=== PATIENT | female | born 1970 | race African-American/Black ===

== ENCOUNTER 2018-01-09 12:42 | Inpatient (IN) | payer OTHER ==
[2018-01-09] MEDS ORDERED: KETOROLAC TROMETHAMINE 30 MG/1 ML VIAL IVPUSH ONE (13:24)
[2018-01-09] MEDS ORDERED: diazePAM 5 MG TABLET PO ONE (13:25)
--- NOTE | 2018-01-09 13:31 | PDOC ---
History of Present Illness - General Chief Complaint: Pain Stated Complaint: BACK INJURY /PAIN Time Seen by Provider: 01/09/18 12:58 History Source: Patient Exam Limitations: No Limitations - History of Present Illness Initial Comments: 01/09/18 13:25 47 yr female with history of chronic back pain followed by pain management states woke up today with 10/10 low back pain left side more thatn right radiates to left leg. Pt has had this pain before however today is worse. Pt denies any recent trauma, no heavy lifting or bending. Pt denies any urine or bowel dysfunction. Pt took flexeril and meloxicamb this morning with no relief. Occurred: reports: this morning Severity: reports: severe Pain Location: reports: back Past History - Past Medical History Allergies/Adverse Reactions: Allergies Allergy/AdvReac Type Severity Reaction Status Date / Time No Known Allergies Allergy Verified 01/09/18 12:47 Home Medications: Ambulatory Orders Cyclobenzaprine HCl 10 mg PO ASDIR 01/09/18 Meloxicam 15 mg PO ASDIR 01/09/18 COPD: No Other medical history: chronic lower back pain 2016 s\p fall - Suicide/Smoking/Psychosocial Hx Smoking History: Current every day smoker Number of Cigarettes Smoked Daily: 5 Information on smoking cessation initiated: No Trauma Specific PMHX - Complaint Specific PMHX Arthritis: No Back Injury: Yes (work related 1 yr ago ) Review of Systems - Review of Systems Able to Perform ROS?: Yes Is the patient limited Italian proficient: No Constitutional: No: Symptoms Reported HEENTM: No: Symptoms Reported Respiratory: No: Symptoms reported Cardiac (ROS): No: Symptoms Reported ABD/GI: No: Symptoms Reported : No: Symptoms Reported Musculoskeletal: Yes: Back Pain *Physical Exam - Vital Signs Last Vital Signs Temp Pulse Resp BP Pulse Ox 98 F 86 18 133/91 97 01/09/18 12:45 01/09/18 12:45 01/09/18 12:45 01/09/18 12:45 01/09/18 12:45 - Physical Exam General Appearance: Yes: Nourished, Appropriately Dressed HEENT: positive: EOMI, CHELSY Neck: positive: Supple. negative: Tender Respiratory/Chest: positive: Lungs Clear, Normal Breath Sounds Cardiovascular: positive: Regular Rhythm, Regular Rate Musculoskeletal: positive: Normal Inspection, Decreased Range of Motion, Muscle Spasm, Vertebral Tenderness, Other (lumbar apraspinal soft tissue ttp , lumbar spine ttp ). negative: CVA Tenderness, CVA Tenderness (R), CVA Tenderness (L) Extremity: positive: Normal Capillary Refill, Normal Inspection, Other ( decreased ROM left leg due to pain ) Integumentary: positive: Normal Color, Dry, Warm Neurologic: positive: Normal Response, Motor Strength 5/5 ED Treatment Course - LABORATORY CBC & Chemistry Diagram: 01/09/18 13:35 01/09/18 17:10 Medical Decision Making - Medical Decision Making 01/09/18 13:30 cc: low back pain acute on chronic worse this AM pain radiates to left leg with numbness and tingling to the left leg neg saddle anesthesia neg urine or bowel dysfunction pt ambulatory with assistance, no fever no abd pain no rashes to skin noted will give iv toradol, check UA, cbc 01/09/18 15:02 pt states no relief from toradol or valium, states the pain is still 10/10 pt states she is unable to walk due to the pain 01/09/18 15:40 pt has had percocet with no relief. pt continues to cry as she stands up in pain , refuses to take afew steps due to left leg feeling weak and pain. at this time pt will be transfered to the Main ER for further workup possible observation admission. I have signed pt out to REJI Love charge nurse Aziza whitehead pt to go to [facility] in the main ER *DC/Admit/Observation/Transfer Diagnosis at time of Disposition: Low back pain Qualifiers: Chronicity: acute Back pain laterality: left Sciatica presence: with sciatica Sciatica laterality: sciatica of left side Qualified Code(s): M54.42 - Lumbago with sciatica, left side - Referrals Referrals: Tripp Ballesteros MD [Staff Physician] - - Patient Instructions Additional Instructions: apply ice every 2hrs for 20 minutes then apply heating pad for 30 minutes and repeat this for the next few days take percocet for severe pain, do not take with flexeril do not drive or drink alcohol while taking this medication take the steroid dose pack as directed stop taking the meloxicamb follow with your doctor this week - Post Discharge Activity
[2018-01-09] MEDS ORDERED: diazePAM 5 MG TABLET ONE (13:37)
[2018-01-09] MEDS ORDERED: KETOROLAC TROMETHAMINE 30 MG/1 ML VIAL ONE (13:37)
[2018-01-09 13:46] LABS: BASO % 0.8 % (0-2.0); HEMATOCRIT 36.2 % (32.4-45.2); LYMPH % 23.5 % (8-40); MCHC 33.2 g/dl (32.0-36.0); MEAN CELL VOLUME 81.2 fl (80-96); MEAN PLT VOLUME 8.7 fl (7.5-11.1); MONO % 5.2 % (3.8-10.2); NEUT % 69.5 % (42.8-82.8); PLATELET COUNT 268 K/MM3 (134-434); RBC 4.45 M/mm3 (3.60-5.2); RDW 15.9 % (11.6-15.6); WHITE BLOOD COUNT 7.3 K/mm3 (4.0-10.0)
[2018-01-09 13:56] LABS: URINE APPEARANCE SLCLOUDY; URINE BILIRUBIN NEGATIVE (<2.0 mg/dL); URINE GLUCOSE (UA) NEGATIVE (NEGATIVE); URINE KETONE NEGATIVE (NEGATIVE); URINE LEUK ESTERASE TRACE (NEGATIVE); URINE NITRITE NEGATIVE (NEGATIVE); URINE PROTEIN NEGATIVE (NEGATIVE)
[2018-01-09 13:57] LABS: HCG,QUALITATIVE URINE Negative
[2018-01-09 13:59] LABS: URINE COLOR DK YELLOW
[2018-01-09 14:00] LABS: EPI CELLS MODERATE /HPF (FEW); URINE MUCUS MANY
[2018-01-09] MEDS ORDERED: morphine CARPU-JECT 4 MG/1 ML DISP.SYRIN IM ONE (16:05)
[2018-01-09] MEDS ORDERED: morphine CARPU-JECT 4 MG/1 ML DISP.SYRIN IVPUSH ONE ×2 (16:33→18:12)
[2018-01-09] MEDS ORDERED: MORPHINE SULFATE 10 MG/1 ML *VIAL ONE (16:34)
--- NOTE | 2018-01-09 16:35 | PDOC ---
*Physical Exam - Vital Signs Last Vital Signs Temp Pulse Resp BP Pulse Ox 98 F 86 18 133/91 97 01/09/18 12:45 01/09/18 12:45 01/09/18 12:45 01/09/18 12:45 01/09/18 12:45 - Physical Exam Comments: 01/09/18 16:54 crying in ED General Appearance: Yes: Severe Distress Respiratory/Chest: negative: Respiratory Distress Gastrointestinal/Abdominal: positive: Tender, Soft. negative: Pulsatile Mass Lymphatic: negative: Tenderness Musculoskeletal: negative: CVA Tenderness Extremity: positive: Normal Inspection Integumentary: positive: Dry, Warm Neurologic: positive: Fully Oriented, Alert, Normal Mood/Affect (2/5 strength to LLE, unbale to bear weight) ED Treatment Course - LABORATORY CBC & Chemistry Diagram: 01/09/18 13:35 01/09/18 17:10 - ADDITIONAL ORDERS Additional order review: Laboratory Results 01/09/18 13:15 Urine Color Dk yellow Urine Appearance Slcloudy Urine pH 5.0 Ur Specific [place] 1.020 Urine Protein Negative Urine Glucose (UA) Negative Urine Ketones Negative Urine Blood Negative Urine Nitrite Negative Urine Bilirubin Negative Urine Urobilinogen 2.0 H Ur Leukocyte Esterase Trace Urine WBC (Auto) 27 Urine RBC (Auto) 8 Ur Epithelial Cells Moderate Urine Mucus Many Urine HCG, Qual Negative 01/09/18 13:35 RBC 4.45 MCV 81.2 MCHC 33.2 RDW 15.9 H MPV 8.7 Neutrophils % 69.5 Lymphocytes % 23.5 Monocytes % 5.2 Eosinophils % 1.0 Basophils % 0.8 - RADIOLOGY Radiology Studies Ordered: Category Date Time Status LUMBAR SPINE CT W/O CONTRAST [CT] Stat CT Scan 01/09/18 16:05 Ordered - Medications Given in the ED: ED Medications Discontinued Medications Generic Name Dose Route Start Last Admin Trade Name Freq PRN Reason Stop Dose Admin Diazepam 5 mg 01/09/18 13:25 01/09/18 13:40 Valium - PO 01/09/18 13:26 5 mg ONCE ONE Administration Ketorolac Tromethamine 30 mg 01/09/18 13:24 01/09/18 13:40 Toradol Injection - IVPUSH 01/09/18 13:25 30 mg ONCE ONE Administration Oxycodone/Acetaminophen 1 combo 01/09/18 15:04 01/09/18 15:16 Percocet 5/325 - PO 01/09/18 15:05 1 combo ONCE ONE Administration Medical Decision Making - Medical Decision Making 01/09/18 16:34 Pt upgraded to main ED from for intractable back pain Patient is a 47-year-old female with history of chronic back and b/l knee pain s /p injury at work 2 years ago. States she was told she had multiple disc herniations with possible sciatica on MRI in the past. Currently receives steroid injections with outside pain management and scheduled for possible surgery in the near future with her ortho spine doctor in the [place]. On meloxicam and flexeril now at home. Patient states pain acutely worsened last night, located to lumbar spine and radiates to posterior aspect of left foot. Unable to bear weight since last night w/ ?weakness of LLE. No numbness, saddle anesthesia or B/B incontinence. Concern is for ? cauda equina. Will get labs and place order for MRI at this time. Will continue to manage pain 01/09/18 18:40 Pt unable to tolerate MRI given significant pain when she attempts to lay down. Despite 8 mg of morphine, pain persists. Given dilaudid and IV Tylenol at this time. Will reassess. Signed out to DINESH Ortiz pending MRI and admission for intractable back pain *DC/Admit/Observation/Transfer Diagnosis at time of Disposition: Low back pain Qualifiers: Chronicity: acute Back pain laterality: left Sciatica presence: with sciatica Sciatica laterality: sciatica of left side Qualified Code(s): M54.42 - Lumbago with sciatica, left side - Referrals Referrals: Tripp Ballesteros MD [Staff Physician] - - Patient Instructions Additional Instructions: apply ice every 2hrs for 20 minutes then apply heating pad for 30 minutes and repeat this for the next few days take percocet for severe pain, do not take with flexeril do not drive or drink alcohol while taking this medication take the steroid dose pack as directed stop taking the meloxicamb follow with your doctor this week - Post Discharge Activity
[2018-01-09 17:41] LABS: INR 1.02 (0.83-1.09); PROTHROMBIN TIME (PATIENT) 11.5 SEC (9.7-13.0)
[2018-01-09 17:56] LABS: ALBUMIN 3.5 g/dl (3.4-5.0); ANION GAP 6 MMOL/L (8-16); BILIRUBIN,TOTAL 0.3 mg/dL (0.2-1.0); BLOOD UREA NITROGEN 8 mg/dL (7-18); CALCIUM 8.6 mg/dL (8.5-10.1); CHLORIDE 109 mmol/L (98-107); CO2 25 mmol/L (21-32); CREATININE 0.6 mg/dL (0.55-1.02); GLUCOSE,RANDOM 93 mg/dL (74-106); POTASSIUM 4.1 mmol/L (3.5-5.1); SGOT/AST 16 U/L (15-37); SGPT/ALT 21 U/L (12-78); SODIUM 140 mmol/L (136-145); TOT PROT 6.4 g/dl (6.4-8.2)
[2018-01-09 17:57] LABS: ALK PHOS 74 U/L (45-117)
[2018-01-09] MEDS ORDERED: morphine SULFATE 4 MG/ML VIAL ONE ×2 (18:13→22:59)
[2018-01-09] MEDS ORDERED: ACETAMINOPHEN 1000 MG/100 ML VIAL (NON FORMULARY) IVPB ONE (18:36)
[2018-01-09] MEDS ORDERED: ACETAMINOPHEN INJECTION 100 ML IVPB ONE (18:40)
[2018-01-09] MEDS ORDERED: HYDROmorphone HCL CARPU-JECT 2 MG/1 ML DISP.SYRIN ONE (18:47)
[2018-01-09] MEDS ORDERED: HYDROmorphone HCL CARPU-JECT 2 MG/1 ML DISP.SYRIN IVPUSH ONE (19:05)
[2018-01-09] MEDS ORDERED: HYDROmorphone HCL CARPU-JECT 2 MG/1 ML DISP.SYRIN IVPB ONE (19:26)
--- NOTE | 2018-01-09 19:43 | PDOC ---
*Physical Exam - Vital Signs Last Vital Signs Temp Pulse Resp BP Pulse Ox 98.4 F 69 16 125/73 99 01/09/18 18:03 01/09/18 18:03 01/09/18 18:03 01/09/18 18:03 01/09/18 18:03 ED Treatment Course - LABORATORY CBC & Chemistry Diagram: 01/09/18 13:35 01/09/18 17:10 - ADDITIONAL ORDERS Additional order review: Laboratory Results 01/09/18 01/09/18 01/09/18 17:10 17:10 17:10 PT with INR 11.50 INR 1.02 Sodium 140 Potassium 4.1 Chloride 109 H Carbon Dioxide 25 Anion Gap 6 L BUN 8 Creatinine 0.6 Creat Clearance w eGFR > 60 Random Glucose 93 Calcium 8.6 Total Bilirubin 0.3 AST 16 ALT 21 Alkaline Phosphatase 74 Total Protein 6.4 Albumin 3.5 Urine Color Urine Appearance Urine pH Ur Specific [place] Urine Protein Urine Glucose (UA) Urine Ketones Urine Blood Urine Nitrite Urine Bilirubin Urine Urobilinogen Ur Leukocyte Esterase Urine WBC (Auto) Urine RBC (Auto) Ur Epithelial Cells Urine Mucus Urine HCG, Qual Blood Type A POSITIVE Antibody Screen Negative 01/09/18 13:15 PT with INR INR Sodium Potassium Chloride Carbon Dioxide Anion Gap BUN Creatinine Creat Clearance w eGFR Random Glucose Calcium Total Bilirubin AST ALT Alkaline Phosphatase Total Protein Albumin Urine Color Dk yellow Urine Appearance Slcloudy Urine pH 5.0 Ur Specific [place] 1.020 Urine Protein Negative Urine Glucose (UA) Negative Urine Ketones Negative Urine Blood Negative Urine Nitrite Negative Urine Bilirubin Negative Urine Urobilinogen 2.0 H Ur Leukocyte Esterase Trace Urine WBC (Auto) 27 Urine RBC (Auto) 8 Ur Epithelial Cells Moderate Urine Mucus Many Urine HCG, Qual Negative Blood Type Antibody Screen 01/09/18 13:35 RBC 4.45 MCV 81.2 MCHC 33.2 RDW 15.9 H MPV 8.7 Neutrophils % 69.5 Lymphocytes % 23.5 Monocytes % 5.2 Eosinophils % 1.0 Basophils % 0.8 - Medications Given in the ED: ED Medications Discontinued Medications Generic Name Dose Route Start Last Admin Trade Name Freq PRN Reason Stop Dose Admin Acetaminophen 1,000 mg 01/09/18 18:36 01/09/18 18:51 Ofirmev Injection - IVPB 01/09/18 18:37 1,000 mg ONCE ONE Administration Diazepam 5 mg 01/09/18 13:25 01/09/18 13:40 Valium - PO 01/09/18 13:26 5 mg ONCE ONE Administration Hydromorphone HCl 2 mg 01/09/18 19:05 01/09/18 18:50 Dilaudid Injection - IVPUSH 01/09/18 19:06 2 mg NOW ONE Administration Ketorolac Tromethamine 30 mg 01/09/18 13:24 01/09/18 13:40 Toradol Injection - IVPUSH 01/09/18 13:25 30 mg ONCE ONE Administration Morphine Sulfate 4 mg 01/09/18 16:05 01/09/18 16:45 Morphine Injection - IM 01/09/18 16:06 Not Given ONCE ONE Morphine Sulfate 4 mg 01/09/18 16:33 01/09/18 16:44 Morphine Injection - IVPUSH 01/09/18 16:34 4 mg ONCE ONE Administration Morphine Sulfate 4 mg 01/09/18 18:12 01/09/18 18:18 Morphine Injection - IVPUSH 01/09/18 18:13 4 mg ONCE ONE Administration Oxycodone/Acetaminophen 1 combo 01/09/18 15:04 01/09/18 15:16 Percocet 5/325 - PO 01/09/18 15:05 1 combo ONCE ONE Administration Progress Note - Progress Note Progress Note: Received signout from REJI Agosto Briefly this is a 47-year-old woman past medical history of chronic back pain status post injury at work who presents with acute on chronic lower back pain. Patient reports she had multiple disc herniations and questionable sciatica on MRI in the past. Patient here today with acute on chronic pain and has received Valium 5 mg orally, Toradol 30 mg IV, Percocet 1 tablet, 8 mg of morphine 2 doses and 2 mg of Dilaudid IV. Plan is to have MRI to rule out cauda equina. Patient to be admitted for intractable back pain pending MRI results. Medical Decision Making - Medical Decision Making 01/09/18 22:21 MRI is read by imaging soil conservation technician: Mild degenerative changes with mild bilateral neural foraminal narrowing at the L5-S1 level. Otherwise normal MRI of the lumbar spine. Patient continues to have back pain radiating down her left lower extremity and doesn't have the ability to bear weight at this time. I'll admit the patient to the hospitalist service for intractable back pain. 01/10/18 00:12 Case discussed with who accepts patient for [facility] observation *DC/Admit/Observation/Transfer Diagnosis at time of Disposition: Low back pain Qualifiers: Chronicity: acute Back pain laterality: left Sciatica presence: with sciatica Sciatica laterality: sciatica of left side Qualified Code(s): M54.42 - Lumbago with sciatica, left side - Discharge Dispostion Condition at time of disposition: Fair Decision to Admit order: Yes - Referrals Referrals: Tripp Ballesteros MD [Staff Physician] - - Patient Instructions Additional Instructions: apply ice every 2hrs for 20 minutes then apply heating pad for 30 minutes and repeat this for the next few days take percocet for severe pain, do not take with flexeril do not drive or drink alcohol while taking this medication take the steroid dose pack as directed stop taking the meloxicamb follow with your doctor this week - Post Discharge Activity
[2018-01-09] MEDS ORDERED: morphine SULFATE 4 MG/ML VIAL IVPUSH ONE (22:48)
[2018-01-10] MEDS ORDERED: KETOROLAC TROMETHAMINE 15 MG/ML VIAL IVPUSH PRN ×2 (01:31→09:00)
--- NOTE | 2018-01-10 01:31 | HP ---
CHIEF COMPLAINT: Lower back pain PCP: [facility] Ortho: Dr. Syed Nelson Pain Management: Dr. Campoverde HISTORY OF PRESENT ILLNESS: 47 y/o Female with a PMHx of Chronic lower back pain (due to a work injury in ) presents with increased Lower back pain. Patient woke this morning with 10/ 10, pinching Lower back pain, L>R, that is shooting down her Left leg (on all sides, anteriorly, posteriorly, lateralyl, medially) accompanied by numbness, tingling and weakness. She felt she was going to collapse whenever she stands however she is able to walk a few steps with increased pain. She normally takes Flexeril and Meloxicam to manage her chronic back pain, and she tried both this morning without any relief. She tried calling Dr. Bowers office and Dr. Campoverde's offices however she was not able to be seen today. She denies any recent trauma , heavy lifting, bending, urinary or bowel incontinence, saddle anesthesia sx. Of note, She visited the [facility] this past Monday and is being treated for a UTI with Macrobid. 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 Lives at home with Ambulates on her own Family History: Mother: of pancreatic cancer, DM Father: Lung cancer Allergies No Known Allergies Allergy (Verified 01/09/18 12:47) HOME MEDICATIONS: Home Medications Medication Instructions Recorded Cyclobenzaprine HCl 10 mg PO ASDIR 01/09/18 Meloxicam 15 mg PO ASDIR 01/09/18 REVIEW OF SYSTEMS CONSTITUTIONAL: Absent: fever, chills, diaphoresis, generalized weakness, malaise, loss of appetite, weight change HEENT: Absent: rhinorrhea, nasal congestion, throat pain, throat swelling, difficulty swallowing, mouth swelling, ear pain, eye pain, visual changes CARDIOVASCULAR: Present: peripheral edema Absent: chest pain, syncope, palpitations, irregular heart rate, lightheadedness RESPIRATORY: Absent: cough, shortness of breath, dyspnea with exertion, orthopnea, wheezing, stridor, hemoptysis GASTROINTESTINAL: Absent: abdominal pain, abdominal distension, nausea, vomiting, diarrhea, constipation, melena, hematochezia GENITOURINARY: Absent: dysuria, frequency, urgency, hesitancy, hematuria, flank pain, genital pain MUSCULOSKELETAL: Present: back pain Absent: myalgia, arthralgia, joint swelling, neck pain SKIN: Absent: rash, itching, pallor HEMATOLOGIC/IMMUNOLOGIC: Absent: easy bleeding, easy bruising, lymphadenopathy, frequent infections ENDOCRINE: Absent: unexplained weight gain, unexplained weight loss, heat intolerance, cold intolerance NEUROLOGIC: Present: focal weakness or paresthesias, unsteady gait Absent: headache, dizziness, seizure, mental status changes, bladder or bowel incontinence PSYCHIATRIC: Absent: anxiety, depression, suicidal or homicidal ideation, hallucinations. PHYSICAL EXAMINATION Vital Signs - 24 hr 01/09/18 01/09/18 12:45 18:03 Temperature 98 F 98.4 F Pulse Rate 86 Pulse Rate [ 69 Apical] Respiratory 18 16 Rate Blood Pressure 133/91 Blood Pressure 125/73 [Left Arm] O2 Sat by Pulse 97 99 Oximetry (%) GENERAL: Awake, alert, and fully oriented, in mild acute distress, begins to cry and tear up during the exam. HEAD: NCAT EYES: PERRLA, EOMI THROAT: Oropharynx clear without exudates. Moist mucous membranes. NECK: Supple, No JVD LUNGS: Breath sounds equal, clear to auscultation bilaterally. No wheezes, no crackles. HEART: Regular rate and rhythm, normal S1 and S2 without murmur. ABDOMEN: Soft, nontender, not distended, normoactive bowel sounds, no rebound. MUSCULOSKELETAL: Decreased ROM of the Left Lower extremity, Patient complains of extreme pain and is barely able to move the hip joint, knee joint or ankle joint. No bony deformities noted. Left Lumbar paraspinal muscles/tissue tender to palpation. No CVA tenderness. EXTREMITIES: 2+ pulses, No calf tenderness. 1+ pitting edema. NEUROLOGICAL: Cranial nerves II-XII intact. Normal speech. Unable to observe gait as patient unable to bare weight. Decreased sensation in the Left upper and lower extremity, Right upper and lower extremity 5/5 muscle strength, Left upper and lower extremity 3/5 muscle strength SKIN: Warm, dry, no rashes or lesions noted Laboratory Results - last 24 hr 01/09/18 01/09/18 01/09/18 13:15 13:35 17:10 WBC 7.3 RBC 4.45 Hgb 12.0 Hct 36.2 MCV 81.2 MCH 27.0 MCHC 33.2 RDW 15.9 H Plt Count 268 MPV 8.7 Absolute Neuts (auto) 5.0 Neutrophils % 69.5 Lymphocytes % 23.5 Monocytes % 5.2 Eosinophils % 1.0 Basophils % 0.8 Nucleated RBC % 0 PT with INR 11.50 INR 1.02 Sodium Potassium Chloride Carbon Dioxide Anion Gap BUN Creatinine Creat Clearance w eGFR Random Glucose Calcium Total Bilirubin AST ALT Alkaline Phosphatase Total Protein Albumin Urine Color Dk yellow Urine Appearance Slcloudy Urine pH 5.0 Ur Specific [place] 1.020 Urine Protein Negative Urine Glucose (UA) Negative Urine Ketones Negative Urine Blood Negative Urine Nitrite Negative Urine Bilirubin Negative Urine Urobilinogen 2.0 H Ur Leukocyte Esterase Trace Urine WBC (Auto) 27 Urine RBC (Auto) 8 Ur Epithelial Cells Moderate Urine Mucus Many Urine HCG, Qual Negative Blood Type Antibody Screen 01/09/18 01/09/18 17:10 17:10 WBC RBC Hgb Hct MCV MCH MCHC RDW Plt Count MPV Absolute Neuts (auto) Neutrophils % Lymphocytes % Monocytes % Eosinophils % Basophils % Nucleated RBC % PT with INR INR Sodium 140 Potassium 4.1 Chloride 109 H Carbon Dioxide 25 Anion Gap 6 L BUN 8 Creatinine 0.6 Creat Clearance w eGFR > 60 Random Glucose 93 Calcium 8.6 Total Bilirubin 0.3 AST 16 ALT 21 Alkaline Phosphatase 74 Total Protein 6.4 Albumin 3.5 Urine Color Urine Appearance Urine pH Ur Specific [place] Urine Protein Urine Glucose (UA) Urine Ketones Urine Blood Urine Nitrite Urine Bilirubin Urine Urobilinogen Ur Leukocyte Esterase Urine WBC (Auto) Urine RBC (Auto) Ur Epithelial Cells Urine Mucus Urine HCG, Qual Blood Type A POSITIVE Antibody Screen Negative Active Medications Cyclobenzaprine HCl (Flexeril -) 10 mg PO HS [facility] Heparin Sodium (Porcine) (Heparin -) 5,000 unit SQ TID [facility] Ketorolac Tromethamine (Toradol Injection -) 30 mg IVPUSH Q6H PRN PRN Reason: PAIN LEVEL 1-5 Stop: 01/15/18 01:30 Lidocaine (Lidoderm Patch -) 1 patch TP DAILY [facility] Methylprednisolone Sodium Succinate (Solu-Medrol -) 40 mg IVPUSH DAILY [facility] Miscellaneous (Lidoderm Patch Removal) 1 each MC DAILY@2200 [facility] Morphine Sulfate (Morphine Sulfate) 4 mg IVPUSH Q4H PRN PRN Reason: PAIN LEVEL 7 - 10 Non-Formulary Medication (Meloxicam [Meloxicam]) 15 mg PO DAILY [facility] Non-Formulary Medication (Nitrofurantoin Monohyd/M-Cryst) 100 mg PO DAILY [facility] IMAGING: - Lumbar XRay: The AP view shows 5 lumbar type vertebral bodies with patent SI joints, slight scoliosis and right upper quadrant clips. There is motion artifact. There s retained stool. Lateral and spot lateral views show no sign of fracture or subluxation and no sign of blastic or lytic changes. There is straightening. The intervertebral disc space are preserved. The prevertebral soft tissues are intact. Since the prior study of 01/19/2005, there is no change of an adverse nature. Correlation recommended. If symptoms persist, further imaging may be of help. - Lumbar MRI Imaging supervisor mirror fabrication: L4-L5 some mild degenerative disc disease with a mild broad-based posterior disc bulge and some facet degenerative changes but no spinal stenosis or neural foraminal narrowing. L5-S1 mild broad-based posterior disc bulge associated with bilateral facet degenerative changes causing mild bilateral neural foraminal narrowing, but no spinal stenosis. MIld degenerative changes with mild bilateral neural foraminal narrowwing at the L5- S1 level. ASSESSMENT/PLAN: 47 y/o Female with a PMHx of Chronic lower back pain, currently on Flexeril and Meloxicam presents with 10/10, pinching Lower back pain and is admitted for intractable back pain. 1. Intractable back pain - Tried Flexeril and Meloxicam home doses with minimal relief - ED has given Acetaminophen IV, Percocet, Toradol 30mg, Valium 5mg, Morphine 4g , Dilaudid 2mg with minimal relief - Lumbar XRay: No sign of fracture or subluxation and no sign of blastic or lytic changes. Since the prior study of 01/19/2005, there is no change of an adverse nature. - Lumbar MRI Imaging supervisor mirror fabrication: Mild degenerative changes with mild bilateral neural foraminal narrowwing at the L5-S1 level. - Orthopedic surgery (Dr. Nelson) Consulted - Pain management (Dr. Campoverde) consulted - Pain control via Morphine 4mg, Toradol 30mg, Lidocaine patch, warm compresses - Solumederol 40mg - PT Consult 2. UTI - Currently on day 5 of a 7 day course of Macrobid - UA: Urobilinogen 2.0, Trace LE, 27 WBC, 8 RBC - Continue to monitor for UTI Sx's 3. FEN - PO Fluids - Lytes WNL - Regular diet 4. PPx - DVT: Heparin Dispo: Admit to med surg Visit type - Emergency Visit Emergency Visit: Yes ED Registration Date: 01/10/18 Care time: The patient presented to the Emergency Department on the above date and was hospitalized for further evaluation of their emergent condition. - New Patient This patient is new to me today: Yes Date on this admission: 01/10/18 - Critical Care Critical Care patient: No Hospitalist Screening - Colonoscopy Questionnaire Colonoscopy Questionnaire: Colonoscopy Questionnaire - Patient: 50 - 75 years old and never had a screening colonoscopy: Unknown History of colon or rectal polyps, or CA: Unknown History of IBD, Crohn's disease or UC: Unknown History of abdominal radiation therapy as a child: Unknown - Relative: 1 with colon or rectal CA, or polyps at age 60 or younger: Unknown Colon or rectal CA diagnosed at age 45 or younger: Unknown Multiple relatives with colon or rectal CA: Unknown - Outcome: Screening Result: Negative Screen
--- NOTE | 2018-01-10 03:19 | PN ---
Teaching Attending Note Name of Resident: Olimpia Arzate ATTENDING PHYSICIAN STATEMENT I saw and evaluated the patient. I reviewed the resident's note and discussed the case with the resident. I agree with the resident's findings and plan as documented. SUBJECTIVE: Patient is a 47 year old woman with a PMHx of lumbar disc disease, chronic low back pain (due to a work injury in 04/29), obesity and tobacco use who presents with increased lower back pain. Patient woke this morning with 10/10, pinching Lower back pain, L>R, that is shooting down her Left leg (on all sides, anteriorly, posteriorly, lateralyl, medially) accompanied by numbness, tingling and weakness. She felt she was going to collapse whenever she stands however she is able to walk a few steps with increased pain. None of her usual medications (Flexeril, Meloxicam) provided relief. She denies any recent trauma , heavy lifting, bending, urinary or fecal incontinence, or symptoms of saddle anesthesia. On day 5 of Macrobid for UTI. LMP ended last week. OBJECTIVE:Alert Vital Signs Period Temp Pulse Resp BP Sys/Brenner Pulse Ox Last 24 Hr 98 F-98.4 F 69-86 16-18 125-133/73-91 97-99 HEENT: No Jaundice, eye redness or discharge, PERRLA, EOMI. Normocephalic, atraumatic. External ears are normal and hearing is grossly intact. No nasal discharge. Neck: Supple, nontender. No palpable adenopathy or thyromegaly. No JVD Chest: Good effort. Clear to auscultation and percussion. Heart: Regular. No S3, rub or murmur Abdomen: Not distended, soft, nontender and no HSM. No rebound or guarding. Normoactive bowel sounds. Ext: Peripheral pulses intact. No leg edema. Tender lower back area more to the left. Skin: Warm and dry. No petechiae, rash or ecchymosis. Neuro: Alert. Oriented x3. CN 2-12 grossly intact. Sensation grossly intact in all four extremities; severe pain with movement of left leg, unable to lie flat. Current Medications Generic Name Dose Route Start Last Admin Trade Name Freq PRN Reason Stop Dose Admin Cyclobenzaprine HCl 10 mg 01/10/18 22:00 Flexeril - PO HS SANDRA Heparin Sodium (Porcine) 5,000 unit 01/10/18 06:00 Heparin - SQ TID [facility] Ketorolac Tromethamine 30 mg 01/10/18 01:31 Toradol Injection - IVPUSH 01/15/18 01:30 Q6H PRN PAIN LEVEL 1-5 Lidocaine 1 patch 01/10/18 10:00 Lidoderm Patch - TP DAILY [facility] Methylprednisolone Sodium Succinate 40 mg 01/10/18 10:00 Solu-Medrol - IVPUSH DAILY [facility] Miscellaneous 1 each 01/10/18 22:00 Lidoderm Patch Removal MC DAILY@2200 [facility] Morphine Sulfate 4 mg 01/10/18 01:31 Morphine Sulfate IVPUSH Q4H PRN PAIN LEVEL 7 - 10 Non-Formulary Medication 15 mg 01/10/18 10:00 Meloxicam [Meloxicam] PO DAILY [facility] Non-Formulary Medication 100 mg 01/10/18 10:00 Nitrofurantoin Monohyd/M-Cryst PO DAILY [facility] Home Medications Medication Instructions Recorded Cyclobenzaprine HCl 10 mg PO HS 01/09/18 Meloxicam 15 mg PO DAILY 01/09/18 Nitrofurantoin Monohyd/M-Cryst 100 mg PO DAILY 01/10/18 [Macrobid -] Abnormal Lab Results 01/09/18 01/09/18 01/09/18 13:15 13:35 17:10 RDW 15.9 H Chloride 109 H Anion Gap 6 L Urine Urobilinogen 2.0 H ASSESSMENT AND PLAN: 1. Severe exacerbation of chronic low back pain - MRI shows foraminal narrowing in L5-S1 and degenerative changes. Will treat with IV morphine, toradol, lidocaine patch, warm compress and solumedrol. Consult Ortho, Neurology and PT. Patient counseled about the side effects of halfway use of Meloxicam. Will complete 7 day course of Macrobid since she still has evidence of UTI. 2. Tobacco Use We will provide patient all the necessary assistance to facilitate smoking cessation and prescribe Nicotine patch. 3. Obesity - Will provide patient all the necessary assistance, counseling and positive reinforcement to facilitate weight loss. Consult palliative medicine physician. 4. DVT prophylaxis - Lovenox 40 mg SQ q 24 hours. 5. Advance directives - Full code
[2018-01-10] MEDS ORDERED: morphine SULFATE 4 MG/ML VIAL ONE (04:09)
[2018-01-10] MEDS: morphine SULFATE 4 MG/ML VIAL IVPUSH PRN ×2 (04:23→08:41)
[2018-01-10 06:40] LABS: BASO % 0.7 % (0-2.0); EOS % 1.4 % (0-4.5); HEMATOCRIT 36.8 % (32.4-45.2); MCH 26.5 pg (25.7-33.7); MCHC 32.7 g/dl (32.0-36.0); MEAN CELL VOLUME 81.2 fl (80-96); MEAN PLT VOLUME 8.4 fl (7.5-11.1); MONO % 7.7 % (3.8-10.2); NEUT % 59.2 % (42.8-82.8); PLATELET COUNT 259 K/MM3 (134-434); RBC 4.54 M/mm3 (3.60-5.2); RDW 16.2 % (11.6-15.6); WHITE BLOOD COUNT 7.7 K/mm3 (4.0-10.0)
[2018-01-10] MEDS: HEPARIN NA (PORCINE) 5,000 UNITS/ML 1ML VIAL SQ SCH ×2 (06:45→14:04)
[2018-01-10] MEDS ORDERED: HEPARIN NA (PORCINE) 5,000 UNITS/ML 1ML VIAL ONE (06:48)
[2018-01-10 07:05] LABS: ALBUMIN 3.5 g/dl (3.4-5.0); ANION GAP 6 MMOL/L (8-16); BLOOD UREA NITROGEN 8 mg/dL (7-18); CALCIUM 8.7 mg/dL (8.5-10.1); CHLORIDE 106 mmol/L (98-107); CO2 27 mmol/L (21-32); CREATININE 0.5 mg/dL (0.55-1.02); GLUCOSE,RANDOM 95 mg/dL (74-106); MAGNESIUM 1.9 mg/dL (1.8-2.4); PHOSPHOROUS 3.4 mg/dL (2.5-4.9); POTASSIUM 3.9 mmol/L (3.5-5.1); SGOT/AST 16 U/L (15-37); SGPT/ALT 20 U/L (12-78); SODIUM 139 mmol/L (136-145)
[2018-01-10 07:07] LABS: ALK PHOS 73 U/L (45-117); BILIRUBIN,TOTAL 0.3 mg/dL (0.2-1.0); TOT PROT 6.4 g/dl (6.4-8.2)
[2018-01-10] MEDS ORDERED: MORPHINE SULFATE 2 MG/ML VIAL IVPUSH PRN (08:46)
[2018-01-10] MEDS ORDERED: PATIENT'S OWN MEDICATION (NON-FORMULARY) (Meloxicam [Meloxicam] 15 MG) PO SCH (10:00)
[2018-01-10] MEDS ORDERED: PATIENT'S OWN MEDICATION (NON-FORMULARY) (Nitrofurantoin Monohyd/M-Cryst 100 MG) PO SCH (10:00)
[2018-01-10] MEDS: LIDOCAINE 5% TOPICAL PATCH TP SCH (10:16)
[2018-01-10] MEDS: methylPREDNISolone NA SUCC 40 MG/1 ML VIAL IVPUSH SCH (10:16)
--- NOTE | 2018-01-10 10:26 | PN ---
Physical Exam: SUBJECTIVE: Patient seen and examined this AM. She states that her back pain is still severe this morning and that she is unable to lie flat and that she is able to get some relief by sitting up. States she is also having numbness and tingling in addition to some swelling in her left leg. OBJECTIVE: Vital Signs Period Temp Pulse Resp BP Sys/Brenner Pulse Ox Last 24 Hr 97.7 F-98.4 F 67-86 16-20 119-133/72-91 97-100 GENERAL: A&O, Obese female in mild distress likely secondary to pain HEAD: Normocephalic, atraumatic. EYES: PERRL, no scleral icterus EARS, NOSE, THROAT: oropharynx clear without exudates. Moist mucous membranes. NECK: supple without lymphadenopathy LUNGS: CTA b/l, no crackles or wheezes HEART: Regular rate and rhythm, normal S1 and S2 without murmur ABDOMEN: Soft, nontender to palpation, normoactive bowel sounds MUSCULOSKELETAL: Tenderness on palpation of back initially in thoracic region, then in lumbar region b/l EXTREMITIES: 2+ pulses, warm, well-perfused. nonpitting edema on left ankle and foot NEUROLOGICAL: Cranial nerves II-XII grossly intact. strength exam limited due to pain. decreased sensation on left leg compared to right. PSYCHIATRIC: Cooperative. Good eye contact. Appropriate mood and affect. SKIN: Warm, dry, no rashes or lesions noted Laboratory Results - last 24 hr 01/09/18 01/09/18 01/09/18 13:15 13:35 17:10 WBC 7.3 RBC 4.45 Hgb 12.0 Hct 36.2 MCV 81.2 MCH 27.0 MCHC 33.2 RDW 15.9 H Plt Count 268 MPV 8.7 Absolute Neuts (auto) 5.0 Neutrophils % 69.5 Lymphocytes % 23.5 Monocytes % 5.2 Eosinophils % 1.0 Basophils % 0.8 Nucleated RBC % 0 PT with INR 11.50 INR 1.02 Sodium Potassium Chloride Carbon Dioxide Anion Gap BUN Creatinine Creat Clearance w eGFR Random Glucose Calcium Phosphorus Magnesium Total Bilirubin AST ALT Alkaline Phosphatase Total Protein Albumin Urine Color Dk yellow Urine Appearance Slcloudy Urine pH 5.0 Ur Specific [place] 1.020 Urine Protein Negative Urine Glucose (UA) Negative Urine Ketones Negative Urine Blood Negative Urine Nitrite Negative Urine Bilirubin Negative Urine Urobilinogen 2.0 H Ur Leukocyte Esterase Trace Urine WBC (Auto) 27 Urine RBC (Auto) 8 Ur Epithelial Cells Moderate Urine Mucus Many Urine HCG, Qual Negative Blood Type Antibody Screen 01/09/18 01/09/18 01/10/18 17:10 17:10 06:20 WBC 7.7 RBC 4.54 Hgb 12.0 Hct 36.8 MCV 81.2 MCH 26.5 MCHC 32.7 RDW 16.2 H Plt Count 259 MPV 8.4 Absolute Neuts (auto) 4.5 Neutrophils % 59.2 Lymphocytes % 31.0 D Monocytes % 7.7 Eosinophils % 1.4 Basophils % 0.7 Nucleated RBC % 0 PT with INR INR Sodium 140 Potassium 4.1 Chloride 109 H Carbon Dioxide 25 Anion Gap 6 L BUN 8 Creatinine 0.6 Creat Clearance w eGFR > 60 Random Glucose 93 Calcium 8.6 Phosphorus Magnesium Total Bilirubin 0.3 AST 16 ALT 21 Alkaline Phosphatase 74 Total Protein 6.4 Albumin 3.5 Urine Color Urine Appearance Urine pH Ur Specific [place] Urine Protein Urine Glucose (UA) Urine Ketones Urine Blood Urine Nitrite Urine Bilirubin Urine Urobilinogen Ur Leukocyte Esterase Urine WBC (Auto) Urine RBC (Auto) Ur Epithelial Cells Urine Mucus Urine HCG, Qual Blood Type A POSITIVE Antibody Screen Negative 01/10/18 06:20 WBC RBC Hgb Hct MCV MCH MCHC RDW Plt Count MPV Absolute Neuts (auto) Neutrophils % Lymphocytes % Monocytes % Eosinophils % Basophils % Nucleated RBC % PT with INR INR Sodium 139 Potassium 3.9 Chloride 106 Carbon Dioxide 27 Anion Gap 6 L BUN 8 Creatinine 0.5 L Creat Clearance w eGFR > 60 Random Glucose 95 Calcium 8.7 Phosphorus 3.4 Magnesium 1.9 Total Bilirubin 0.3 AST 16 ALT 20 Alkaline Phosphatase 73 Total Protein 6.4 Albumin 3.5 Urine Color Urine Appearance Urine pH Ur Specific [place] Urine Protein Urine Glucose (UA) Urine Ketones Urine Blood Urine Nitrite Urine Bilirubin Urine Urobilinogen Ur Leukocyte Esterase Urine WBC (Auto) Urine RBC (Auto) Ur Epithelial Cells Urine Mucus Urine HCG, Qual Blood Type Antibody Screen Active Medications Generic Name Dose Route Start Last Admin Trade Name Freq PRN Reason Stop Dose Admin Cyclobenzaprine HCl 10 mg 01/10/18 22:00 Flexeril - PO HS SANDRA Heparin Sodium (Porcine) 5,000 unit 01/10/18 06:00 01/10/18 06:45 Heparin - SQ 5,000 unit TID [facility]DRA Administration Ketorolac Tromethamine 30 mg 01/10/18 09:00 Toradol Injection - IVPUSH 01/15/18 08:59 Q6H PRN PAIN LEVEL 7 - 10 Lidocaine 1 patch 01/10/18 10:00 01/10/18 10:16 Lidoderm Patch - TP 1 patch DAILY [facility] Administration Methylprednisolone Sodium Succinate 40 mg 01/10/18 10:00 01/10/18 10:16 Solu-Medrol - IVPUSH 40 mg DAILY [facility] Administration Miscellaneous 1 each 01/10/18 22:00 Lidoderm Patch Removal MC DAILY@2200 [facility] Morphine Sulfate 2 mg 01/10/18 08:46 Morphine Sulfate IVPUSH Q4H PRN PAIN LEVEL 7 - 10 Non-Formulary Medication 15 mg 01/10/18 10:00 Meloxicam [Meloxicam] PO DAILY [facility] Non-Formulary Medication 100 mg 01/10/18 10:00 Nitrofurantoin Monohyd/M-Cryst PO DAILY [facility] ASSESSMENT/PLAN: 47 yo female with chronic low back pain secondary to spinal stenosis admitted for acute onset of worsening back pain. Pt also currently on therapy for UTI. Acute on Chronic Low back pain with radiculopathy to left leg -Pt denies any recent trauma or heavy lifting, unsure of etiology of worsening pain at this time -Pt with no signs of saddle anesthesia and denies any bladder or bowel incontinence or retention -Pt with swelling of left extremity most likely dependent due to minimal use secondary to pain -Case discussed with Dr. Nelson who knows the patient well Pt with known severe lumbar stenosis and radiculopathy -She is not currently a surgical candidate due to her obesity but bariatric surgery is being considered at this time. -Pain being managed with Toradol 30 mg IV Q6 PRN, Morphine 2 mg IV Q4 PRN, Lidocaine patch, warm pack prn. -Pain management consult ordered. Pt sees Dr. Campoverde outpatient who is currently unavailabe as per office staff. -Will continue to monitor and manage pain with hopes to discharge once controlled UTI -Pt being treated with macrobid outpatient. will continue for 2 more days. -Pt not currently complaining of dysuria, hematuria DVT Prophylaxis -Heparin changed to Lovenox 40 mg SQ Daily FEN -Fluids: no fluids -Electrolytes: Mg 1.9, repleted, BMP in AM -Nutrition: Regular diet Disposition Continue to monitor on Med/Surg Visit type - Emergency Visit Emergency Visit: Yes ED Registration Date: 01/10/18 Care time: The patient presented to the Emergency Department on the above date and was hospitalized for further evaluation of their emergent condition. - New Patient This patient is new to me today: No - Critical Care Critical Care patient: No
--- NOTE | 2018-01-10 12:38 | PN ---
Teaching Attending Note Name of Resident: David Diaz ATTENDING PHYSICIAN STATEMENT I saw and evaluated the patient. I reviewed the resident's note and discussed the case with the resident. I agree with the resident's findings and plan as documented with exceptions below. SUBJECTIVE: Patient seen and examined. Reports worsening low back pain for last 2 days, radiating down left leg associated with tingling/numbness below left knee level. No urinary or bowel symptoms. NO recent trauma, twisting or heavy lifting. OBJECTIVE: Vital Signs Period Temp Pulse Resp BP Sys/Brenner Pulse Ox Last 24 Hr 97.7 F-98.4 F 67-86 16-20 119-133/72-91 97-100 Intake & Output 01/07/18 01/08/18 01/09/18 01/10/18 23:59 23:59 23:59 23:59 Intake Total 210 Balance 210 Weight 230 lb General: sitting at edge of bed, in no acute distress Musculoskeletal: inconsistent tendernesss in lumbar region/paraspinal region, patient jumps in pain in minimal palpation of gluteal region but no point tenderness elicited. SLR 20 degrees on LLE, > 50 degrees RLE, sensation reported decreased below left knee , positive grossly normal Left thigh, power 5 /5 at left foot, some limitation from pain there. Extremities: LLE foot edema, positive palpable DP pulses. no erythema or calf tenderness elicited Home Medications Medication Instructions Recorded Cyclobenzaprine HCl 10 mg PO HS 01/09/18 Meloxicam 15 mg PO DAILY 01/09/18 Nitrofurantoin Monohyd/M-Cryst 100 mg PO DAILY 01/10/18 [Macrobid -] Active Medications Cyclobenzaprine HCl (Flexeril -) 10 mg PO [facility] Heparin Sodium (Porcine) (Heparin -) 5,000 unit SQ TID [facility] Last Admin: 01/10/18 06:45 Dose: 5,000 unit Ketorolac Tromethamine (Toradol Injection -) 30 mg IVPUSH Q6H PRN PRN Reason: PAIN LEVEL 7 - 10 Stop: 01/15/18 08:59 Lidocaine (Lidoderm Patch -) 1 patch TP DAILY [facility] Last Admin: 01/10/18 10:16 Dose: 1 patch Methylprednisolone Sodium Succinate (Solu-Medrol -) 40 mg IVPUSH DAILY [facility] Last Admin: 01/10/18 10:16 Dose: 40 mg Miscellaneous (Lidoderm Patch Removal) 1 each MC DAILY@2200 [facility] Morphine Sulfate (Morphine Sulfate) 2 mg IVPUSH Q4H PRN PRN Reason: PAIN LEVEL 7 - 10 Non-Formulary Medication (Meloxicam [Meloxicam]) 15 mg PO DAILY [facility] Non-Formulary Medication (Nitrofurantoin Monohyd/M-Cryst) 100 mg PO DAILY [facility] Laboratory Results - last 24 hr 01/09/18 01/09/18 01/09/18 13:15 13:35 17:10 WBC 7.3 RBC 4.45 Hgb 12.0 Hct 36.2 MCV 81.2 MCH 27.0 MCHC 33.2 RDW 15.9 H Plt Count 268 MPV 8.7 Absolute Neuts (auto) 5.0 Neutrophils % 69.5 Lymphocytes % 23.5 Monocytes % 5.2 Eosinophils % 1.0 Basophils % 0.8 Nucleated RBC % 0 PT with INR 11.50 INR 1.02 Sodium Potassium Chloride Carbon Dioxide Anion Gap BUN Creatinine Creat Clearance w eGFR Random Glucose Calcium Phosphorus Magnesium Total Bilirubin AST ALT Alkaline Phosphatase Total Protein Albumin Urine Color Dk yellow Urine Appearance Slcloudy Urine pH 5.0 Ur Specific [place] 1.020 Urine Protein Negative Urine Glucose (UA) Negative Urine Ketones Negative Urine Blood Negative Urine Nitrite Negative Urine Bilirubin Negative Urine Urobilinogen 2.0 H Ur Leukocyte Esterase Trace Urine WBC (Auto) 27 Urine RBC (Auto) 8 Ur Epithelial Cells Moderate Urine Mucus Many Urine HCG, Qual Negative Blood Type Antibody Screen 01/09/18 01/09/18 01/10/18 17:10 17:10 06:20 WBC 7.7 RBC 4.54 Hgb 12.0 Hct 36.8 MCV 81.2 MCH 26.5 MCHC 32.7 RDW 16.2 H Plt Count 259 MPV 8.4 Absolute Neuts (auto) 4.5 Neutrophils % 59.2 Lymphocytes % 31.0 D Monocytes % 7.7 Eosinophils % 1.4 Basophils % 0.7 Nucleated RBC % 0 PT with INR INR Sodium 140 Potassium 4.1 Chloride 109 H Carbon Dioxide 25 Anion Gap 6 L BUN 8 Creatinine 0.6 Creat Clearance w eGFR > 60 Random Glucose 93 Calcium 8.6 Phosphorus Magnesium Total Bilirubin 0.3 AST 16 ALT 21 Alkaline Phosphatase 74 Total Protein 6.4 Albumin 3.5 Urine Color Urine Appearance Urine pH Ur Specific [place] Urine Protein Urine Glucose (UA) Urine Ketones Urine Blood Urine Nitrite Urine Bilirubin Urine Urobilinogen Ur Leukocyte Esterase Urine WBC (Auto) Urine RBC (Auto) Ur Epithelial Cells Urine Mucus Urine HCG, Qual Blood Type A POSITIVE Antibody Screen Negative 01/10/18 06:20 WBC RBC Hgb Hct MCV MCH MCHC RDW Plt Count MPV Absolute Neuts (auto) Neutrophils % Lymphocytes % Monocytes % Eosinophils % Basophils % Nucleated RBC % PT with INR INR Sodium 139 Potassium 3.9 Chloride 106 Carbon Dioxide 27 Anion Gap 6 L BUN 8 Creatinine 0.5 L Creat Clearance w eGFR > 60 Random Glucose 95 Calcium 8.7 Phosphorus 3.4 Magnesium 1.9 Total Bilirubin 0.3 AST 16 ALT 20 Alkaline Phosphatase 73 Total Protein 6.4 Albumin 3.5 Urine Color Urine Appearance Urine pH Ur Specific [place] Urine Protein Urine Glucose (UA) Urine Ketones Urine Blood Urine Nitrite Urine Bilirubin Urine Urobilinogen Ur Leukocyte Esterase Urine WBC (Auto) Urine RBC (Auto) Ur Epithelial Cells Urine Mucus Urine HCG, Qual Blood Type Antibody Screen Lumbar MRI results noted ASSESSMENT AND PLAN: 47 yof with PMhx of chronic back pain, Lumbar disc disease (reportedly since injury in 04/2016), followed by Dr. Nelson (spine), and Dr Thomas (pain management) comes with worsening back pain and lumbar radiculopathy for last 2 days. -Acute on chronic low back pain with lumbar radiculopathy -LLE edema, r/o DVT, ?Dependent edema from decreased mobility -Obesity -Recent UTI Plan: Lumbar MRI results noted. Orthopedic spine consult with Dr. Nelson, pain consult with Dr. Thomas. Increase flexeril to 10 mg BID, add tylenol prn. Toradol/morphine prn for pain. SOlumedrl 40 mg IV daily. Add PO regimen in 24 hours based on symptoms and spine input. Add PO in 24 hours Add colace/senna. LLE duplex. PT eval. Continue macrobid at 100 mg BID for additional 3 days. Weight loss counselng. DVTPPX with lovenox Dispo pending resolution of medical concerns. Plan discussed with patient in detail, all questions answered.
[2018-01-10] MEDS ORDERED: PT OWN MED DRAWER 7, Y5N ONE ×3 (14:02→22:50)
[2018-01-10] MEDS: CYCLOBENZAPRINE HCL 10 MG TABLET (FP) PO SCH ×2 (14:04→21:11)
[2018-01-10] MEDS: DOCUSATE SODIUM 100 MG CAPSULE (FP) PO SCH ×2 (14:04→21:11)
[2018-01-10] MEDS: MORPHINE SULFATE 2 MG/ML VIAL IVPUSH PRN ×2 (16:55→21:06)
[2018-01-10] MEDS: NITROFURANTOIN MACROCRYSTAL 50 MG CAPSULE (FP) PO SCH ×3 (16:56→23:12)
[2018-01-10] MEDS ORDERED: MAGNESIUM OXIDE 400 MG TABLET (FP) PO ONE (17:45)
--- NOTE | 2018-01-10 20:14 | CONSULT ---
Consult Consult Specialty:: pain medicine Referred by:: hospitalist Reason for Consultation:: back pain - History of Present Illness Chief Complaint: back pain History of Present Illness: 47 y/o Female with a PMHx of Chronic lower back pain (due to a work injury in ) presents with increased Lower back pain. Currently the pain is located in the lower back and left leg. Pain is associated with numbness and weakness in the left leg. Pain score 10/10 when standing and walking. PAST MEDICAL HISTORY: Chronic back pain 2/2 work injury (04/29) Multiple disc herniations (L2-L5) 3 epidural injections PAST SURGICAL HISTORY: X1 [place] Removal Cholecytectomy - Past Medical History ...LMP: 12/29/17 ...: No - Alcohol/Substance Use Hx Alcohol Use: Yes - Smoking History Smoking history: Current every day smoker Have you smoked in the past 12 months: Yes Aproximately how many cigarettes per day: 5 Home Medications - Allergies Allergies/Adverse Reactions: Allergies Allergy/AdvReac Type Severity Reaction Status Date / Time No Known Allergies Allergy Verified 01/09/18 12:47 - Home Medications Home Medications: Ambulatory Orders Cyclobenzaprine HCl 10 mg PO HS 01/09/18 Meloxicam 15 mg PO AM 01/09/18 Medroxyprogesterone Acetate 10 mg PO DAILY 01/10/18 Nitrofurantoin Monohyd/M-Cryst [Macrobid -] 100 mg PO BID 01/10/18 Oxycodone HCl/Acetaminophen [Oxycodone-Acetaminophen 5-325] 1 each PO Q6H Physical Exam Vital Signs: Vital Signs Temperature 97.8 F 01/10/18 14:18 Pulse Rate 72 01/10/18 18:00 Respiratory Rate 20 01/10/18 18:00 Blood Pressure 123/71 01/10/18 18:00 O2 Sat by Pulse Oximetry (%) 100 01/10/18 10:00 Musculoskeletal: Yes: Back Pain Labs: CBC, BMP 01/10/18 06:20 01/10/18 06:20 Assessment/Plan Lumbar radiculopathy with active numbness and weakness 1. Spine surgery eval 2. Neurology eval 3. Continue morphine prn pain 4. Add gabapentin 300mg PO Q12h
[2018-01-10] MEDS ORDERED: MELATONIN 5 MG TABLETS PO ONE (20:39)
[2018-01-10] MEDS: LIDOCAINE PATCH REMOVAL MC SCH (21:10)
[2018-01-10] MEDS: SENNOSIDES 8.6MG TABLET (FP) PO SCH (21:11)
[2018-01-10] MEDS ORDERED: CYCLOBENZAPRINE HCL 10 MG TABLET (FP) PO SCH (22:00)
[2018-01-11] MEDS: MORPHINE SULFATE 2 MG/ML VIAL IVPUSH PRN ×2 (01:08→06:26)
[2018-01-11] MEDS: NITROFURANTOIN MACROCRYSTAL 50 MG CAPSULE (FP) PO SCH ×4 (06:26→23:16)
[2018-01-11] MEDS ORDERED: PT OWN MED DRAWER 7, Y5N ONE ×2 (06:46→10:21)
--- NOTE | 2018-01-11 08:01 | PN ---
Teaching Attending Note Name of Resident: David Diaz ATTENDING PHYSICIAN STATEMENT I saw and evaluated the patient. I reviewed the resident's note and discussed the case with the resident. I agree with the resident's findings and plan as documented with exceptions below. SUBJECTIVE: Patient seen and examined. still with unchanged pain and back/leg symptoms. no new concerns otherwise. OBJECTIVE: Vital Signs Period Temp Pulse Resp BP Sys/Brenner Pulse Ox Last 24 Hr 97.7 F-98.3 F 67-77 20-20 123-149/69-84 100-100 Intake & Output 01/08/18 01/09/18 01/10/18 01/11/18 23:59 23:59 23:59 23:59 Intake Total 865 Balance 865 Weight 230 lb 230 lb General: sitting at edge of bed, in no acute distress, but pain when attempts to move Musculoskeletal: inconsistent tendernesss in lumbar region/left paraspinal region, patient jumps in pain in minimal palpation of left gluteal region but no point tenderness elicited. SLR 20 degrees on LLE, > 50 degrees RLE, sensation reported decreased below left knee , positive grossly normal Left thigh, power 5/5 at left foot, some limitation from pain there Extremities: left foot edema unchanged overall Active Medications Cyclobenzaprine HCl (Flexeril -) 10 mg PO BID [facility] Last Admin: 01/10/18 21:11 Dose: 10 mg Docusate Sodium (Colace -) 100 mg PO BID [facility] Last Admin: 01/10/18 21:11 Dose: 100 mg Enoxaparin Sodium (Lovenox -) 40 mg SQ DAILY [facility] Gabapentin (Neurontin -) 300 mg PO BID [facility] Ketorolac Tromethamine (Toradol Injection -) 30 mg IVPUSH Q6H PRN PRN Reason: PAIN LEVEL 6-10 Stop: 01/15/18 08:59 Lidocaine (Lidoderm Patch -) 1 patch TP DAILY [facility] Last Admin: 01/10/18 10:16 Dose: 1 patch Methylprednisolone Sodium Succinate (Solu-Medrol -) 40 mg IVPUSH DAILY [facility] Last Admin: 01/10/18 10:16 Dose: 40 mg Miscellaneous (Lidoderm Patch Removal) 1 each [facility] DAILY@2200 [facility] Last Admin: 01/10/18 21:10 Dose: 1 each Morphine Sulfate (Morphine Sulfate) 2 mg IVPUSH Q4H PRN PRN Reason: PAIN LEVEL 7 - 10 Last Admin: 01/11/18 06:26 Dose: 2 mg Nitrofurantoin Macrocrystals (Macrodantin -) 50 mg PO Q6HPO SANDRA Stop: 01/13/18 13:59 Last Admin: 01/11/18 06:26 Dose: 50 mg Pantoprazole Sodium (Protonix -) 40 mg PO DAILY [facility] Senna (Senna -) 2 tab PO HS [facility] Last Admin: 01/10/18 21:11 Dose: 2 tab Laboratory Results - last 24 hr 01/09/18 01/11/18 18:45 06:10 Sodium 140 Potassium 4.0 Chloride 107 Carbon Dioxide 26 Anion Gap 7 L BUN 11 Creatinine 0.5 L Creat Clearance w eGFR > 60 Random Glucose 101 Calcium 9.2 Blood Type A POSITIVE ASSESSMENT AND PLAN: 47 yof with PMhx of chronic back pain, Lumbar disc disease (reportedly since injury in 04/2016), followed by Dr. Nelson (spine), and Dr Thomas (pain management) comes with worsening back pain and lumbar radiculopathy for last 2 days. -Acute on chronic low back pain with lumbar radiculopathy -LLE edema, r/o DVT, ?Dependent edema from decreased mobility -Obesity -Recent UTI Plan: Lumbar MRI results noted. Pain consult input noted, add gabapentin. Tylenol/flexeril/toradol/morphine/lidocaine patch. SOlumedrl 40 mg IV daily. Add Protonix 40 mg daily. Discussed with Dr. Nelson, not a surgical candidate currently given BMI 38 and high risk unless new neurological concerns warranting urgent surgery. Conservative management. PT eval. LLE duplex neg for DVT. Continue macrobid at for additional 2 days. Weight loss counselng. DVTPPX with lovenox Dispo pending resolution of medical concerns. Plan discussed with patient in detail, all questions answered.
[2018-01-11 08:05] LABS: ANION GAP 7 MMOL/L (8-16); BLOOD UREA NITROGEN 11 mg/dL (7-18); CALCIUM 9.2 mg/dL (8.5-10.1); CHLORIDE 107 mmol/L (98-107); CO2 26 mmol/L (21-32); CREATININE 0.5 mg/dL (0.55-1.02); GLUCOSE,RANDOM 101 mg/dL (74-106); SODIUM 140 mmol/L (136-145)
--- NOTE | 2018-01-11 09:09 | PN ---
Physical Exam: SUBJECTIVE: Patient seen and examined this AM. Pt tearful about continued pain and inability to have surgery. Explained in detail the current plan with pain control and management. Pt expressed understanding. She says her pain is still the same and that she is unable to walk to the bathroom without having severe pain. States she is also unable to sleep due to the pain. OBJECTIVE: Vital Signs Period Temp Pulse Resp BP Sys/Brenner Pulse Ox Last 24 Hr 97.7 F-98.3 F 67-77 20-20 123-149/69-84 100-100 GENERAL: A&O, Tearful obese female in mild distress likely secondary to pain HEAD: Normocephalic, atraumatic. EYES: PERRL, no scleral icterus EARS, NOSE, THROAT: oropharynx clear without exudates. Moist mucous membranes. NECK: supple without lymphadenopathy LUNGS: CTA b/l, no crackles or wheezes HEART: Regular rate and rhythm, normal S1 and S2 without murmur ABDOMEN: Soft, nontender to palpation, normoactive bowel sounds MUSCULOSKELETAL: Tenderness on palpation of back initially in thoracic region, then in lumbar region b/l EXTREMITIES: 2+ pulses, warm, well-perfused. nonpitting edema stable on left ankle and foot NEUROLOGICAL: Cranial nerves II-XII grossly intact. strength exam limited due to pain. decreased sensation on left leg compared to right. PSYCHIATRIC: Cooperative. Good eye contact. Appropriate mood and affect though tearful. SKIN: Warm, dry, no rashes or lesions noted Laboratory Results - last 24 hr 01/09/18 01/11/18 18:45 06:10 Sodium 140 Potassium 4.0 Chloride 107 Carbon Dioxide 26 Anion Gap 7 L BUN 11 Creatinine 0.5 L Creat Clearance w eGFR > 60 Random Glucose 101 Calcium 9.2 Blood Type A POSITIVE Active Medications Generic Name Dose Route Start Last Admin Trade Name Freq PRN Reason Stop Dose Admin Cyclobenzaprine HCl 10 mg 01/10/18 13:00 01/10/18 21:11 Flexeril - PO 10 mg BID SANDRA Administration Docusate Sodium 100 mg 01/10/18 13:00 01/10/18 21:11 Colace - PO 100 mg BID SANDRA Administration Enoxaparin Sodium 40 mg 01/11/18 10:00 Lovenox - SQ DAILY [facility] Gabapentin 300 mg 01/11/18 10:00 Neurontin - PO BID SANDRA Ketorolac Tromethamine 30 mg 01/10/18 12:54 Toradol Injection - IVPUSH 01/15/18 08:59 Q6H PRN PAIN LEVEL 6-10 Lidocaine 1 patch 01/10/18 10:00 01/10/18 10:16 Lidoderm Patch - TP 1 patch DAILY [facility]A Administration Methylprednisolone Sodium Succinate 40 mg 01/10/18 10:00 01/10/18 10:16 Solu-Medrol - IVPUSH 40 mg DAILY [facility]A Administration Miscellaneous 1 each 01/10/18 22:00 01/10/18 21:10 Lidoderm Patch Removal MC 1 each DAILY@2200 SANDRA Administration Morphine Sulfate 2 mg 01/10/18 12:54 01/11/18 06:26 Morphine Sulfate IVPUSH 2 mg Q4H PRN Administration PAIN LEVEL 7 - 10 Nitrofurantoin Macrocrystals 50 mg 01/10/18 14:00 01/11/18 06:26 Macrodantin - PO 01/13/18 13:59 50 mg Q6HPO SANDRA Administration Pantoprazole Sodium 40 mg 01/11/18 10:00 Protonix - PO DAILY SANDRA Senna 2 tab 01/10/18 22:00 01/10/18 21:11 Senna - PO 2 tab HS SANRDA Administration ASSESSMENT/PLAN: 47 yo female with chronic low back pain secondary to spinal stenosis admitted for acute onset of worsening back pain. Pt also currently on therapy for UTI. Acute on Chronic Low back pain with radiculopathy to left leg -Denies any recent trauma or heavy lifting, unsure of etiology of worsening pain at this time -No signs of saddle anesthesia and denies any bladder or bowel incontinence or retention -Swelling of left extremity most likely dependent due to minimal use secondary to pain -Case discussed with Dr. Nelson who knows the patient well Pt with known severe lumbar stenosis and radiculopathy -She is not currently a surgical candidate due to her obesity but bariatric surgery is being considered at this time. -Pain being managed with Toradol 30 mg IV Q6 PRN, Morphine 2 mg IV Q4 PRN, Solumedrol 40 mg IV Daily, Lidocaine patch, warm pack prn. -Pain management consult appreciated: Started Neurontin 300 mg PO BID -Awaiting Orthopedic surgery to see patient and make further recommendations -Physical Therapy working with her daily -She was able to ambulate with walker to door and back but limited due to pain -Will continue to monitor and manage pain with hopes to discharge once controlled UTI -Being treated with macrobid outpatient. will continue for 1 more days. -not currently complaining of dysuria, hematuria DVT Prophylaxis -Lovenox 40 mg SQ Daily FEN -Fluids: no fluids -Electrolytes: No electrolyte abnormalities -Nutrition: Regular diet Disposition Continue to monitor on Med/Surg Visit type - Emergency Visit Emergency Visit: Yes ED Registration Date: 01/10/18 Care time: The patient presented to the Emergency Department on the above date and was hospitalized for further evaluation of their emergent condition. - New Patient This patient is new to me today: No - Critical Care Critical Care patient: No
[2018-01-11] MEDS: GABAPENTIN 300 MG CAPSULE (FP) PO SCH ×2 (10:22→21:01)
[2018-01-11] MEDS: PANTOPRAZOLE 40 MG TABLET (FP) PO SCH (10:22)
[2018-01-11] MEDS: DOCUSATE SODIUM 100 MG CAPSULE (FP) PO SCH ×2 (10:22→21:00)
[2018-01-11] MEDS: CYCLOBENZAPRINE HCL 10 MG TABLET (FP) PO SCH ×2 (10:22→21:01)
[2018-01-11] MEDS: methylPREDNISolone NA SUCC 40 MG/1 ML VIAL IVPUSH SCH (10:23)
[2018-01-11] MEDS: ENOXAPARIN NA (PORCINE) 40 MG/0.4 ML DISP.SYRIN SQ SCH (10:23)
[2018-01-11] MEDS: LIDOCAINE 5% TOPICAL PATCH TP SCH (10:23)
[2018-01-11] MEDS: KETOROLAC TROMETHAMINE 15 MG/ML VIAL IVPUSH PRN ×2 (11:50→18:14)
[2018-01-11] MEDS: LIDOCAINE PATCH REMOVAL MC SCH (21:01)
[2018-01-11] MEDS: SENNOSIDES 8.6MG TABLET (FP) PO SCH (21:01)
[2018-01-12] MEDS: KETOROLAC TROMETHAMINE 15 MG/ML VIAL IVPUSH PRN ×4 (02:05→21:06)
[2018-01-12] MEDS: MORPHINE SULFATE 2 MG/ML VIAL IVPUSH PRN (05:30)
[2018-01-12] MEDS: NITROFURANTOIN MACROCRYSTAL 50 MG CAPSULE (FP) PO SCH ×3 (05:30→17:38)
[2018-01-12] MEDS ORDERED: PT OWN MED DRAWER 7, Y5N ONE (10:03)
[2018-01-12] MEDS: LIDOCAINE 5% TOPICAL PATCH TP SCH (10:04)
[2018-01-12] MEDS: GABAPENTIN 300 MG CAPSULE (FP) PO SCH ×2 (10:05→21:08)
[2018-01-12] MEDS: ENOXAPARIN NA (PORCINE) 40 MG/0.4 ML DISP.SYRIN SQ SCH (10:05)
[2018-01-12] MEDS: DOCUSATE SODIUM 100 MG CAPSULE (FP) PO SCH ×4 (10:05→21:08)
[2018-01-12] MEDS: CYCLOBENZAPRINE HCL 10 MG TABLET (FP) PO SCH ×2 (10:05→21:08)
[2018-01-12] MEDS: PANTOPRAZOLE 40 MG TABLET (FP) PO SCH (10:05)
[2018-01-12] MEDS: methylPREDNISolone NA SUCC 40 MG/1 ML VIAL IVPUSH SCH (11:40)
--- NOTE | 2018-01-12 13:06 | PN ---
Physical Exam: SUBJECTIVE: Patient seen and examined this AM. Pt states she is still having the same pain, but that her swelling is improving. OBJECTIVE: Vital Signs Period Temp Pulse Resp BP Sys/Brenner Pulse Ox Last 24 Hr 97.6 F-98.5 F 70-90 18-21 106-141/48-86 99 GENERAL: A&O, Tearful obese female in mild distress likely secondary to pain HEAD: Normocephalic, atraumatic. EYES: PERRL, no scleral icterus EARS, NOSE, THROAT: oropharynx clear without exudates. Moist mucous membranes. NECK: supple without lymphadenopathy LUNGS: CTA b/l, no crackles or wheezes HEART: Regular rate and rhythm, normal S1 and S2 without murmur ABDOMEN: Soft, nontender to palpation, normoactive bowel sounds MUSCULOSKELETAL: Tenderness on palpation in lumbar region EXTREMITIES: 2+ pulses, warm, well-perfused. nonpitting edema improving on left ankle and foot NEUROLOGICAL: Cranial nerves II-XII grossly intact. strength exam limited due to pain. decreased sensation on left leg compared to right. PSYCHIATRIC: Cooperative. Good eye contact. Appropriate mood and affect though tearful again today SKIN: Warm, dry, no rashes or lesions noted Active Medications Generic Name Dose Route Start Last Admin Trade Name Freq PRN Reason Stop Dose Admin Cyclobenzaprine HCl 10 mg 01/10/18 13:00 01/12/18 10:05 Flexeril - PO 10 mg BID SANDRA Administration Docusate Sodium 100 mg 01/12/18 12:15 01/12/18 12:15 Colace - PO Not Given TID SANDRA Enoxaparin Sodium 40 mg 01/11/18 10:00 01/12/18 10:05 Lovenox - SQ 40 mg DAILY [facility] Administration Gabapentin 300 mg 01/11/18 10:00 01/12/18 10:05 Neurontin - PO 300 mg BID [facility]A Administration Ketorolac Tromethamine 30 mg 01/10/18 12:54 01/12/18 08:36 Toradol Injection - IVPUSH 01/15/18 08:59 30 mg Q6H PRN Administration PAIN LEVEL 6-10 Lidocaine 1 patch 01/10/18 10:00 01/12/18 10:04 Lidoderm Patch - TP 1 patch DAILY [facility] Administration Methylprednisolone Sodium Succinate 40 mg 01/10/18 10:00 01/12/18 11:40 Solu-Medrol - IVPUSH 40 mg DAILY [facility] Administration Miscellaneous 1 each 01/10/18 22:00 01/11/18 21:01 Lidoderm Patch Removal MC 1 each DAILY@2200 SANDRA Administration Morphine Sulfate 2 mg 01/10/18 12:54 01/12/18 05:30 Morphine Sulfate IVPUSH 2 mg Q4H PRN Administration PAIN LEVEL 7 - 10 Nitrofurantoin Macrocrystals 50 mg 01/10/18 14:00 01/12/18 11:57 Macrodantin - PO 01/13/18 13:59 50 mg Q6HPO SANDRA Administration Oxycodone HCl 5 mg 01/12/18 11:53 Roxicodone - PO Q4H PRN PAIN LEVEL 6-10 Pantoprazole Sodium 40 mg 01/11/18 10:00 01/12/18 10:05 Protonix - PO 40 mg DAILY [facility]A Administration Senna 2 tab 01/10/18 22:00 01/11/18 21:01 Senna - PO 2 tab HS SANDRA Administration ASSESSMENT/PLAN: 47 yo female with chronic low back pain secondary to spinal stenosis admitted for acute onset of worsening back pain. Pt also currently on therapy for UTI. Acute on Chronic Low back pain with radiculopathy to left leg -Denies any recent trauma or heavy lifting, unsure of etiology of worsening pain at this time -No signs of saddle anesthesia and denies any bladder or bowel incontinence or retention -Swelling of left extremity most likely dependent due to minimal use secondary to pain, improved -Case discussed with Dr. Nelson who knows the patient well Pt with known severe lumbar stenosis and radiculopathy -She is not currently a surgical candidate due to her obesity but bariatric surgery is being considered at this time. -Pain management consult appreciated: Neurontin 300 mg PO BID -Awaiting Orthopedic surgery to see patient and make further recommendations -Physical Therapy working with her daily -She was able to ambulate with walker to door and back but limited due to pain, had not worked with PT yet this AM -Pain being managed with Toradol 30 mg IV Q6 PRN, Morphine 2 mg IV Q4 PRN, Solumedrol 40 mg IV Daily, Lidocaine patch, warm pack prn. -Started on Oxycodone 5mg PO Q4 PRN 6-10 pain -Increased Colace to TID from BID -Will continue to monitor and manage pain with hopes to discharge once controlled UTI -Being treated with macrobid outpatient. D/C today -not currently complaining of dysuria, hematuria DVT Prophylaxis -Lovenox 40 mg SQ Daily FEN -Fluids: no fluids -Electrolytes: No electrolyte abnormalities -Nutrition: Regular diet Disposition Continue to monitor on Med/Surg Visit type - Emergency Visit Emergency Visit: Yes ED Registration Date: 01/10/18 Care time: The patient presented to the Emergency Department on the above date and was hospitalized for further evaluation of their emergent condition. - New Patient This patient is new to me today: No - Critical Care Critical Care patient: No
[2018-01-12] MEDS: oxyCODONE HCL 5 MG TABLET PO PRN (17:36)
--- NOTE | 2018-01-12 18:15 | PN ---
Teaching Attending Note Name of Resident: David Diaz ATTENDING PHYSICIAN STATEMENT I saw and evaluated the patient. I reviewed the resident's note and discussed the case with the resident. I agree with the resident's findings and plan as documented with exceptions below. SUBJECTIVE: Patient seen and examined. still with unchanged symptoms, tearful that her ambulation has been limited. No new concerns. OBJECTIVE: Vital Signs Period Temp Pulse Resp BP Sys/Brenner Pulse Ox Last 24 Hr 97.6 F-98.5 F 70-90 18-21 109-141/48-86 97-99 Intake & Output 01/09/18 01/10/18 01/11/18 01/12/18 23:59 23:59 23:59 23:59 Intake Total 865 1115 970 Balance 865 1115 970 Weight 230 lb 230 lb General: sitting in bed in no acute distress Musculoskeletal: inconsistent tendernesss in lumbar region/left paraspinal region, patient jumps in pain in minimal palpation of left gluteal region but no point tenderness elicited. SLR 20 degrees on LLE, > 50 degrees RLE, sensation reported decreased below left knee , positive grossly normal Left thigh, power 5/5 at left foot, some limitation from pain there Extremities: left foot edema unchanged overall Active Medications Cyclobenzaprine HCl (Flexeril -) 10 mg PO BID [facility] Last Admin: 01/12/18 10:05 Dose: 10 mg Docusate Sodium (Colace -) 100 mg PO TID [facility] Last Admin: 01/12/18 14:52 Dose: 100 mg Enoxaparin Sodium (Lovenox -) 40 mg SQ DAILY [facility] Last Admin: 01/12/18 10:05 Dose: 40 mg Gabapentin (Neurontin -) 300 mg PO BID [facility] Last Admin: 01/12/18 10:05 Dose: 300 mg Ketorolac Tromethamine (Toradol Injection -) 30 mg IVPUSH Q6H PRN PRN Reason: PAIN LEVEL 6-10 Stop: 01/15/18 08:59 Last Admin: 01/12/18 14:55 Dose: 30 mg Lidocaine (Lidoderm Patch -) 1 patch TP DAILY [facility] Last Admin: 01/12/18 10:04 Dose: 1 patch Methylprednisolone Sodium Succinate (Solu-Medrol -) 40 mg IVPUSH DAILY [facility] Last Admin: 01/12/18 11:40 Dose: 40 mg Miscellaneous (Lidoderm Patch Removal) 1 each MC DAILY@2200 [facility] Last Admin: 01/11/18 21:01 Dose: 1 each Morphine Sulfate (Morphine Sulfate) 2 mg IVPUSH Q4H PRN PRN Reason: PAIN LEVEL 7 - 10 Last Admin: 01/12/18 05:30 Dose: 2 mg Nitrofurantoin Macrocrystals (Macrodantin -) 50 mg PO Q6HPO [facility] Stop: 01/13/18 13:59 Last Admin: 01/12/18 17:38 Dose: 50 mg Oxycodone HCl (Roxicodone -) 5 mg PO Q4H PRN PRN Reason: PAIN LEVEL 6-10 Last Admin: 01/12/18 17:36 Dose: 5 mg Pantoprazole Sodium (Protonix -) 40 mg PO DAILY [facility] Last Admin: 01/12/18 10:05 Dose: 40 mg Senna (Senna -) 2 tab PO HS [facility] Last Admin: 01/11/18 21:01 Dose: 2 tab ASSESSMENT AND PLAN: 47 yof with PMhx of chronic back pain, Lumbar disc disease (reportedly since injury in 04/2016), followed by Dr. Nelson (spine), and Dr Thomas (pain management) comes with worsening back pain and lumbar radiculopathy for last 2 days. -Acute on chronic low back pain with lumbar radiculopathy -LLE edema, r/o DVT, ?Dependent edema from decreased mobility -Obesity -Recent UTI Plan: Lumbar MRI results noted. Continue gabapentin/Tylenol/flexeril/toradol/morphine/lidocaine patch. Add oxycodone prn. Add bowel regimen. SOlumedrl 40 mg IV daily. Protonix [address] daily[address] with Dr. Nelson, not a surgical candidate currently given BMI 38 and high risk unless new neurological concerns warranting urgent surgery. Conservative management. PT eval noted, . LLE duplex neg for DVT. Continue macrobid at for additional 1 day. Weight loss counselng. DVTPPX with lovenox Dispo pending resolution of medical concerns. Plan discussed with patient in detail, all questions answered.
[2018-01-12] MEDS: LIDOCAINE PATCH REMOVAL MC SCH (21:00)
[2018-01-12] MEDS: SENNOSIDES 8.6MG TABLET (FP) PO SCH (21:08)
[2018-01-13] MEDS: oxyCODONE HCL 5 MG TABLET PO PRN ×3 (00:48→23:50)
[2018-01-13] MEDS ORDERED: PT OWN MED DRAWER 7, Y5N ONE ×2 (00:50→10:28)
[2018-01-13] MEDS: NITROFURANTOIN MACROCRYSTAL 50 MG CAPSULE (FP) PO SCH ×3 (00:51→12:20)
[2018-01-13] MEDS: DOCUSATE SODIUM 100 MG CAPSULE (FP) PO SCH ×3 (05:46→21:22)
--- NOTE | 2018-01-13 07:54 | PN ---
Physical Exam: SUBJECTIVE: Patient seen and examined this AM. States she is still in a lot of pain overnight. Patient in better spirits today than in previous days, Currently speaking with her son who is a vp client services currently in [place]. Discussed current status and plan with both the patient and her son via Facetime. OBJECTIVE: Vital Signs Period Temp Pulse Resp BP Sys/Brenner Pulse Ox Last 24 Hr 97.7 F-98.4 F 73-89 18-20 129-146/67-84 97-98 GENERAL: A&O, No acute distress currently HEAD: Normocephalic, atraumatic. EYES: PERRL, no scleral icterus EARS, NOSE, THROAT: oropharynx clear without exudates. Moist mucous membranes. NECK: supple without lymphadenopathy LUNGS: CTA b/l, no crackles or wheezes HEART: Regular rate and rhythm, normal S1 and S2 without murmur ABDOMEN: Soft, nontender to palpation, normoactive bowel sounds MUSCULOSKELETAL: Tenderness on palpation in lumbar region EXTREMITIES: 2+ pulses, warm, well-perfused. nonpitting edema improving on left ankle and foot NEUROLOGICAL: Cranial nerves II-XII grossly intact. strength exam limited due to pain though improving slowly. decreased sensation on left leg compared to right. PSYCHIATRIC: Cooperative. Good eye contact. Appropriate mood and affect today SKIN: Warm, dry, no rashes or lesions noted Active Medications Generic Name Dose Route Start Last Admin Trade Name Freq PRN Reason Stop Dose Admin Cyclobenzaprine HCl 10 mg 01/10/18 13:00 01/12/18 21:08 Flexeril - PO 10 mg BID SANDRA Administration Docusate Sodium 100 mg 01/12/18 12:15 01/13/18 05:46 Colace - PO 100 mg TID SANDRA Administration Enoxaparin Sodium 40 mg 01/11/18 10:00 01/12/18 10:05 Lovenox - SQ 40 mg DAILY SANDRA Administration Gabapentin 300 mg 01/11/18 10:00 01/12/18 21:08 Neurontin - PO 300 mg BID SANDRA Administration Ketorolac Tromethamine 30 mg 01/10/18 12:54 01/12/18 21:06 Toradol Injection - IVPUSH 01/15/18 08:59 30 mg Q6H PRN Administration PAIN LEVEL 6-10 Lidocaine 1 patch 01/10/18 10:00 01/12/18 10:04 Lidoderm Patch - TP 1 patch DAILY SANDRA Administration Methylprednisolone Sodium Succinate 40 mg 01/10/18 10:00 01/12/18 11:40 Solu-Medrol - IVPUSH 40 mg DAILY SANDRA Administration Miscellaneous 1 each 01/10/18 22:00 01/12/18 21:00 Lidoderm Patch Removal MC 1 each DAILY@2200 SANDRA Administration Morphine Sulfate 2 mg 01/10/18 12:54 01/12/18 05:30 Morphine Sulfate IVPUSH 2 mg Q4H PRN Administration PAIN LEVEL 7 - 10 Nitrofurantoin Macrocrystals 50 mg 01/10/18 14:00 01/13/18 05:46 Macrodantin - PO 01/13/18 13:59 50 mg Q6HPO SANDRA Administration Oxycodone HCl 5 mg 01/12/18 11:53 01/13/18 00:48 Roxicodone - PO 5 mg Q4H PRN Administration PAIN LEVEL 6-10 Pantoprazole Sodium 40 mg 01/11/18 10:00 01/12/18 10:05 Protonix - PO 40 mg DAILY SANDRA Administration Senna 2 tab 01/10/18 22:00 01/12/18 21:08 Senna - PO 2 tab HS SANDRA Administration ASSESSMENT/PLAN: 47 yo female with chronic low back pain secondary to spinal stenosis admitted for acute onset of worsening back pain. Pt also currently on therapy for UTI. Acute on Chronic Low back pain with radiculopathy to left leg -Denies any recent trauma or heavy lifting, unsure of etiology of worsening pain at this time -No signs of saddle anesthesia and denies any bladder or bowel incontinence or retention -Swelling of left extremity most likely dependent due to minimal use secondary to pain, improved -Case discussed with Dr. Nelson who knows the patient well Pt with known severe lumbar stenosis and radiculopathy -She is not currently a surgical candidate due to her obesity. -Pain management consult appreciated: Neurontin 300 mg PO BID increased to TID -Awaiting Orthopedic surgery to see patient and make further recommendations -Physical Therapy working with her daily, slowly improving -Pain being managed with Toradol 30 mg IV Q6 PRN, Morphine 2 mg IV Q4 PRN, Solumedrol 40 mg IV Daily, Lidocaine patch, warm pack prn. -Pt is refusing morphine for pain, says she does not want narcotics as much as they are not helping her pain -Started on Oxycodone 5mg PO Q4 PRN 6-10 pain yesterday with attempt to decrease IV narcotics -Colace TID -Miralax Daily PRN if continued constipation, though pt starting to require less opioids -Will continue to monitor and manage pain with hopes to discharge once controlled UTI -Completed treatment with macrobid -not currently complaining of dysuria, hematuria DVT Prophylaxis -Lovenox 40 mg SQ Daily FEN -Fluids: no fluids -Electrolytes: No electrolyte abnormalities -Nutrition: Regular diet Disposition Continue to monitor on Med/Surg Visit type - Emergency Visit Emergency Visit: Yes ED Registration Date: 01/10/18 Care time: The patient presented to the Emergency Department on the above date and was hospitalized for further evaluation of their emergent condition. - New Patient This patient is new to me today: No - Critical Care Critical Care patient: No
--- NOTE | 2018-01-13 08:33 | PN ---
Teaching Attending Note Name of Resident: David Diaz ATTENDING PHYSICIAN STATEMENT I saw and evaluated the patient. I reviewed the resident's note and discussed the case with the resident. I agree with the resident's findings and plan as documented with exceptions below. SUBJECTIVE: Patient seen and examined, Leg symptoms improved, able to walk to door with PT. Reports 'spasms' in the groin region, requesting if her 'nerve medicine' can be increased to 3 times daily. Overall motivated to get better. OBJECTIVE: Vital Signs Period Temp Pulse Resp BP Sys/Brenner Pulse Ox Last 24 Hr 97.7 F-98.4 F 73-89 18-20 129-146/67-80 97-98 Intake & Output 01/10/18 01/11/18 01/12/18 01/13/18 23:59 23:59 23:59 23:59 Intake Total 865 1115 970 Balance 865 1115 970 Weight 230 lb General: sitting in bed in no acute distress Musculoskeletal: improved tenderness in lumbar/left paraspinal region, Left leg raising improved, improved sensory exam left leg, left foot swelling almost resolved Active Medications Cyclobenzaprine HCl (Flexeril -) 10 mg PO TID [facility] Docusate Sodium (Colace -) 100 mg PO TID [facility] Last Admin: 01/13/18 05:46 Dose: 100 mg Enoxaparin Sodium (Lovenox -) 40 mg SQ DAILY [facility] Last Admin: 01/12/18 10:05 Dose: 40 mg Gabapentin (Neurontin -) 300 mg PO TID [facility] Ketorolac Tromethamine (Toradol Injection -) 30 mg IVPUSH Q6H PRN PRN Reason: PAIN LEVEL 6-10 Stop: 01/15/18 08:59 Last Admin: 01/12/18 21:06 Dose: 30 mg Lidocaine (Lidoderm Patch -) 1 patch TP DAILY [facility] Last Admin: 01/12/18 10:04 Dose: 1 patch Methylprednisolone Sodium Succinate (Solu-Medrol -) 40 mg IVPUSH DAILY [facility] Last Admin: 01/12/18 11:40 Dose: 40 mg Miscellaneous (Lidoderm Patch Removal) 1 each MC DAILY@2200 [facility] Last Admin: 01/12/18 21:00 Dose: 1 each Morphine Sulfate (Morphine Sulfate) 2 mg IVPUSH Q4H PRN PRN Reason: PAIN LEVEL 7 - 10 Last Admin: 01/12/18 05:30 Dose: 2 mg Nitrofurantoin Macrocrystals (Macrodantin -) 50 mg PO Q6HPO [facility] Stop: 01/13/18 13:59 Last Admin: 01/13/18 05:46 Dose: 50 mg Oxycodone HCl (Roxicodone -) 5 mg PO Q4H PRN PRN Reason: PAIN LEVEL 6-10 Last Admin: 01/13/18 00:48 Dose: 5 mg Pantoprazole Sodium (Protonix -) 40 mg PO DAILY [facility] Last Admin: 01/12/18 10:05 Dose: 40 mg Senna (Senna -) 2 tab PO HS [facility] Last Admin: 01/12/18 21:08 Dose: 2 tab ASSESSMENT AND PLAN: 47 yof with PMhx of chronic back pain, Lumbar disc disease (reportedly since injury in 04/2016), followed by Dr. Nelson (spine), and Dr Thomas (pain management) comes with worsening back pain and lumbar radiculopathy for last 2 days. -Acute on chronic low back pain with lumbar radiculopathy -LLE edema,likely Dependent edema from decreased mobility -Obesity -Recent UTI Plan: Lumbar MRI results noted. Continue Tylenol//toradol/lidocaine patch. Oxycodone prn. D/c morphine. Increase gabapentin to 300 mg TID and flexeril to 10 mg TID. Bowel regimen. SOlumedrl 40 mg IV daily. Protonix 40 mg daily. Discussed with Dr. Nelson, not a surgical candidate currently given BMI 38 and high risk unless new neurological concerns warranting urgent surgery. Conservative management. PT eval noted, Continue to work with PT. . LLE duplex neg for DVT. Continue macrobid last day today Weight loss counselng. DVTPPX with lovenox Dispo plan for home with PT in 2-3 days if continues to improve. Plan discussed with patient in detail, all questions answered.
[2018-01-13] MEDS: methylPREDNISolone NA SUCC 40 MG/1 ML VIAL IVPUSH SCH (09:12)
[2018-01-13] MEDS: ENOXAPARIN NA (PORCINE) 40 MG/0.4 ML DISP.SYRIN SQ SCH (10:45)
[2018-01-13] MEDS: LIDOCAINE 5% TOPICAL PATCH TP SCH (10:45)
[2018-01-13] MEDS: PANTOPRAZOLE 40 MG TABLET (FP) PO SCH (10:45)
[2018-01-13] MEDS: GABAPENTIN 300 MG CAPSULE (FP) PO SCH ×2 (14:02→21:23)
[2018-01-13] MEDS: CYCLOBENZAPRINE HCL 10 MG TABLET (FP) PO SCH ×2 (14:03→21:22)
[2018-01-13] MEDS: POLYETHYLENE GLYCOL 3350 119 GM BTL PO PRN ×2 (16:06→21:23)
[2018-01-13] MEDS: SENNOSIDES 8.6MG TABLET (FP) PO SCH (21:23)
[2018-01-13] MEDS: LIDOCAINE PATCH REMOVAL MC SCH (21:23)
[2018-01-14] MEDS: CYCLOBENZAPRINE HCL 10 MG TABLET (FP) PO SCH ×2 (07:00→13:57)
[2018-01-14] MEDS: GABAPENTIN 300 MG CAPSULE (FP) PO SCH ×3 (07:00→22:19)
[2018-01-14] MEDS: DOCUSATE SODIUM 100 MG CAPSULE (FP) PO SCH ×3 (07:00→22:19)
[2018-01-14] MEDS: oxyCODONE HCL 5 MG TABLET PO PRN (07:03)
[2018-01-14] MEDS: methylPREDNISolone NA SUCC 40 MG/1 ML VIAL IVPUSH SCH (09:28)
[2018-01-14] MEDS: PANTOPRAZOLE 40 MG TABLET (FP) PO SCH ×2 (09:28→22:19)
[2018-01-14] MEDS: LIDOCAINE 5% TOPICAL PATCH TP SCH (09:28)
[2018-01-14] MEDS: ENOXAPARIN NA (PORCINE) 40 MG/0.4 ML DISP.SYRIN SQ SCH (09:28)
[2018-01-14] MEDS: KETOROLAC TROMETHAMINE 15 MG/ML VIAL IVPUSH PRN (10:55)
--- NOTE | 2018-01-14 15:28 | PN ---
Physical Exam: SUBJECTIVE: Patient seen and examined, intermittently tearful, still with sharp pain radiating down left leg, with muscle spasms, motivated to work with PT OBJECTIVE: Vital Signs Period Temp Pulse Resp BP Sys/Brenner Pulse Ox Last 24 Hr 97.4 F-98.9 F 78-87 20-20 115-154/55-99 98-98 GENERAL: The patient is awake, alert, and fully oriented, in no acute distress, intermittently tearful about the pain. . HEAD: Normal with no signs of trauma. EYES: PERRL, extraocular movements intact, sclera anicteric, conjunctiva clear. No ptosis. ENT: Ears normal, nares patent, oropharynx clear without exudates, moist mucous membranes. NECK: Soft, supple LUNGS: Breath sounds equal, clear to auscultation bilaterally, no wheezes, no crackles, no accessory muscle use. HEART: S1S2 regular ABDOMEN: Soft, obese, nontender, nondistended, normoactive bowel sounds, no guarding, no rebound, EXTREMITIES: 2+ pulses, warm, well-perfused, minimal left foot edema Musculoskeletal: improved tenderness in lumbar/left paraspinal region, Left leg raising improved, improved sensory exam left leg, left foot swelling almost resolved NEUROLOGICAL: Cranial nerves II through XII grossly intact. Normal speech, gait not observed. PSYCH: Normal mood, normal affect. SKIN: Warm, dry, normal turgor, no rashes or lesions noted Active Medications Generic Name Dose Route Start Last Admin Trade Name Freq PRN Reason Stop Dose Admin Cyclobenzaprine HCl 10 mg 01/13/18 14:00 01/14/18 13:57 Flexeril - PO 10 mg TID SANDRA Administration Docusate Sodium 100 mg 01/12/18 12:15 01/14/18 13:57 Colace - PO 100 mg TID SANDRA Administration Enoxaparin Sodium 40 mg 01/11/18 10:00 01/14/18 09:28 Lovenox - SQ 40 mg DAILY SANDRA Administration Gabapentin 300 mg 01/13/18 14:00 01/14/18 13:57 Neurontin - PO 300 mg TID SANDRA Administration Ketorolac Tromethamine 30 mg 01/10/18 12:54 01/14/18 10:55 Toradol Injection - IVPUSH 01/15/18 08:59 30 mg Q6H PRN Administration PAIN LEVEL 6-10 Lidocaine 1 patch 01/10/18 10:00 01/14/18 09:28 Lidoderm Patch - TP 1 patch DAILY SANDRA Administration Methylprednisolone Sodium Succinate 40 mg 01/10/18 10:00 01/14/18 09:28 Solu-Medrol - IVPUSH 40 mg DAILY SANDRA Administration Miscellaneous 1 each 01/10/18 22:00 01/13/18 21:23 Lidoderm Patch Removal MC 1 each DAILY@2200 SANDRA Administration Oxycodone HCl 5 mg 01/12/18 11:53 01/14/18 07:03 Roxicodone - PO 5 mg Q4H PRN Administration PAIN LEVEL 6-10 Pantoprazole Sodium 40 mg 01/11/18 10:00 01/14/18 09:28 Protonix - PO 40 mg DAILY SANDRA Administration Polyethylene Glycol 17 gm 01/13/18 10:08 01/13/18 21:23 Miralax (For Daily Use) - PO 17 gm DAILY PRN Administration CONSTIPATION Senna 2 tab 01/10/18 22:00 01/13/18 21:23 Senna - PO 2 tab HS SANDRA Administration ASSESSMENT/PLAN: 47 yof with PMhx of chronic back pain, Lumbar disc disease (reportedly since injury in 04/2016), followed by Dr. Nelson (spine), and Dr Thomas (pain management) comes with worsening back pain and lumbar radiculopathy for last 2 days. -Acute on chronic low back pain with lumbar radiculopathy -LLE edema,likely Dependent edema from decreased mobility -Obesity -Recent UTI Plan: Lumbar MRI results noted. Still with significant shooting pain/muscle spasms D/c flexeril. Baclofen 10 mg TID. Dc toradol. Trial with standing ibuprofen 600 mg q6h x 1 day, increase protonix to 40 mg BID. NO real improvement with solumedrol, today 5th dose. Dc steroids and monitor for n ow. Continue Tylenol/lidocaine patch. Oxycodone prn. Gabapentin 300 mg TID. Bowel regimen. Discussed with Dr. Nelson, not a surgical candidate currently given BMI 38 and high risk unless new neurological concerns warranting urgent surgery. Conservative management. PT eval noted, Continue with daily PT (stressed with nursing) . LLE duplex neg for DVT. s/p 7 days of macrobid. Weight loss counselng. DVTPPX with lovenox Dispo plan for home with PT in 2-3 days if continues to improve. Plan discussed with patient and nursing in detail, all questions answered. Visit type - Emergency Visit Emergency Visit: Yes ED Registration Date: 01/10/18 Care time: The patient presented to the Emergency Department on the above date and was hospitalized for further evaluation of their emergent condition. - New Patient This patient is new to me today: No - Critical Care Critical Care patient: No - Discharge Referral Referred to [facility] Med [facility] No
[2018-01-14] MEDS: IBUPROFEN 800 MG/8 ML IJ IVPB SCH ×2 (17:36→22:17)
[2018-01-14] MEDS: BACLOFEN 10 MG TABLET (FP) PO SCH (22:19)
[2018-01-14] MEDS: LIDOCAINE PATCH REMOVAL MC SCH (22:19)
[2018-01-14] MEDS: SENNOSIDES 8.6MG TABLET (FP) PO SCH (22:19)
[2018-01-14] MEDS: POLYETHYLENE GLYCOL 3350 119 GM BTL PO PRN (22:22)
[2018-01-15] MEDS: oxyCODONE HCL 5 MG TABLET PO PRN ×3 (02:27→18:39)
[2018-01-15] MEDS: IBUPROFEN 800 MG/8 ML IJ IVPB SCH ×4 (03:12→22:08)
[2018-01-15] MEDS: GABAPENTIN 300 MG CAPSULE (FP) PO SCH ×3 (06:39→22:09)
[2018-01-15] MEDS: BACLOFEN 10 MG TABLET (FP) PO SCH ×3 (06:39→22:09)
[2018-01-15] MEDS: DOCUSATE SODIUM 100 MG CAPSULE (FP) PO SCH ×3 (06:39→22:09)
[2018-01-15] MEDS: PANTOPRAZOLE 40 MG TABLET (FP) PO SCH ×2 (09:47→22:09)
[2018-01-15] MEDS: LIDOCAINE 5% TOPICAL PATCH TP SCH (09:47)
[2018-01-15] MEDS: ENOXAPARIN NA (PORCINE) 40 MG/0.4 ML DISP.SYRIN SQ SCH (09:48)
--- NOTE | 2018-01-15 10:09 | PN ---
Physical Exam: SUBJECTIVE: Patient seen and examined by me at bedside. Patient tearful and reports having back pain not improving with medication. States when she takes the Ibuprofen, she has some relief but within an hour requires more medications. She states shooting pains from her back to the left leg. She is however able to bare weight and walk. Otherwise, patient denies any urinary or bowel incontinence or retention, fever, chills, nausea, vomiting, abdominal pain , chest pain, palpitations, shortness of breath. OBJECTIVE: Vital Signs Period Temp Pulse Resp BP Sys/Brenner Pulse Ox Last 24 Hr 98.1 F-98.9 F 83-96 20-20 112-139/67-89 GENERAL: The patient is awake, alert, and fully oriented, in moderate painful distress and tearful EYES: Sclera anicteric, conjunctiva clear. No ptosis. LUNGS: CTA bilaterally, no wheezes, no crackles, no accessory muscle use. HEART: RRR, No M/R/G ABDOMEN: Soft, obese, nontender, nondistended, normoactive bowel sounds EXTREMITIES: No edema. Tenderness in lumbar/left paraspinal region upon palpation, Pain elicited on Left leg raising NEUROLOGICAL: Cranial nerves II through XII grossly intact. Normal speech Active Medications Generic Name Dose Route Start Last Admin Trade Name Freq PRN Reason Stop Dose Admin Baclofen 10 mg 01/14/18 22:00 01/15/18 06:39 Lioresal - PO 10 mg TID SANDRA Administration Docusate Sodium 100 mg 01/12/18 12:15 01/15/18 06:39 Colace - PO 100 mg TID SADNRA Administration Enoxaparin Sodium 40 mg 01/11/18 10:00 01/15/18 09:48 Lovenox - SQ 40 mg DAILY SANDRA Administration Gabapentin 300 mg 01/13/18 14:00 01/15/18 06:39 Neurontin - PO 300 mg TID SANDRA Administration Ibuprofen 600 mg 01/14/18 15:45 01/15/18 09:47 Caldolor Injection - IVPB 01/15/18 15:44 600 mg Q6H SANDRA Administration Lidocaine 1 patch 01/10/18 10:00 01/15/18 09:47 Lidoderm Patch - TP 1 patch DAILY SANDRA Administration Miscellaneous 1 each 01/10/18 22:00 01/14/18 22:19 Lidoderm Patch Removal MC 1 each DAILY@2200 SANDRA Administration Oxycodone HCl 5 mg 01/12/18 11:53 01/15/18 07:09 Roxicodone - PO 5 mg Q4H PRN Administration PAIN LEVEL 6-10 Pantoprazole Sodium 40 mg 01/14/18 22:00 01/15/18 09:47 Protonix - PO 40 mg BID SANDRA Administration Polyethylene Glycol 17 gm 01/13/18 10:08 01/14/18 22:22 Miralax (For Daily Use) - PO 17 gm DAILY PRN Administration CONSTIPATION Senna 2 tab 01/10/18 22:00 01/14/18 22:19 Senna - PO 2 tab HS SANDRA Administration ASSESSMENT/PLAN: Patient is a 47 year old female with chronic low back pain secondary to spinal stenosis admitted for acute onset of worsening back pain. Patient admitted to Med/Surg for further monitoring and management. Acute on Chronic Low back pain with radiculopathy to left leg -No signs of saddle anesthesia and denies any bladder or bowel incontinence or retention -Swelling of left extremity most likely dependent due to minimal use secondary to pain, improved -Case discussed with Dr. Nelson who knows the patient well. Pt with known severe lumbar stenosis and radiculopathy -She is not currently a surgical candidate due to her obesity. -Continue Neurontin 300 mg PO TID, Baclofen 10 mg TID, Lidocaine patch, warm pack prn, Oxycodone prn. -Physical Therapy working with her daily, slowly improving -Colace, senna and Miralax Daily PRN if continued constipation, though pt starting to require less opioids -Will continue to monitor and manage pain with hopes to discharge once controlled UTI -Completed treatment with macrobid -not currently complaining of dysuria, hematuria DVT Prophylaxis -Lovenox 40 mg SQ Daily FEN -Fluids: no fluids -Electrolytes: No electrolyte abnormalities -Nutrition: Regular diet Disposition Continue to monitor on Med/Surg Case Discussed with Attending, Dr. Zeng. Tish Ospina [id number] Visit type - Emergency Visit Emergency Visit: Yes ED Registration Date: 01/10/18 Care time: The patient presented to the Emergency Department on the above date and was hospitalized for further evaluation of their emergent condition. - New Patient This patient is new to me today: Yes Date on this admission: 01/15/18 - Critical Care Critical Care patient: No
[2018-01-15] MEDS: POLYETHYLENE GLYCOL 3350 119 GM BTL PO PRN (13:09)
--- NOTE | 2018-01-15 13:36 | PN ---
Teaching Attending Note Name of Resident: Tish Ospina ATTENDING PHYSICIAN STATEMENT I saw and evaluated the patient. I reviewed the resident's note and discussed the case with the resident. I agree with the resident's findings and plan as documented with exceptions below. SUBJECTIVE: Patient seen and examined, overall better than admission, was able to walk to the bathroom, still with intermittent sharp pains when medications wear off. OBJECTIVE: Vital Signs Period Temp Pulse Resp BP Sys/Brenner Pulse Ox Last 24 Hr 98.1 F-98.9 F 83-96 20-20 112-139/67-89 Intake & Output 01/12/18 01/13/18 01/14/18 01/15/18 23:59 23:59 23:59 23:59 Intake Total 970 1580 970 350 Balance 970 1580 970 350 General: ambulating back from bathroom, no acute distress Active Medications Baclofen (Lioresal -) 10 mg PO TID COUNTS INCLUDE 234 BEDS AT THE [facility] Last Admin: 01/15/18 13:09 Dose: 10 mg Docusate Sodium (Colace -) 100 mg PO TID COUNTS INCLUDE 234 BEDS AT THE [facility] Last Admin: 01/15/18 13:09 Dose: 100 mg Enoxaparin Sodium (Lovenox -) 40 mg SQ DAILY COUNTS INCLUDE 234 BEDS AT THE [facility] Last Admin: 01/15/18 09:48 Dose: 40 mg Gabapentin (Neurontin -) 300 mg PO TID COUNTS INCLUDE 234 BEDS AT THE [facility] Last Admin: 01/15/18 13:09 Dose: 300 mg Ibuprofen (Caldolor Injection -) 600 mg IVPB Q6H COUNTS INCLUDE 234 BEDS AT THE [facility] Stop: 01/15/18 15:44 Last Admin: 01/15/18 09:47 Dose: 600 mg Lidocaine (Lidoderm Patch -) 1 patch TP DAILY COUNTS INCLUDE 234 BEDS AT THE [facility] Last Admin: 01/15/18 09:47 Dose: 1 patch Miscellaneous (Lidoderm Patch Removal) 1 each MC DAILY@2200 COUNTS INCLUDE 234 BEDS AT THE [facility] Last Admin: 01/14/18 22:19 Dose: 1 each Pantoprazole Sodium (Protonix -) 40 mg PO BID COUNTS INCLUDE 234 BEDS AT THE [facility] Last Admin: 01/15/18 09:47 Dose: 40 mg Polyethylene Glycol (Miralax (For Daily Use) -) 17 gm PO DAILY PRN PRN Reason: CONSTIPATION Last Admin: 01/15/18 13:09 Dose: 17 gm Senna (Senna -) 2 tab PO HS COUNTS INCLUDE 234 BEDS AT THE [facility] Last Admin: 01/14/18 22:19 Dose: 2 tab ASSESSMENT AND PLAN: 47 yof with PMhx of chronic back pain, Lumbar disc disease (reportedly since injury in 04/2016), followed by Dr. Nelson (spine), and Dr Thomas (pain management) comes with worsening back pain and lumbar radiculopathy for last 2 days. -Acute on chronic low back pain with lumbar radiculopathy -LLE edema,likely Dependent edema from decreased mobility -Obesity -Recent UTI Plan: Lumbar MRI results noted. Overall improved. Standing ibuprofen for additional 24 hours. Baclofen 10 mg TID (started 01/14), continue for now. No real improvement with steroids, d/víctor after 5 days. Continue Tylenol/lidocaine patch. Oxycodone prn. Gabapentin 300 mg TID. Bowel regimen. Discussed with Dr. Nelson, not a surgical candidate currently given BMI 38 and high risk unless new neurological concerns warranting urgent surgery. Conservative management. PT eval noted, Continue with daily PT (stressed with nursing) . LLE duplex neg for DVT. s/p 7 days of macrobid. Weight loss counselng. DVTPPX with lovenox Dispo plan for home with PT in 1-2 days if continues to improve. Plan discussed with patient and nursing in detail, all questions answered.
[2018-01-15] MEDS: SENNOSIDES 8.6MG TABLET (FP) PO SCH (22:09)
[2018-01-15] MEDS: LIDOCAINE PATCH REMOVAL MC SCH (22:10)
[2018-01-16] MEDS: oxyCODONE HCL 5 MG TABLET PO PRN (01:56)
[2018-01-16] MEDS: IBUPROFEN 800 MG/8 ML IJ IVPB SCH ×2 (03:58→09:30)
[2018-01-16] MEDS: DOCUSATE SODIUM 100 MG CAPSULE (FP) PO SCH ×3 (05:48→21:52)
[2018-01-16] MEDS: GABAPENTIN 300 MG CAPSULE (FP) PO SCH ×3 (05:48→21:52)
[2018-01-16] MEDS: BACLOFEN 10 MG TABLET (FP) PO SCH ×3 (05:48→21:52)
[2018-01-16] MEDS: PANTOPRAZOLE 40 MG TABLET (FP) PO SCH ×2 (09:36→21:52)
[2018-01-16] MEDS: ENOXAPARIN NA (PORCINE) 40 MG/0.4 ML DISP.SYRIN SQ SCH (09:36)
[2018-01-16] MEDS: LIDOCAINE 5% TOPICAL PATCH TP SCH (09:36)
[2018-01-16] MEDS: POLYETHYLENE GLYCOL 3350 119 GM BTL PO PRN (09:52)
--- NOTE | 2018-01-16 13:05 | PN ---
Physical Exam: SUBJECTIVE: Patient seen and examined this AM. Pt states walking is improving very slowly and that pain is still severely present but calming down very little each day. Case discussed with Dr. Nelson who will take her to O.R. today. OBJECTIVE: Vital Signs Period Temp Pulse Resp BP Sys/Brenner Pulse Ox Last 24 Hr 97.6 F-98.2 F 75-95 18-19 122-153/60-89 97 GENERAL: A&O, No acute distress currently HEAD: Normocephalic, atraumatic. EYES: PERRL, no scleral icterus EARS, NOSE, THROAT: oropharynx clear without exudates. Moist mucous membranes. NECK: supple without lymphadenopathy LUNGS: CTA b/l, no crackles or wheezes HEART: Regular rate and rhythm, normal S1 and S2 without murmur ABDOMEN: Soft, nontender to palpation, normoactive bowel sounds MUSCULOSKELETAL: Tenderness on palpation in lumbar region EXTREMITIES: 2+ pulses, warm, well-perfused. nonpitting edema improving on left ankle and foot NEUROLOGICAL: Cranial nerves II-XII grossly intact. strength exam limited due to pain. decreased sensation on left leg compared to right. PSYCHIATRIC: Cooperative. Good eye contact. Appropriate mood and affect today SKIN: Warm, dry, no rashes or lesions noted Active Medications Generic Name Dose Route Start Last Admin Trade Name Connerq PRN Reason Stop Dose Admin Baclofen 10 mg 01/14/18 22:00 01/16/18 05:48 Lioresal - PO 10 mg TID SANDRA Administration Docusate Sodium 100 mg 01/12/18 12:15 01/16/18 05:48 Colace - PO 100 mg TID SANDRA Administration Enoxaparin Sodium 40 mg 01/11/18 10:00 01/16/18 09:36 Lovenox - SQ 40 mg DAILY SANDRA Administration Gabapentin 300 mg 01/13/18 14:00 01/16/18 05:48 Neurontin - PO 300 mg TID SANDRA Administration Lidocaine 1 patch 01/10/18 10:00 01/16/18 09:36 Lidoderm Patch - TP 1 patch DAILY SANDRA Administration Miscellaneous 1 each 01/10/18 22:00 01/15/18 22:10 Lidoderm Patch Removal MC 1 each DAILY@2200 SANDRA Administration Oxycodone HCl 5 mg 01/15/18 13:37 01/16/18 01:56 Roxicodone - PO 5 mg Q4H PRN Administration PAIN LEVEL 6-10 Pantoprazole Sodium 40 mg 01/14/18 22:00 01/16/18 09:36 Protonix - PO 40 mg BID SANDRA Administration Polyethylene Glycol 17 gm 01/13/18 10:08 01/16/18 09:52 Miralax (For Daily Use) - PO 17 gm DAILY PRN Administration CONSTIPATION Senna 2 tab 01/10/18 22:00 01/15/18 22:09 Senna - PO 2 tab HS SANDRA Administration ASSESSMENT/PLAN: 47 yo female with chronic low back pain secondary to spinal stenosis admitted for acute onset of worsening back pain. Pt also currently on therapy for UTI. Acute on Chronic Low back pain with radiculopathy to left leg -Denies any recent trauma or heavy lifting, unsure of etiology of worsening pain at this time -No signs of saddle anesthesia and denies any bladder or bowel incontinence or retention -Swelling of left extremity most likely dependent due to minimal use secondary to pain, improved -Pain management consult appreciated: Neurontin 300 mg PO BID increased to TID -Physical Therapy working with her daily, slowly improving -Pain being managed with Oxycodone 5mg PO Q4 PRN, Neurontin as above, Baclofen 10 mg PO TID (can switch to home Cyclobenzaprine post op pending surgery recommendation for muscle relaxant) Lidocaine patch, warm pack prn. -Colace TID -Case discussed again today with Dr. Nelson who knows the patient well Pt with known severe lumbar stenosis and radiculopathy, worse now than before For OR today UTI -Completed treatment with macrobid -not currently complaining of dysuria, hematuria DVT Prophylaxis -Lovenox 40 mg SQ Daily - hold for OR FEN -Fluids: no fluids -Electrolytes: No electrolyte abnormalities -Nutrition: NPO for OR Disposition Continue to monitor on Med/Surg Visit type - Emergency Visit Emergency Visit: Yes ED Registration Date: 01/10/18 Care time: The patient presented to the Emergency Department on the above date and was hospitalized for further evaluation of their emergent condition. - New Patient This patient is new to me today: No - Critical Care Critical Care patient: No
[2018-01-16] MEDS: LIDOCAINE PATCH REMOVAL MC SCH ×2 (13:50→22:02)
--- NOTE | 2018-01-16 15:06 | PN ---
Teaching Attending Note Name of Resident: David Diaz ATTENDING PHYSICIAN STATEMENT I saw and evaluated the patient. I reviewed the resident's note and discussed the case with the resident. I agree with the resident's findings and plan as documented. SUBJECTIVE:states pain has improved while resting but worse when she attempts to get out of bed. also states she does not feel relief with baclofen and having severe muscle spasm especially on movement. denies Cp, SOB< fever, chills , N/V/C/D OBJECTIVE: Last Vital Signs Temp Pulse Resp BP Pulse Ox 98.2 F 80 18 153/89 97 01/16/18 14:33 01/16/18 10:13 01/16/18 10:13 01/16/18 10:13 01/15/18 21:00 General NAD ASSESSMENT AND PLAN: 47 yo F with PMhx of chronic back pain, Lumbar disc disease (reportedly since injury in 04/2016), followed by Dr. Nelson (spine), and Dr Thomas (pain management) comes with worsening back pain and lumbar radiculopathy for last 2 days. 1. Acute on chronic low back pain with lumbar radiculopathy-MRI showing L5-S1/L5 -S1 disc desiccation wiht neural foramen bulge with worsening radicular pain. spoke with orthopedics today who will plan for surgery today. NPO. pt is low risk for intermediate risk procedure. METS >4. further recommendations per ortho. switch baclofen to flexeril as it worked better in the past. will likely require MICU monitoring post-op. 2. LLE edema,likely Dependent edema from decreased mobility- doppler negative for DVT 3. Obesity- BMI 38. states she has had 20 lb intentional weight loss through diet modifications. 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 4. Recent UTI- completed abx treatment 5. DVT ppx- will hold lovenox with pending surgery. 6. pt will likely require MAURICIO on discharge.
[2018-01-16] MEDS ORDERED: morphine SULFATE 4 MG/ML VIAL IVPUSH ONE ×2 (15:41→22:15)
[2018-01-16] MEDS: SENNOSIDES 8.6MG TABLET (FP) PO SCH (21:52)
--- NOTE | 2018-01-17 00:22 | PN ---
Progress Note (short form) - Note Progress Note: Workers Compensation Case Date of Injury: May 03, 2016 MECHANISM OF INJURY: Mechanical fall down broken stairs while at work injuring her low back, both of her knees and her neck 47F admitted due to worsened B/L LE radiculopathy & neurogenic claudication, making it difficult for her to walk. Pt. well known to me. Last seen in my office 12/28/2017, when she was diagnosed with work related posttraumatic: 1. Multilevel lumbar intervertebral disk disorder with associated radiculopathy (L4-L5 & L5-S1) 2. Lumbar spinal stenosis with associated neurogenic claudication 3. Lumbar spondylolisthesis (anterolisthesis) of L4 on L5 Pt. now reports pain worse than before, regardless of position; pain is exacerbated on attempted ambulation, rendering this task impossible. (+) Exacerbation of pain with coughing and sneezing. Pt. denies recent history of chest pain, shortness of breath, nausea, vomiting, chills, sweats. (+) Voiding; (+) Flatus; (+) BM. PMH: Negative. PSH: . Medications: Denies. Allergies: NKDA. Social Hx: (+) 1/2 pack per day cigarette use; Social alcohol consumption on an infrequent occasion; No recreational drug use. All labs & vitals reviewed. PE: AAO x 3, NAD. (+) Morbid obesity. L-Spine: Skin C/D/I. No cutaneous lesions nor vascular malformations. (+) Midline, paraspinal, iliolumbar ligamentous, & posterior iliac crest TTP. B/L LE Motor Exam: All muscles supplying hips, knees, ankles, hindfeet, midfeet, forefeet 5/5; severe functional weakness. B/L LE Sensory Exam: L2-S1 1/2. B/L LE Vascular Exam: Normal arterial supply & venous drainage. Upper Motor Tests & Reflexes: (+) Sciatic stretch & slump tests. Reflexes not assessed. MRI L-Spine: Dessication of L4-L5 & L5-S1 discs with loss of disc height, and severe central and neuroforaminal stenosis L4-S1. A/P: 50F admitted due to acute, painful exacerbation of symptoms associated with post-traumatic, work-related: 1. Multilevel lumbar intervertebral disk disorder with associated radiculopathy (L4-L5 & L5-S1) 2. Lumbar spinal stenosis with associated neurogenic claudication 3. Lumbar spondylolisthesis (anterolisthesis) of L4 on L5 -Pain control. -DVT PPx: -Mechanical: LEOPOLDO's, SCD's. -Chemical: Lovenox. -Incentive spirometry. -PT/OT/Rehab, OOB. -WBAT B/L LE. -Will plan for surgical decompression and instrumented fusion L4-S1 over the next few days, during this admission. This will be coordinated with the primary medical team. -Care per primary team. -Will follow. Gage Nelson MD (Orthopaedic Surgery).
[2018-01-17] MEDS: oxyCODONE HCL 5 MG TABLET PO PRN ×4 (00:59→21:26)
[2018-01-17] MEDS: BACLOFEN 10 MG TABLET (FP) PO SCH (05:09)
[2018-01-17] MEDS: GABAPENTIN 300 MG CAPSULE (FP) PO SCH ×3 (05:09→21:26)
[2018-01-17] MEDS: DOCUSATE SODIUM 100 MG CAPSULE (FP) PO SCH ×3 (05:09→21:26)
[2018-01-17] MEDS: PANTOPRAZOLE 40 MG TABLET (FP) PO SCH ×2 (09:42→21:26)
[2018-01-17] MEDS: LIDOCAINE 5% TOPICAL PATCH TP SCH (09:42)
[2018-01-17] MEDS: MORPHINE SULFATE 2 MG/ML VIAL IVPUSH PRN (10:09)
[2018-01-17] MEDS: POLYETHYLENE GLYCOL 3350 119 GM BTL PO PRN (10:44)
--- NOTE | 2018-01-17 11:09 | PN ---
Physical Exam: SUBJECTIVE: Patient seen and examined this AM. Did not go for surgery due to case delays. Pt is scheduled for OR on Monday. Complaining that pain is worse today, likely due to missed PO meds yesterday prior to possible OR. She says the IV pain meds helped overnight, though she didnt think that they would. Pt is somewhat tearful this morning with the disappointment of not going for surgery yesterday. OBJECTIVE: Vital Signs Period Temp Pulse Resp BP Sys/Brenner Pulse Ox Last 24 Hr 97.4 F-98.2 F 78-86 18-20 126-149/64-83 99-99 GENERAL: A&O, No acute distress currently HEAD: Normocephalic, atraumatic. EYES: PERRL, no scleral icterus EARS, NOSE, THROAT: oropharynx clear without exudates. Moist mucous membranes. NECK: supple without lymphadenopathy LUNGS: CTA b/l, no crackles or wheezes HEART: Regular rate and rhythm, normal S1 and S2 without murmur ABDOMEN: Soft, nontender to palpation, normoactive bowel sounds MUSCULOSKELETAL: Tenderness on palpation in lumbar region EXTREMITIES: 2+ pulses, warm, well-perfused. nonpitting edema improved on left ankle and foot NEUROLOGICAL: Cranial nerves II-XII grossly intact. strength exam limited due to pain. decreased sensation on left leg compared to right. PSYCHIATRIC: Cooperative. Good eye contact. Appropriate mood and affect today SKIN: Warm, dry, no rashes or lesions noted. Active Medications Generic Name Dose Route Start Last Admin Trade Name Freq PRN Reason Stop Dose Admin Cyclobenzaprine HCl 10 mg 01/17/18 14:00 Flexeril - PO TID SANDRA Docusate Sodium 100 mg 01/12/18 12:15 01/17/18 05:09 Colace - PO 100 mg TID SANDRA Administration Gabapentin 300 mg 01/13/18 14:00 01/17/18 05:09 Neurontin - PO 300 mg TID SANDRA Administration Lidocaine 1 patch 01/10/18 10:00 01/17/18 09:42 Lidoderm Patch - TP 1 patch DAILY SANDRA Administration Miscellaneous 1 each 01/10/18 22:00 01/16/18 22:02 Lidoderm Patch Removal MC Not Given DAILY@2200 SANDRA Morphine Sulfate 2 mg 01/17/18 08:46 01/17/18 10:09 Morphine Sulfate IVPUSH 2 mg Q4H PRN Administration PAIN LEVEL 6-10 Oxycodone HCl 5 mg 01/15/18 13:37 01/17/18 05:15 Roxicodone - PO 5 mg Q4H PRN Administration PAIN LEVEL 6-10 Pantoprazole Sodium 40 mg 01/14/18 22:00 01/17/18 09:42 Protonix - PO 40 mg BID SANDRA Administration Polyethylene Glycol 17 gm 01/13/18 10:08 01/17/18 10:44 Miralax (For Daily Use) - PO 17 gm DAILY PRN Administration CONSTIPATION Senna 2 tab 01/10/18 22:00 01/16/18 21:52 Senna - PO 2 tab HS SANDRA Administration ASSESSMENT/PLAN: 47 yo female with chronic low back pain secondary to spinal stenosis admitted for acute onset of worsening back pain. Pt also currently on therapy for UTI. Acute on Chronic Low back pain with radiculopathy to left leg -Denies any recent trauma or heavy lifting, unsure of etiology of worsening pain at this time -No signs of saddle anesthesia and denies any bladder or bowel incontinence or retention -Swelling of left extremity most likely dependent due to minimal use secondary to pain, improved -Pain management consult appreciated Neurontin 300 mg PO TID -Physical Therapy working with her daily, slowly improving -Pain being managed with Oxycodone 5mg PO Q4 PRN, Neurontin as above, Flexeril 10 mg PO TID, Lidocaine patch, warm pack prn. -Morphine 2 mg IV Q4 PRN for worsening pain until OR on Monday. -Colace TID, with bowel movement overnight -Dr. Nelson knows the patient well Pt with known severe lumbar stenosis and radiculopathy, worse now than before Unable to go to OR yesterday due to scheduling issue For OR on Monday as per Ortho -Pt complaining of additional muscle spasms this afternoon, will add Valium 5 mg PO Q6 PRN in addition to current regimen UTI -Completed treatment with macrobid -not currently complaining of dysuria, hematuria DVT Prophylaxis -Lovenox 40 mg SQ Daily FEN -Fluids: no fluids -Electrolytes: No electrolyte abnormalities -Nutrition: Regular diet Disposition Continue to monitor on Med/Surg Visit type - Emergency Visit Emergency Visit: Yes ED Registration Date: 01/10/18 Care time: The patient presented to the Emergency Department on the above date and was hospitalized for further evaluation of their emergent condition. - New Patient This patient is new to me today: No - Critical Care Critical Care patient: No
[2018-01-17] MEDS: CYCLOBENZAPRINE HCL 10 MG TABLET (FP) PO SCH ×2 (13:03→21:26)
[2018-01-17] MEDS: ENOXAPARIN NA (PORCINE) 40 MG/0.4 ML DISP.SYRIN SQ SCH (13:03)
--- NOTE | 2018-01-17 13:20 | PN ---
Teaching Attending Note Name of Resident: David Diaz ATTENDING PHYSICIAN STATEMENT I saw and evaluated the patient. I reviewed the resident's note and discussed the case with the resident. I agree with the resident's findings and plan as documented. SUBJECTIVE:pain is currently not controlled, no relief with percocet. denies Cp , SOB, fever, chills, N/V/C/D. BM yesterday OBJECTIVE: Last Vital Signs Temp Pulse Resp BP Pulse Ox 98.2 F 83 17 123/61 99 01/17/18 13:10 01/17/18 13:10 01/17/18 13:10 01/17/18 13:10 01/17/18 09:00 General NAD ASSESSMENT AND PLAN: 47 yo F with PMhx of chronic back pain, Lumbar disc disease (reportedly since injury in 04/2016), followed by Dr. Nelson (spine), and Dr Thomas (pain management) comes with worsening back pain and lumbar radiculopathy for last 2 days. 1. Acute on chronic low back pain with lumbar radiculopathy-MRI showing L5-S1/L5 -S1 disc desiccation with neural foramen bulge with worsening radicular pain. unable to perform surgery till monday (01/20). will start morphone prn pain. further recommendations per ortho. d/w possible need for MAURICIO on discharge which pt is agreeable if needed. 2. LLE edema,likely Dependent edema from decreased mobility- doppler negative for DVT 3. Obesity- BMI 38. intentional 20lb weight loss through diet. dietary eval to support dietary changes 4. Recent UTI- completed abx treatment 5. DVT ppx- lovenox 6. pt will likely require MARUICIO on discharge.
--- NOTE | 2018-01-17 14:17 | PN ---
Progress Note (short form) - Note Progress Note: 50F admitted due to acute, painful exacerbation of symptoms associated with post -traumatic, work-related: 1. Multilevel lumbar intervertebral disk disorder with associated radiculopathy (L4-L5 & L5-S1) 2. Lumbar spinal stenosis with associated neurogenic claudication 3. Lumbar spondylolisthesis (anterolisthesis) of L4 on L5 Plan: -OR Monday01/19/2018, afternoon. -Pain control: no NSAID's. -DVT PPx: -Mechanical only as of 01/18/2018: LEOPOLDO's, SCD's. -Incentive spirometry. -PT/OT/Rehab, OOB. -WBAT B/L LE. -Annelise-operative medical optimization appreciated as per primary medical team. -Will follow. Gage Nelson MD (Orthopaedic Surgery).
[2018-01-17] MEDS: diazePAM 5 MG TABLET PO PRN (18:06)
[2018-01-17] MEDS: SENNOSIDES 8.6MG TABLET (FP) PO SCH (21:26)
[2018-01-17] MEDS: LIDOCAINE PATCH REMOVAL MC SCH (22:30)
[2018-01-18] MEDS: MORPHINE SULFATE 2 MG/ML VIAL IVPUSH PRN ×2 (00:45→16:33)
[2018-01-18] MEDS: GABAPENTIN 300 MG CAPSULE (FP) PO SCH ×3 (06:11→21:18)
[2018-01-18] MEDS: CYCLOBENZAPRINE HCL 10 MG TABLET (FP) PO SCH ×3 (06:11→21:18)
[2018-01-18] MEDS: DOCUSATE SODIUM 100 MG CAPSULE (FP) PO SCH ×3 (06:12→21:18)
[2018-01-18] MEDS: oxyCODONE HCL 5 MG TABLET PO PRN (06:58)
[2018-01-18] MEDS: POLYETHYLENE GLYCOL 3350 119 GM BTL PO PRN (08:57)
[2018-01-18] MEDS: diazePAM 5 MG TABLET PO PRN ×2 (08:57→22:58)
[2018-01-18] MEDS: LIDOCAINE 5% TOPICAL PATCH TP SCH (09:02)
[2018-01-18] MEDS: PANTOPRAZOLE 40 MG TABLET (FP) PO SCH ×2 (09:02→21:18)
[2018-01-18] MEDS: ENOXAPARIN NA (PORCINE) 40 MG/0.4 ML DISP.SYRIN SQ SCH (10:08)
--- NOTE | 2018-01-18 12:24 | PN ---
Physical Exam: SUBJECTIVE: Patient seen and examined this AM. Says the the Valium helped her a lot last night. She says it helped with her muscle spasms and allowed her to sleep for a little while which she has not done well recently. She is having some muscle spasms this morning, so I explained to her that the valium is every 6 hrs as needed and that she must request it. She received another dose and was feeling much better again by the time we rounded as a team. OBJECTIVE: Vital Signs Period Temp Pulse Resp BP Sys/Brenner Pulse Ox Last 24 Hr 97.5 F-98.2 F 77-91 17-18 106-126/61-73 98 GENERAL: A&O, No acute distress currently HEAD: Normocephalic, atraumatic. EYES: PERRL, no scleral icterus EARS, NOSE, THROAT: oropharynx clear without exudates. Moist mucous membranes. NECK: supple without lymphadenopathy LUNGS: CTA b/l, no crackles or wheezes HEART: Regular rate and rhythm, normal S1 and S2 without murmur ABDOMEN: Soft, nontender to palpation, normoactive bowel sounds MUSCULOSKELETAL: Tenderness on palpation in lumbar region EXTREMITIES: 2+ pulses, warm, well-perfused. NEUROLOGICAL: Cranial nerves II-XII grossly intact. strength exam limited due to pain. decreased sensation on left leg compared to right. PSYCHIATRIC: Cooperative. Good eye contact. Appropriate mood and affect today SKIN: Warm, dry, no rashes or lesions noted. Active Medications Generic Name Dose Route Start Last Admin Trade Name Freq PRN Reason Stop Dose Admin Cyclobenzaprine HCl 10 mg 01/17/18 14:00 01/18/18 06:11 Flexeril - PO 10 mg TID SANDRA Administration Diazepam 5 mg 01/17/18 17:46 01/18/18 08:57 Valium - PO 5 mg Q6H PRN Administration MUSCLE SPASMS Docusate Sodium 100 mg 01/12/18 12:15 01/18/18 06:12 Colace - PO 100 mg TID SANDRA Administration Enoxaparin Sodium 40 mg 01/17/18 11:30 01/18/18 10:08 Lovenox - SQ 40 mg DAILY SANDRA Administration Gabapentin 300 mg 01/13/18 14:00 01/18/18 06:11 Neurontin - PO 300 mg TID SANDRA Administration Lidocaine 1 patch 01/10/18 10:00 01/18/18 09:02 Lidoderm Patch - TP 1 patch DAILY SANDRA Administration Miscellaneous 1 each 01/10/18 22:00 01/17/18 22:30 Lidoderm Patch Removal MC 1 each DAILY@2200 SANDRA Administration Morphine Sulfate 2 mg 01/17/18 08:46 01/18/18 00:45 Morphine Sulfate IVPUSH 2 mg Q4H PRN Administration PAIN LEVEL 6-10 Oxycodone HCl 5 mg 01/15/18 13:37 01/18/18 06:58 Roxicodone - PO 5 mg Q4H PRN Administration PAIN LEVEL 6-10 Pantoprazole Sodium 40 mg 01/14/18 22:00 01/18/18 09:02 Protonix - PO 40 mg BID SANDRA Administration Polyethylene Glycol 17 gm 01/13/18 10:08 01/18/18 08:57 Miralax (For Daily Use) - PO 17 gm DAILY PRN Administration CONSTIPATION Senna 2 tab 01/10/18 22:00 01/17/18 21:26 Senna - PO 2 tab HS SANDRA Administration ASSESSMENT/PLAN: 47 yo female with chronic low back pain secondary to spinal stenosis admitted for acute onset of worsening back pain. Pt also currently on therapy for UTI. Acute on Chronic Low back pain with radiculopathy to left leg -Denies any recent trauma or heavy lifting, unsure of etiology of worsening pain at this time -No signs of saddle anesthesia and denies any bladder or bowel incontinence or retention -Swelling of left extremity most likely dependent due to minimal use secondary to pain, improved -Pain management consult appreciated Neurontin 300 mg PO TID -Physical Therapy working with her daily, slowly improving -Pain being managed with Oxycodone 5mg PO Q4 PRN, Neurontin as above, Flexeril 10 mg PO TID, Lidocaine patch, warm pack prn. -Morphine 2 mg IV Q4 PRN rarely being requested -Colace TID, with bowel movement overnight -Dr. Nelson knows the patient well Pt with known severe lumbar stenosis and radiculopathy, worse now than before For OR on Monday as per Ortho though not on schedule yet, will do ECG and make NPO at midnight and recheck schedule in AM -Valium 5 mg PO Q6 PRN in addition to current regimen provided good relief UTI -Completed treatment with macrobid -not currently complaining of dysuria, hematuria DVT Prophylaxis -Lovenox 40 mg SQ Daily FEN -Fluids: no fluids -Electrolytes: No electrolyte abnormalities -Nutrition: Regular diet Disposition Continue to monitor on Med/Surg Visit type - Emergency Visit Emergency Visit: Yes ED Registration Date: 01/10/18 Care time: The patient presented to the Emergency Department on the above date and was hospitalized for further evaluation of their emergent condition. - New Patient This patient is new to me today: No - Critical Care Critical Care patient: No
--- NOTE | 2018-01-18 12:34 | PN ---
Teaching Attending Note Name of Resident: David Diaz ( ) ATTENDING PHYSICIAN STATEMENT I saw and evaluated the patient. I reviewed the resident's note and discussed the case with the resident. I agree with the resident's findings and plan as documented. SUBJECTIVE:pain is controlled. denies CP, SOB, fever, chills, N/V/C/D OBJECTIVE: Last Vital Signs Temp Pulse Resp BP Pulse Ox 98 F 80 18 115/68 98 01/18/18 09:00 01/18/18 09:00 01/18/18 09:00 01/18/18 09:00 01/17/18 21:00 General NAD ASSESSMENT AND PLAN: 47 yo F with PMhx of chronic back pain, Lumbar disc disease (reportedly since injury in 04/2016), followed by Dr. Nelson (spine), and Dr Thomas (pain management) comes with worsening back pain and lumbar radiculopathy for last 2 days. 1. Acute on chronic low back pain with lumbar radiculopathy-MRI showing L5-S1/L5 -S1 disc desiccation with neural foramen bulge with worsening radicular pain. unable to perform surgery till monday (01/20). further recommendations per ortho. d/w possible need for MAURICIO on discharge which pt is agreeable if needed. 2. LLE edema,likely Dependent edema from decreased mobility- doppler negative for DVT 3. Obesity- BMI 38. intentional 20lb weight loss through diet. dietary eval to support dietary changes 4. Recent UTI- completed abx treatment 5. DVT ppx- lovenox 6. pt will likely require MAURICIO on discharge.
[2018-01-18] MEDS: SENNOSIDES 8.6MG TABLET (FP) PO SCH (21:19)
[2018-01-18] MEDS: LIDOCAINE PATCH REMOVAL MC SCH (21:19)
--- NOTE | 2018-01-18 22:56 | PN ---
Progress Note (short form) - Note Progress Note: 50F admitted due to acute, painful exacerbation of symptoms associated with post -traumatic, work-related: 1. Multilevel lumbar intervertebral disk disorder with associated radiculopathy (L4-L5 & L5-S1) 2. Lumbar spinal stenosis with associated neurogenic claudication 3. Lumbar spondylolisthesis (anterolisthesis) of L4 on L5 Plan: -OR tomorrow, Monday01/19/2018, at 2pm. -NPO at midnight. -Pain control: no NSAID's. -DVT PPx: -Mechanical only: LEOPOLDO's, SCD's. -No Chemical DVT PPx. -Incentive spirometry. -PT/OT/Rehab, OOB. -WBAT B/L LE. -Annelise-operative medical optimization appreciated as per primary medical team. -Will follow. Gage Nelson MD (Orthopaedic Surgery).
[2018-01-19] MEDS: MORPHINE SULFATE 2 MG/ML VIAL IVPUSH PRN ×2 (01:22→06:43)
[2018-01-19] MEDS: GABAPENTIN 300 MG CAPSULE (FP) PO SCH ×2 (06:04→13:16)
[2018-01-19] MEDS: DOCUSATE SODIUM 100 MG CAPSULE (FP) PO SCH ×2 (06:04→13:17)
[2018-01-19] MEDS: CYCLOBENZAPRINE HCL 10 MG TABLET (FP) PO SCH ×2 (06:04→13:17)
--- NOTE | 2018-01-19 09:09 | EKG ---
Test Reason : Blood Pressure : / mmHG Vent. Rate : 078 BPM Atrial Rate : 078 BPM P-R Int : 150 ms QRS Dur : 078 ms QT Int : 384 ms P-R-T Axes : 050 063 060 degrees QTc Int : 437 ms NORMAL SINUS RHYTHM NO PREVIOUS ECGS AVAILABLE Confirmed by MARIE YIP MD ([id number]) on 01/19/2018 9:09:15 AM Referred By: IZZY LONG Confirmed By:MARIE YIP MD
[2018-01-19] MEDS: LIDOCAINE 5% TOPICAL PATCH TP SCH (09:54)
[2018-01-19] MEDS: PANTOPRAZOLE 40 MG TABLET (FP) PO SCH (09:55)
--- NOTE | 2018-01-19 10:32 | PN ---
Progress Note (short form) - Note Progress Note: 50F admitted due to acute, painful exacerbation of symptoms associated with post -traumatic, work-related: 1. Multilevel lumbar intervertebral disk disorder with associated radiculopathy (L4-L5 & L5-S1) 2. Lumbar spinal stenosis with associated neurogenic claudication 3. Lumbar spondylolisthesis (anterolisthesis) of L4 on L5 Plan: -OR today at 2pm. -NPO. -DVT PPx: -Mechanical only: LEOPOLDO's, SCD's. -No Chemical DVT PPx. -Pain control: no NSAID's. -Incentive spirometry. -PT/OT/Rehab, OOB. -WBAT B/L LE. -Annelise-operative medical optimization appreciated as per primary medical team. -Will follow. Gage Nelson MD (Orthopaedic Surgery).
--- NOTE | 2018-01-19 10:55 | PN ---
Physical Exam: SUBJECTIVE: Patient seen and examined this AM. Pt NPO at midnight and off DVT prophylaxis today. For OR at 2pm. Otherwise all her pain complaints remain stable. Pt says she did not tolerate SCD on her left leg last night due to pain , though tolerated well on the right. OBJECTIVE: Vital Signs Period Temp Pulse Resp BP Sys/Brenner Pulse Ox Last 24 Hr 97.9 F-98.3 F 82-92 16-20 101-147/64-83 95 GENERAL: A&O, No acute distress currently HEAD: Normocephalic, atraumatic. EYES: PERRL, no scleral icterus EARS, NOSE, THROAT: oropharynx clear without exudates. Moist mucous membranes. NECK: supple without lymphadenopathy LUNGS: CTA b/l, no crackles or wheezes HEART: Regular rate and rhythm, normal S1 and S2 without murmur ABDOMEN: Soft, nontender to palpation, normoactive bowel sounds MUSCULOSKELETAL: Tenderness on palpation in lumbar region EXTREMITIES: 2+ pulses, warm, well-perfused. NEUROLOGICAL: Cranial nerves II-XII grossly intact. strength exam limited due to pain. decreased sensation on left leg compared to right. PSYCHIATRIC: Cooperative. Good eye contact. Appropriate mood and affect today SKIN: Warm, dry, no rashes or lesions noted. Active Medications Generic Name Dose Route Start Last Admin Trade Name Connerq PRN Reason Stop Dose Admin Cyclobenzaprine HCl 10 mg 01/17/18 14:00 01/19/18 06:04 Flexeril - PO 10 mg TID SANDRA Administration Diazepam 5 mg 01/17/18 17:46 01/18/18 22:58 Valium - PO 5 mg Q6H PRN Administration MUSCLE SPASMS Docusate Sodium 100 mg 01/12/18 12:15 01/19/18 06:04 Colace - PO 100 mg TID SANDRA Administration Gabapentin 300 mg 01/13/18 14:00 01/19/18 06:04 Neurontin - PO 300 mg TID SANDRA Administration Lidocaine 1 patch 01/10/18 10:00 01/19/18 09:54 Lidoderm Patch - TP 1 patch DAILY SANDRA Administration Miscellaneous 1 each 01/10/18 22:00 01/18/18 21:19 Lidoderm Patch Removal MC 1 each DAILY@2200 SANDRA Administration Morphine Sulfate 2 mg 01/17/18 08:46 01/19/18 06:43 Morphine Sulfate IVPUSH 2 mg Q4H PRN Administration PAIN LEVEL 6-10 Oxycodone HCl 5 mg 01/15/18 13:37 01/18/18 06:58 Roxicodone - PO 5 mg Q4H PRN Administration PAIN LEVEL 6-10 Pantoprazole Sodium 40 mg 01/14/18 22:00 01/19/18 09:55 Protonix - PO 40 mg BID SANDRA Administration Polyethylene Glycol 17 gm 01/13/18 10:08 01/18/18 08:57 Miralax (For Daily Use) - PO 17 gm DAILY PRN Administration CONSTIPATION Senna 2 tab 01/10/18 22:00 01/18/18 21:19 Senna - PO 2 tab HS SANDRA Administration ASSESSMENT/PLAN: 47 yo female with chronic low back pain secondary to spinal stenosis admitted for acute onset of worsening back pain. Pt also currently on therapy for UTI. Acute on Chronic Low back pain with radiculopathy to left leg -Denies any recent trauma or heavy lifting, unsure of etiology of worsening pain at this time -No signs of saddle anesthesia and denies any bladder or bowel incontinence or retention -Pain management consult appreciated -Oxycodone 5mg PO Q4 PRN, Neurontin as above, Flexeril 10 mg PO TID, Lidocaine patch, warm pack prn, Neurontin 300 mg PO TID -Morphine 2 mg IV Q4 PRN rarely being requested, Colace TID -Dr. Nelson knows the patient well Pt with known severe lumbar stenosis and radiculopathy, worse now than before -Valium 5 mg PO Q6 PRN in addition to current regimen provided good relief -OR Today around 14:00, will evaluate post-op and medically optimize during the post-operative period ECG with normal QTc this morning UTI -Completed treatment with macrobid -not currently complaining of dysuria, hematuria DVT Prophylaxis -Mechanical only until okayed by surgery FEN -Fluids: no fluids -Electrolytes: No electrolyte abnormalities -Nutrition: Regular diet Disposition Continue to monitor on Med/Surg Visit type - Emergency Visit Emergency Visit: Yes ED Registration Date: 01/10/18 Care time: The patient presented to the Emergency Department on the above date and was hospitalized for further evaluation of their emergent condition. - New Patient This patient is new to me today: No - Critical Care Critical Care patient: No
--- NOTE | 2018-01-19 11:05 | PN ---
Teaching Attending Note Name of Resident: David Diaz ATTENDING PHYSICIAN STATEMENT I saw and evaluated the patient. I reviewed the resident's note and discussed the case with the resident. I agree with the resident's findings and plan as documented. SUBJECTIVE:pain is controlled. excited anticipating surgery. denies Cp, SOB, fever, chills, n/v/c/d OBJECTIVE: Last Vital Signs Temp Pulse Resp BP Pulse Ox 98.2 F 78 18 133/85 95 01/19/18 10:00 01/19/18 10:01/19/18 10:01/19/18 10:01/18/18 21:00 General NAD ASSESSMENT AND PLAN: 47 yo F with PMhx of chronic back pain, Lumbar disc disease (reportedly since injury in 04/2016), followed by Dr. Nelson (spine), and Dr Thomas (pain management) comes with worsening back pain and lumbar radiculopathy for last 2 days. 1. Acute on chronic low back pain with lumbar radiculopathy-MRI showing L5-S1/L5 -S1 disc desiccation with neural foramen bulge with worsening radicular pain. NPO for OR today. pt is low risk for intermediate risk procedure METS >4. further recommendations per ortho. d/w possible need for MAURICIO on discharge which pt is agreeable if needed. 2. LLE edema,likely Dependent edema from decreased mobility- doppler negative for DVT 3. Obesity- BMI 38. intentional 20lb weight loss through diet. dietary eval to support dietary changes 4. Recent UTI- completed abx treatment 5. DVT ppx- SCD. hold pharmacologic anticoagulation 6. pt will likely require MAURICIO on discharge.
[2018-01-19] MEDS ORDERED: THROMBIN (BOVINE) 5,000 UNIT VIAL TP ONE ×2 (13:31→16:30)
[2018-01-19] MEDS ORDERED: HEPARIN NA (PORCINE) 5,000 UNITS/ML 1ML VIAL ONE (13:31)
[2018-01-19] MEDS ORDERED: LIDOCAINE HCL/PF 2% SDV 5ML VIAL ONE (14:18)
[2018-01-19] MEDS ORDERED: fentaNYL CITRATE 250 MCG/5 ML VIAL ONE (14:18)
[2018-01-19] MEDS ORDERED: MIDAZOLAM HCL 2 MG/2 ML SINGLE DOSE VIAL ONE (14:19)
[2018-01-19] MEDS ORDERED: PROPOFOL 20 ML ONE ×16 (14:19→20:33)
[2018-01-19] MEDS ORDERED: ROCURONIUM BROMIDE 50 MG/5 ML VIAL ONE ×2 (14:19→18:01)
[2018-01-19] MEDS ORDERED: morphine SULFATE/Preservative Free 0.5 MG/ML (1cc Syringe) ONE (15:20)
[2018-01-19] MEDS ORDERED: BUPIVACAINE 0.75% IN DEXTROSE/PF 2ML AMPULE NR ONE (15:21)
[2018-01-19] MEDS ORDERED: VANCOMYCIN 1,000 MG VIAL (RESTRICTED TO ID ONLY) IVPB ONE ×2 (16:10)
[2018-01-19] MEDS ORDERED: SUCCINYLCHOLINE CHLORIDE 200 MG/10 ML VIAL ONE (16:19)
[2018-01-19] MEDS ORDERED: LACTATED RINGERS SOLUTION 1,000 ML IV SCH ×2 (16:30→22:45)
[2018-01-19] MEDS ORDERED: PROMETHAZINE HCL 25 MG/1 ML VIAL IVPUSH PRN (16:30)
[2018-01-19] MEDS ORDERED: ONDANSETRON 4 MG/2 ML VIAL IVPUSH PRN ×3 (16:30→22:52)
[2018-01-19] MEDS ORDERED: VANCOMYCIN 1,000 MG VIAL (RESTRICTED TO ID ONLY) ONE (16:40)
[2018-01-19] MEDS ORDERED: ceFAZolin SODIUM 1 GM VIAL ONE ×2 (16:40→21:02)
[2018-01-19] MEDS ORDERED: TRANEXAMIC ACID 1000 MG/10 ML VIAL ONE (16:40)
[2018-01-19] MEDS ORDERED: ceFAZolin SODIUM 1 GM VIAL IVPB ONE ×2 (16:55)
[2018-01-19] MEDS ORDERED: GLYCOPYRROLATE 0.2 MG/1 ML VIAL ONE (18:29)
[2018-01-19] MEDS ORDERED: NEOSTIGMINE METHYLSULFATE 0.5 MG/ML - 10 ML MDV ONE (18:29)
[2018-01-19] MEDS ORDERED: DESFLURANE GAS 240 ML BOTTLE IH ONE (20:22)
[2018-01-19] MEDS ORDERED: SODIUM CHLORIDE 0.9% P/F 10 ML VIAL IJ ONE (21:02)
[2018-01-19] MEDS ORDERED: BUPIVACAINE HCL/PF 0.25% (2.5MG/ML) 10 ML VIAL ONE (21:24)
[2018-01-19] MEDS ORDERED: BENZOIN/ALOE VERA/STORAX/TOLU 58 ML BOTTLE ONE (21:57)
[2018-01-19] MEDS: LACTATED RINGERS SOLUTION 1,000 ML IV SCH (22:23)
--- NOTE | 2018-01-19 22:24 | PN ---
Progress Note (short form) - Note Progress Note: Pt. seen and examined in pre-op holding area. H&P unchanged. Risks, benefits, and alternatives of surgical plan discussed with and understood by patient. She wishes to continue as planned with L4-L5, L5-S1 PLIF, L4-S1 PISF. Gage Nelson MD (Orthopaedic Surgery).
--- NOTE | 2018-01-19 22:26 | PN ---
Progress Note (short form) - Note Progress Note: 47F s/p L4-S1 laminectomies; L3 partial laminectomy; L4-L5, & L5-S1 PLIF, L4-S1 PISF POD #0. -Admit to ICU post-op. -Pain control: per anaesthesia team; recommend SNOW SHOVELER. -DVT PPx: - Mechanical only: LEOPOLDO's, SCD's. -Incentive spirometry q15min. -PT/OT/Rehab, OOB. -WBAT B/L LE. -q4h B/L LE NV checks. -Post-op antibiotics x 2 doses (Ancef & Vancomycin). -NPO until flatus. -f/u AM labs. -f/u drain output. -d/c Joy catheter when patient ambulating comfortably. -Care per ICU & medical hospitalist team. -Discharge planning: f/u 7-10 days after discharge at [facility] [place] [facility]; call for appointment; . -Will follow. Gage Nelson MD (Orthopaedic Surgery).
--- NOTE | 2018-01-19 22:34 | OP ---
Operative Note - Note: Operative Date: 01/19/18 Pre-Operative Diagnosis: Severe lumbar spinal stenosis. Neurogenic claudication. Lumbar radiculopathy. Rapid progressive neurological decline Operation: 1. L3 partial laminectomy. 2. L4, L5, S1 laminectomies. 3. L4-L5, L5-S1 discectomies. 4. L4-L5, L5-S1 posterior lumbar interbody fusion. 5. L4- S1 postero-lateral instrumentation. 6. L4-S1 postero-lateral arthrodesis. 7. Bone marrow aspiration. 8. Bone autograft. 9. Bone allograft Surgeon: Gage Nelson Software Application Tester: Syed Nelson Anesthesiologist/[employer] INTERN: Obie Song Specimens Removed: L4-L5, L5-S1 discs Estimated Blood Loss (mls): 650 Drains & Tubes with Location: 1 x superficial HemoVac Blood Volume Replaced (mls): 250 (Cell Saver) Fluid Volume Replaced (mls): 1,800 (Crystalloid) Operative Report Dictated: Yes
[2018-01-19] MEDS ORDERED: ACETAMINOPHEN INJECTION 100 ML IVPB ONE (22:41)
[2018-01-19] MEDS ORDERED: ACETAMINOPHEN 1000 MG/100 ML VIAL (NON FORMULARY) IVPB SCH (22:45)
[2018-01-19] MEDS: ACETAMINOPHEN 1000 MG/100 ML VIAL (NON FORMULARY) IVPB SCH (22:45)
[2018-01-19] MEDS ORDERED: ceFAZolin 2 GRAM PREMIX BAG IVPB SCH (22:45)
[2018-01-19] MEDS ORDERED: PROMETHAZINE HCL 25 MG/1 ML VIAL IVPB PRN (22:52)
--- NOTE | 2018-01-19 23:37 | OP ---
DATE OF OPERATION: DATE OF DICTATION: 01/19/2018 SURGEON: Gage Nelson MD ALFALFA DEHYDRATOR OPERATOR: Syed Nelson MD ANESTHESIA: General. PREOPERATIVE DIAGNOSES: Severe spinal stenosis L4-5, L5-S1 with associated spondylolisthesis grade 1, segment instability, and kyphosis. POSTOPERATIVE DIAGNOSES: Severe spinal stenosis L4-5, L5-S1 with associated spondylolisthesis grade 1, segment instability, and kyphosis. OPERATION PERFORMED: 1. Laminectomy L4 and L5 with undercutting superior facetectomy. 2. L4-5, L5-S1 posterior lumbar interbody fusion with cages x2 (Fortilink). 3. Incidental durotomy with primary repair. 4. Pedicle screw instrumentation, L4-5, S1. 5. Posterolateral arthrodesis, L4-5, S1. 6. Partial corpectomy L5 as well as S1. 7. Use of biplane fluoroscopy and intraoperative neural monitoring. 8. Bone marrow aspirate concentrate left ilium. 9. Autologous bone grafting expanded with allograft. BLOOD LOSS: 650 mL, Cell Saver utilized 250 mL. OVERALL COMMENT: Extremely difficult operation because of morbid obesity and associated severe spinal stenosis and osteoporotic type bone. INDICATIONS FOR THE SURGERY: The patient was admitted with progressive neurological weakness and intractable pain from previous injury with progressive clinical deterioration requiring hospitalization and failed conservative treatment to control this. Patient suffers from morbid obesity. OPERATION DETAILS: Patient correctly identified, brought to the operating room, placed prone on a Cosme table after general anesthesia and regular intubation. All bony points including the face and attention to brachial plexus achieved appropriately. The skin was prepped with Betadine scrub solution, wiped with alcohol, and DuraPrep applied, and appropriate window drape applied accordingly. A timeout was called. Intraoperative imagine was available for intraoperative evaluation accordingly. This included MRIs and x-rays. A midline incision utilized exposing from L2 to S1. The thickness of the subcutaneous fat layer was approximately 6 inches. Dissection was taken to the tip of the spinous process from L2 to S1. A subperiosteal dissection was performed. Retractors were placed appropriately in the muscle subfascial space. The dissection was then taken out over the lamina over the fascial joints exposing the transverse process of L4 and L5 and the ala of the sacrum accordingly. The intertransverse plane is packed with sponges. Hemostasis was readily achieved. Lateral fluoroscopic x-rays helped delineate the appropriate levels for surgical intervention, and this was helped with anatomical guidelines namely sharp edge of inferior lamina, the tympanic sound of the pelvis versus lumbar spine, and the appropriate last mobile segment evaluated using rongeurs to hold the spinous processes. A complete laminectomy of L4 and 5 performed using alyssia, Leksell rongeurs, and Kerrison upcuts. A 1-cm dural tear occurred at the distal end of the S1 aspect of the theca, and this was repaired with an appropriate primary suture with 4-0 Nurolon. Watertight sealing of the dura achieved. No leakage even on 2 separate Valsalva maneuver occasions each blown up to 40 mmHg. Once the decompression had been completed, and this revealed the presence of a most severe spinal stenosis that once the entire thecal elements and the mural elements were identified, that is the nerve roots exiting through each individual foramen, the theca was inspected and found to have hourglass constrictions on them indicative of the chronicity of the stenosis. The superior facets were undercut at each level to provide complete freeing of the nerve roots and exiting out around each pedicle into the respected neural foramina. Once this had been achieved, the theca was retracted from left to right at L4-5 and L5-S1 and each disk was dealt with in identically the same manner with epidural veins being optimized with bipolar Bovie and set at 15 milliamps. An annulotomy performed at L4-5 and L5-S1. Complete discectomies performed facilitated by the use of shaver devices. The shaving at L4-5 was to size 10 and the shaving at L5-S1 was to size 9. All disk material resected and removed. Final facilitation of removal of disk material was with a serrated curette palpating the endplates revealing that they were completely freed of soft tissue down to healthy bleeding bony surface. Each disk space was packed with autologous bone graft that was the bone harvested from the posterior elements milled in a [place] [place]. Each disk was packed with bone thus completing an anterior arthrodesis at L4-5 and L5-S1. To maintain the disk heights, the cages, namely Fortilink cages measuring 23 mm x 11 at L4-5 and 23 mm x 10 mm in height at L5-S1. Each cage as noted was press fitted into position. Solid fixation achieved. Lateral fluoroscopic x-rays revealed excellent positioning of the cages. Once this had been completed, the pedicles of L4-5, S1 were inserted by utilizing the entry point by the anatomical guidelines of the lines drawn through the superior facet crossing the 90-degree line of the transverse process. Each pedicle was drilled with a 4.5 drill bit. Each pedicle was palpated with a ball tip feeler and the screws inserted were 6.5 x 40 mm screws at L4 and L5 and 7.5 x 35 mm at S1. Each screw was tested with intraoperative neural monitoring. Concerns were of very low levels of 9 at the S1 level. This resulted in us inspected each pedicle, and no screw was noted to be protruding through the bony bed of the pedicles accordingly. Once this had been achieved and we were satisfied with positioning of the screws, an AP and lateral x-ray helped confirm this. This rods were contoured appropriately and seated into the screw head and tightened with the appropriate caps and torque device appropriately utilized to provide final seating and fixation of the screws on to the rods. The wounds were thoroughly lavaged. At that point, the muscle was gentle retracted. All sponges were removed. Sponge count was correct. A combination of bone as follows, bone marrow aspirate concentrate harvested from the left posterior ilium by a Jamshidi needle through the same wound was then spun down with the CD34 cells. This was mixed with the bone graft, which was a combination of allograft as well as autologous graft, packed into the intertransverse plane from L4 right down to the ala of the sacrum both left and right hand side. The wounds were again thoroughly lavaged. A repeat dose of antibiotic was given at this time. Preoperative antibiotics consisted of 2 g Kefzol and 1 g vancomycin, and another g of Kefzol was given at the time of the finalization of the instrumentation. The muscle was appropriately debrided and trimmed. The closure was as follows, muscle 1 Vicryl, fascia 1 Vicryl, subcutaneous 1 and 2-0 Vicryl, skin renard. DRAINAGE: One 18-inch Hemovac subcutaneously x1. The patient tolerated this well. OVERALL COMMENT: Extremely severe stenosis in a markedly obese woman. Operation went well apart from a minor dural tear which was repaired appropriately. There were no complications. Gage Nelson [email or web address] [id number]
--- NOTE | 2018-01-20 00:49 | CONSULT ---
Consultation: REQUESTING PROVIDER: Dr. Nelson CONSULT REQUEST: We have been asked to medically evaluate this patient for Dr. Nelson HISTORY OF PRESENT ILLNESS: "47 y/o Female with a PMHx of Chronic lower back pain (due to a work injury in 04/29) presents with increased Lower back pain. Patient woke this morning with 10/10, pinching Lower back pain, L>R, that is shooting down her Left leg (on all sides, anteriorly, posteriorly, lateralyl, medially) accompanied by numbness , tingling and weakness. She felt she was going to collapse whenever she stands however she is able to walk a few steps with increased pain. She normally takes Flexeril and Meloxicam to manage her chronic back pain, and she tried both this morning without any relief. She tried calling Dr. Bowers office and Dr. Campoverde's offices however she was not able to be seen today. She denies any recent trauma , heavy lifting, bending, urinary or bowel incontinence, saddle anesthesia sx." Pt. at this time denied any CP, SOB, numbness or tingling, or any pain anywhere. Pt. endorses that she is thirsty. REVIEW OF SYSTEMS: Pt. is very somnolent, asked focused questions. CONSTITUTIONAL: Absent: fever, chills, diaphoresis, generalized weakness, malaise, HEENT: Absent: throat pain, ear pain, eye pain, CARDIOVASCULAR: Absent: chest pain, syncope, palpitations, irregular heart rate, lightheadedness , peripheral edema RESPIRATORY: Absent: cough, shortness of breath, GASTROINTESTINAL: Absent: abdominal pain, abdominal distension, nausea, vomiting, diarrhea, constipation MUSCULOSKELETAL: Absent: myalgia, arthralgia, joint swelling, back pain, neck pain NEUROLOGIC: Absent: headache, focal weakness or paresthesias, dizziness, unsteady gait, seizure, mental status changes, bladder or bowel incontinence PHYSICAL EXAMINATION Vital Signs - 24 hr 01/19/18 01/19/18 01/19/18 02:00 06:00 09:00 Temperature 97.9 F 97.9 F Pulse Rate 83 82 Respiratory 18 18 18 Rate Blood Pressure 105/74 101/64 O2 Sat by Pulse 94 L Oximetry (%) 01/19/18 01/19/18 01/19/18 10:00 14:04 14:10 Temperature 98.2 F 98 F Pulse Rate 78 90 Respiratory 18 18 Rate Blood Pressure 133/85 132/85 O2 Sat by Pulse Oximetry (%) 01/19/18 01/19/18 01/19/18 22:23 22:30 22:45 Temperature 99.7 F H Pulse Rate 130 H 119 H 109 H Respiratory 12 16 18 Rate Blood Pressure 124/87 119/88 102/61 O2 Sat by Pulse 94 L 99 99 Oximetry (%) 01/19/18 01/19/18 01/19/18 23:00 23:15 23:30 Temperature Pulse Rate 100 H 93 H 95 H Respiratory 14 10 L 16 Rate Blood Pressure 111/53 110/41 107/51 O2 Sat by Pulse 97 97 96 Oximetry (%) 01/19/18 01/20/18 01/20/18 23:45 00:00 00:38 Temperature 98.8 F Pulse Rate 97 H 94 H Respiratory 16 18 Rate Blood Pressure 111/59 112/58 O2 Sat by Pulse 97 100 Oximetry (%) GENERAL: Asleep, drowsy, in no acute distress. LUNGS: Breath sounds equal, clear to auscultation bilaterally. No wheezes, and no crackles. No accessory muscle use. HEART: Regular rate and rhythm, normal S1 and S2 without murmur ABDOMEN: BS+, soft, ND, NT, Joy draining clear yellow urine UPPER EXTREMITIES: warm, well-perfused. No peripheral edema, 4/5 muscle strength b/l- poor effort? LOWER EXTREMITIES: 2+ dorsal pedal pulses, warm, well-perfused. No calf tenderness. No peripheral edema. 3/5 muscle strength on the left, 4/5 strength on the right- Poor effort? NEUROLOGICAL: Motor and sensation grossly in tact in all extremities SKIN: Warm, dry, normal turgor, Dressing intact. Laboratory Results - last 24 hr 01/19/18 01/19/18 10:05 15:00 Urine HCG, Qual Negative Blood Type A POSITIVE Antibody Screen Negative Active Medications Current Medications Acetaminophen (Ofirmev Injection -) 1,000 mg IVPB Q8H [facility] Stop: 01/21/18 14:46 Last Admin: 01/19/18 22:45 Dose: 1,000 mg Cefazolin Sodium/Dextrose (Ancef 2 Gm Premixed Ivpb -) 2 gm IVPB Q6H [facility] Stop: 01/20/18 10:46 Chlorhexidine Gluconate (Hibiclens For Decolonization -) 1 applic TP HS [facility] Cyclobenzaprine HCl (Flexeril -) 10 mg PO TID [facility] Diazepam (Valium -) 5 mg PO Q6H PRN PRN Reason: MUSCLE SPASMS Fentanyl (Sublimaze Injection -) 50 mcg IVPUSH [id number] PRN PRN Reason: PAIN-PACU ORDER X 4 DOSES ONLY Gabapentin (Neurontin -) 300 mg PO TID [facility] Cefazolin Sodium/Dextrose (Ancef 2 Gm Premixed Ivpb -) 2 gm in 50 mls @ 100 mls /hr IVPB Q6H [facility] Stop: 01/20/18 11:29 Lactated Ringer's (Lactated Ringers Solution) 1,000 mls @ 125 mls/hr IV ASDIR [facility] Last Admin: 01/19/18 22:23 Dose: 200 mls Vancomycin HCl 1,250 mg/ (Dextrose) 250 mls @ 166.667 mls/hr IVPB ONCE ONE; Protocol Stop: 01/20/18 05:29 Mupirocin (Bactroban Ointment (For Decolonization) -) 1 applic NS BID [facility] Stop: 01/25/18 09:59 Ondansetron HCl (Zofran Injection) 4 mg IVPUSH Q6H PRN PRN Reason: NAUSEA AND/OR VOMITING Pantoprazole Sodium (Protonix -) 40 mg PO BID [facility] Promethazine HCl (Phenergan Injection -) 12.5 mg IVPB Q6H PRN PRN Reason: NAUSEA-FOR RESCUE AFTER 15 MIN ASSESSMENT/PLAN: A 47F s/p L4-S1 laminectomies; L3 partial laminectomy; L4-L5, & L5-S1 PLIF, L4- S1 PISF POD #1. #Neurology -Acute on Chronic Low back pain with radiculopathy to left leg S/p L4-S1 laminectomies; L3 partial laminectomy; L4-L5, & L5-S1 PLIF, L4-S1 PISF POD#1 Pain control: per anaesthesia team; recommend SHEEP SHEARER. PT/OT/Rehab, OOB. Weight bearing as tolerated q4h B/L lower extremity neurovascular checks. Post-op antibiotics x 2 doses (Ancef & Vancomycin) c/w Protonix 40mg f/u AM labs. f/u Davol drain output. d/c Joy catheter when patient ambulating comfortably c/w Ondansetron and Promethazine PRN for jumana-operative nausea and vomiting #DVT Prophylaxis -TEDs & SCDs Only -no NSAIDs #FEN -Fluids: LR @125mls/hr -Electrolytes: F/u AM labs, replete as needed -Nutrition: NPO until flatus #Dispo: ICU Dispo: We will continue to follow the patient. Thank you for this consultative opportunity. Visit type - Emergency Visit Emergency Visit: No - New Patient This patient is new to me today: Yes Date on this admission: 01/20/18 - Critical Care Critical Care patient: No
[2018-01-20] MEDS ORDERED: VANCOMYCIN 1,250 MG in DEXTROSE 5%-WATER - 250 ML IVPB ONE (04:00)
[2018-01-20] MEDS ORDERED: ceFAZolin 2 GRAM PREMIX BAG IVPB SCH (04:45)
[2018-01-20] MEDS: CEFAZOLIN 2 GM/D5W 2 GM/50 ML ML IVPB SCH ×3 (05:00→10:54)
[2018-01-20] MEDS: ACETAMINOPHEN 1000 MG/100 ML VIAL (NON FORMULARY) IVPB SCH ×3 (06:10→21:45)
[2018-01-20] MEDS: CYCLOBENZAPRINE HCL 10 MG TABLET (FP) PO SCH ×3 (06:10→21:40)
[2018-01-20] MEDS: GABAPENTIN 300 MG CAPSULE (FP) PO SCH ×3 (06:11→21:40)
[2018-01-20 06:27] LABS: HEMATOCRIT 34.4 % (32.4-45.2); HEMOGLOBIN 11.1 GM/dL (10.7-15.3); MCH 26.3 pg (25.7-33.7); MCHC 32.2 g/dl (32.0-36.0); MEAN CELL VOLUME 81.7 fl (80-96); MEAN PLT VOLUME 8.3 fl (7.5-11.1); PLATELET COUNT 221 K/MM3 (134-434); RBC 4.22 M/mm3 (3.60-5.2); RDW 16.5 % (11.6-15.6); WHITE BLOOD COUNT 11.7 K/mm3 (4.0-10.0)
[2018-01-20 06:52] LABS: ANION GAP 4 MMOL/L (8-16); BLOOD UREA NITROGEN 11 mg/dL (7-18); CALCIUM 8.2 mg/dL (8.5-10.1); CHLORIDE 103 mmol/L (98-107); CO2 30 mmol/L (21-32); CREATININE 0.7 mg/dL (0.55-1.02); GLUCOSE,RANDOM 101 mg/dL (74-106); POTASSIUM 4.3 mmol/L (3.5-5.1); SODIUM 137 mmol/L (136-145)
--- NOTE | 2018-01-20 07:49 | PN ---
Progress Note (short form) - Note Progress Note: c/o stiffness. states she has no pain. denies Cp, SOB, fever, chills, N/V/C/D. no flatus Current Medications Generic Name Dose Route Start Last Admin Trade Name Freq PRN Reason Stop Dose Admin Acetaminophen 1,000 mg 01/20/18 06:45 01/20/18 06:10 Ofirmev Injection - IVPB 01/21/18 14:46 1,000 mg Q8H [facility] Administration Chlorhexidine Gluconate 1 applic 01/20/18 22:00 Hibiclens For Decolonization - TP HS [facility] Cyclobenzaprine HCl 10 mg 01/20/18 06:00 01/20/18 06:10 Flexeril - PO 10 mg TID [facility] Administration Diazepam 5 mg 01/19/18 22:52 Valium - PO Q6H PRN MUSCLE SPASMS Fentanyl 50 mcg 01/19/18 22:52 Sublimaze Injection - IVPUSH [id number] PRN PAIN-PACU ORDER X 4 DOSES ONLY Gabapentin 300 mg 01/20/18 06:00 01/20/18 06:11 Neurontin - PO 300 mg TID [facility] Administration Cefazolin Sodium/Dextrose 2 gm in 50 mls @ 100 mls/hr 01/19/18 23:00 06:07 Ancef 2 Gm Premixed Ivpb - IVPB 01/20/18 11:29 Not Given Q6H [facility] Lactated Ringer's 1,000 mls @ 125 mls/hr 01/19/18 22:52 01/19/18 22:23 Lactated Ringers Solution IV 200 mls ASDIR [facility] Administration Mupirocin 1 applic 01/20/18 10:00 Bactroban Ointment (For Decolonization) - NS 01/25/18 09:59 BID [facility] Ondansetron HCl 4 mg 01/19/18 22:52 Zofran Injection IVPUSH Q6H PRN NAUSEA AND/OR VOMITING Pantoprazole Sodium 40 mg 01/20/18 10:00 Protonix - PO BID [facility] Promethazine HCl 12.5 mg 01/19/18 22:52 Phenergan Injection - IVPB Q6H PRN NAUSEA-FOR RESCUE AFTER 15 MIN Last Vital Signs Temp Pulse Resp BP Pulse Ox 97.5 F L 54 L 11 L 114/51 100 01/20/18 02:00 01/20/18 06:00 01/20/18 06:00 01/20/18 06:00 01/20/18 00:38 General NAD CV S1 S2 RRR no murmur/rub/gallop Lungs CTA anteriorly Back dressing intact c/d/i. no tenderness or swelling noted. hemovac in place CBCD WBC 11.7 K/mm3 (4.0-10.0) H 01/20/18 05:30 RBC 4.22 M/mm3 (3.60-5.2) 01/20/18 05:30 Hgb 11.1 GM/dL (10.7-15.3) 01/20/18 05:30 Hct 34.4 % (32.4-45.2) 01/20/18 05:30 MCV 81.7 fl (80-96) 01/20/18 05:30 MCHC 32.2 g/dl (32.0-36.0) 01/20/18 05:30 RDW 16.5 % (11.6-15.6) H 01/20/18 05:30 Plt Count 221 K/MM3 (134-434) 01/20/18 05:30 MPV 8.3 fl (7.5-11.1) 01/20/18 05:30 CMP Sodium 137 mmol/L (136-145) 01/20/18 05:30 Potassium 4.3 mmol/L (3.5-5.1) 01/20/18 05:30 Chloride 103 mmol/L (98-107) 01/20/18 05:30 Carbon Dioxide 30 mmol/L (21-32) 01/20/18 05:30 Anion Gap 4 MMOL/L (8-16) L 01/20/18 05:30 BUN 11 mg/dL (7-18) 01/20/18 05:30 Creatinine 0.7 mg/dL (0.55-1.02) 01/20/18 05:30 Creat Clearance w eGFR > 60 (>60) 01/20/18 05:30 Calcium 8.2 mg/dL (8.5-10.1) L 01/20/18 05:30 Total Bilirubin 0.3 mg/dL (0.2-1.0) 08/29/18 06:20 AST 16 U/L (15-37) 01/10/18 06:20 ALT 20 U/L (12-78) 01/10/18 06:20 Alkaline Phosphatase 73 U/L (45-117) 01/10/18 06:20 Total Protein 6.4 g/dl (6.4-8.2) 01/10/18 06:20 Albumin 3.5 g/dl (3.4-5.0) 01/10/18 06:20 ASSESSMENT AND PLAN: 47 yo F with PMhx of chronic back pain, Lumbar disc disease (reportedly since injury in 04/2016), followed by Dr. Nelson (spine), and Dr Thomas (pain management) comes with worsening back pain and lumbar radiculopathy for last 2 days. 1. Acute severe lumbar spinal stenosis iwth neurogenic claudication- L3 partial laminectomy. 2. L4, L5, S1 laminectomies. 3. L4-L5, L5-S1 discectomies. 4. L4 -L5, L5-S1 posterior lumbar interbody fusion. 5. L4-S1 postero-lateral instrumentation. 6. L4-S1 postero-lateral arthrodesis. 7. Bone marrow aspiration. 8. Bone autograft. 9. Bone allograft on 01/19. tolerated surgery well. EBV 650cc with cellsaver and hemovac in place. perioperative Abx. NPO until flatus. will place pain meds prn as needed. encourage pt to participate with PT. incentive spirometer. iglesias until ambulating. further recommendations per ortho. 2. LLE edema,likely Dependent edema from decreased mobility- doppler negative for DVT 3. leukcytosis- likely stress induced from surgery. on prophylatic/ perioperative abx 4. Obesity- BMI 38. intentional 20lb weight loss through diet. dietary eval to support dietary changes 5. Recent UTI- completed abx treatment 6. DVT ppx- SCD. hold pharmacologic anticoagulation 7. stable for floors 8. pt will likely require MAURICIO on discharge. The care of this patient involved high complexity decision making to prevent further life threatening deterioration of the patient's condition and/or to evaluate & treat vital organ system(s) failure or risk of failure. 38 minutes Visit type - Emergency Visit Emergency Visit: Yes ED Registration Date: 01/10/18 Care time: The patient presented to the Emergency Department on the above date and was hospitalized for further evaluation of their emergent condition. - New Patient This patient is new to me today: No - Critical Care Critical Care patient: Yes Total Critical Care Time (in minutes): 38 Critical Care Statement: The care of this patient involved high complexity decision making to prevent further life threatening deterioration of the patient 's condition and/or to evaluate & treat vital organ system(s) failure or risk of failure. - Discharge Referral Referred to [facility] No
[2018-01-20] MEDS: diazePAM 5 MG TABLET PO PRN ×3 (08:12→21:40)
--- NOTE | 2018-01-20 10:24 | PN ---
Progress Note (short form) - Note Progress Note: Seen and examined in he ICU s/p 1. L3 partial laminectomy. 2. L4, L5, S1 laminectomies. 3. L4-L5, L5-S1 discectomies. 4. L4-L5, L5-S1 posterior lumbar interbody fusion. 5. L4-S1 postero-lateral instrumentation. 6. L4-S1 postero-lateral arthrodesis. 7. Bone marrow aspiration. 8. Bone autograft. 9. Bone allograft Currently comfortable w/o pain or numbness off oxygen w/ stable sats no flatus or BM OOB to chair this AM awaiting floor bed Current Medications Acetaminophen (Ofirmev Injection -) 1,000 mg IVPB Q8H [facility] Stop: 01/21/18 14:46 Last Admin: 01/20/18 06:10 Dose: 1,000 mg Chlorhexidine Gluconate (Hibiclens For Decolonization -) 1 applic TP HS [facility] Cyclobenzaprine HCl (Flexeril -) 10 mg PO TID [facility] Last Admin: 01/20/18 06:10 Dose: 10 mg Diazepam (Valium -) 5 mg PO Q6H PRN PRN Reason: MUSCLE SPASMS Last Admin: 01/20/18 08:12 Dose: 5 mg Fentanyl (Sublimaze Injection -) 50 mcg IVPUSH [id number] PRN PRN Reason: PAIN-PACU ORDER X 4 DOSES ONLY Gabapentin (Neurontin -) 300 mg PO TID [facility] Last Admin: 01/20/18 06:11 Dose: 300 mg Cefazolin Sodium/Dextrose (Ancef 2 Gm Premixed Ivpb -) 2 gm in 50 mls @ 100 mls /hr IVPB Q6H [facility] Stop: 01/20/18 11:29 Last Admin: 01/20/18 06:07 Dose: Not Given Lactated Ringer's (Lactated Ringers Solution) 1,000 mls @ 125 mls/hr IV ASDIR [facility] Last Admin: 01/19/18 22:23 Dose: 200 mls Morphine Sulfate (Morphine Sulfate) 2 mg IVPUSH Q4H PRN PRN Reason: PAIN LEVEL 6-10 Mupirocin (Bactroban Ointment (For Decolonization) -) 1 applic NS BID [facility] Stop: 01/25/18 09:59 Ondansetron HCl (Zofran Injection) 4 mg IVPUSH Q6H PRN PRN Reason: NAUSEA AND/OR VOMITING Pantoprazole Sodium (Protonix -) 40 mg PO BID [facility] Promethazine HCl (Phenergan Injection -) 12.5 mg IVPB Q6H PRN PRN Reason: NAUSEA-FOR RESCUE AFTER 15 MIN Vital Signs Period Temp Pulse Resp BP Sys/Brenner Pulse Ox Last 24 Hr 97.5 F-99.7 F 54-130 10-18 97-132/41-88 94-100 Intake & Output 01/17/18 01/18/18 01/19/18 01/20/18 23:59 23:59 23:59 23:59 Intake Total 600 1520 2330 Output Total 1910 300 Balance 600 1520 420 -300 Weight 104.326 kg General: awake, alert w/o distress Heent: PERRL, no JVD, anicteric sclera Pulm: CTA CV: RRR Abd: obese, SNTND, hypoactive BS Ext: WWP, trace LE edema Back: c/d/i Neuro: RAMIREZ, AOx3 CBC, BMP 01/20/18 05:30 01/20/18 05:30 All Active Problems Low back pain (Acute) s/p 1. L3 partial laminectomy. 2. L4, L5, S1 laminectomies. 3. L4-L5, L5-S1 discectomies. 4. L4-L5, L5-S1 posterior lumbar interbody fusion. 5. L4-S1 postero-lateral instrumentation. 6. L4-S1 postero- lateral arthrodesis. 7. Bone marrow aspiration. 8. Bone autograft. 9. Bone allograft - Incntive damaris - PT/OT - add bowel regimen - pain control prn - advance diet once passing gas - cont IVF, d/c once taking PO diet - d/c iglesias once walking - SCDs - stable for floor transfer Vanessa RESENDIZ Pulm/CCM CCT: 35m
[2018-01-20] MEDS: MORPHINE SULFATE 2 MG/ML VIAL IVPUSH PRN ×2 (10:48→19:59)
[2018-01-20] MEDS: PANTOPRAZOLE 40 MG TABLET (FP) PO SCH ×2 (10:54→21:39)
[2018-01-20] MEDS: LACTATED RINGERS SOLUTION 1,000 ML IV SCH ×3 (13:10→23:17)
[2018-01-20] MEDS: DOCUSATE SODIUM 100 MG CAPSULE (FP) PO SCH ×2 (13:13→21:40)
[2018-01-20] MEDS: MUPIROCIN 2% TOPICAL OINTMENT FOR DECOLONIZATION NS SCH ×2 (13:13→21:41)
[2018-01-20] MEDS ORDERED: HYDROmorphone HCL CARPU-JECT 2 MG/1 ML DISP.SYRIN IVPUSH ONE (13:22)
[2018-01-20] MEDS ORDERED: morphine SULFATE 4 MG/ML VIAL ONE (13:24)
[2018-01-20] MEDS ORDERED: morphine CARPU-JECT 4 MG/1 ML DISP.SYRIN IVPUSH ONE (13:25)
[2018-01-20] MEDS ORDERED: MORPHINE SULFATE 2 MG/ML VIAL IVPUSH ONE (13:25)
--- NOTE | 2018-01-20 16:48 | PN ---
Progress Note (short form) - Note Progress Note: 47F doing well s/p L3-S1 laminectomies; L4-L5, & L5-S1 PLIF, L4-S1 PISF POD #1. Pain well controlled. No acute events overnight. Pt. denies any positional or persistent headaches, chest pain, shortness of breath, nausea, vomiting, chills, sweats. Out of bed to chair. (+) Joy; (-) Flatus; (-) BM. Tolerating clear liquid diet. All labs, vitals, I&O reviewed. PE: AAO x 3, NAD. L-Spine: Dressing C/D/I. Drain intact & in place. Output: cc/shift. B/L LE Motor & Sensory Exam: Unchanged from baseline. 47F doing well s/p L3-S1 laminectomies; L4-L5, & L5-S1 PLIF, L4-S1 PISF POD #1. -Pain control: per anaesthesia team; recommend PRODUCTION CORRUGATOR. -DVT PPx: - Mechanical only: LEOPOLDO's, SCD's. -Incentive spirometry q15min. -PT/OT/Rehab, OOB. -WBAT B/L LE. -q4h B/L LE NV checks. -Clear liquid diet; advance as tolerated. -f/u AM labs. -f/u drain output. -d/c Joy catheter when patient ambulating comfortably. -Care per ICU & medical hospitalist team. -Discharge planning: f/u 7-10 days after discharge at [facility] office; call for appointment; . -Will follow. Syed Nelson MD (Orthopaedic Surgery).
--- NOTE | 2018-01-20 16:58 | PN ---
Progress Note (short form) - Note Progress Note: Anesthesia post op note, POD#1 S/P Lumbar laminectomy. VSS. C/O pian when trying to move. No apparent post anesthesia complications. Signed off.
[2018-01-20] MEDS: CHLORHEXIDINE GLUCONATE 4% CLEANSER FOR DECOLONIZATION TP SCH (21:40)
[2018-01-21] MEDS: MORPHINE SULFATE 2 MG/ML VIAL IVPUSH PRN ×3 (02:08→21:36)
[2018-01-21] MEDS ORDERED: MORPHINE SULFATE 2 MG/ML VIAL IVPUSH ONE (03:06)
[2018-01-21] MEDS: diazePAM 5 MG TABLET PO PRN ×3 (03:08→21:40)
[2018-01-21] MEDS: LACTATED RINGERS SOLUTION 1,000 ML IV SCH ×3 (03:13→21:23)
[2018-01-21 06:28] LABS: HEMATOCRIT 29.9 % (32.4-45.2); HEMOGLOBIN 9.7 GM/dL (10.7-15.3); MCH 26.2 pg (25.7-33.7); MCHC 32.4 g/dl (32.0-36.0); MEAN PLT VOLUME 8.5 fl (7.5-11.1); PLATELET COUNT 198 K/MM3 (134-434); RBC 3.69 M/mm3 (3.60-5.2); RDW 16.4 % (11.6-15.6); WHITE BLOOD COUNT 13.3 K/mm3 (4.0-10.0)
[2018-01-21] MEDS: ACETAMINOPHEN 1000 MG/100 ML VIAL (NON FORMULARY) IVPB SCH ×2 (06:31→13:59)
[2018-01-21] MEDS: GABAPENTIN 300 MG CAPSULE (FP) PO SCH ×3 (06:32→21:22)
[2018-01-21] MEDS: DOCUSATE SODIUM 100 MG CAPSULE (FP) PO SCH ×3 (06:32→21:22)
[2018-01-21] MEDS: CYCLOBENZAPRINE HCL 10 MG TABLET (FP) PO SCH ×3 (06:32→21:22)
[2018-01-21 06:45] LABS: ALBUMIN 2.5 g/dl (3.4-5.0); ANION GAP 3 MMOL/L (8-16); BLOOD UREA NITROGEN 6 mg/dL (7-18); CALCIUM 8.6 mg/dL (8.5-10.1); CHLORIDE 106 mmol/L (98-107); CO2 30 mmol/L (21-32); GLUCOSE,RANDOM 107 mg/dL (74-106); SODIUM 139 mmol/L (136-145)
[2018-01-21 06:48] LABS: ALK PHOS 71 U/L (45-117); BILIRUBIN,TOTAL 0.5 mg/dL (0.2-1.0); CREATININE 0.6 mg/dL (0.55-1.02); SGOT/AST 106 U/L (15-37); SGPT/ALT 71 U/L (12-78); TOT PROT 5.4 g/dl (6.4-8.2)
--- NOTE | 2018-01-21 08:34 | PN ---
Teaching Attending Note Name of Resident: David Diaz ATTENDING PHYSICIAN STATEMENT I saw and evaluated the patient. I reviewed the resident's note and discussed the case with the resident. I agree with the resident's findings and plan as documented. SUBJECTIVE:c/o difficulty moving his LLE since the surgery. sensation intact. pain increasing but controlled with pain medication. denies Cp, SOB, fever, chills, N/V/C/D OBJECTIVE: Last Vital Signs Temp Pulse Resp BP Pulse Ox 98.6 F 115 H 22 127/70 94 L 01/21/18 06:00 01/21/18 06:00 01/21/18 06:00 01/21/18 06:00 01/20/18 21:18 General NAD, tearful during exam CV S1 S2 RRR no murmur/rub/gallop Extremiites sensation grossly intact B/L LE. good plantar/dorsal strength intact. strength LLE 2/5 RLE 3/5 ASSESSMENT AND PLAN: 47 yo F with PMhx of chronic back pain, Lumbar disc disease (reportedly since injury in 04/2016), followed by Dr. Nelson (spine), and Dr Thomas (pain management) comes with worsening back pain and lumbar radiculopathy for last 2 days. 1. Acute severe lumbar spinal stenosis with neurogenic claudication- L3 partial laminectomy. 2. L4, L5, S1 laminectomies. 3. L4-L5, L5-S1 discectomies. 4. L4 -L5, L5-S1 posterior lumbar interbody fusion. 5. L4-S1 postero-lateral instrumentation. 6. L4-S1 postero-lateral arthrodesis. 7. Bone marrow aspiration. 8. Bone autograft. 9. Bone allograft on 01/19. tolerated surgery well. perioperative Abx. NPO until flatus. pain now controlled with medications. now increased to 4mg. will cont prn. RN to notify ortho of patients complaints for weakness and for re-assurance no intervention at this time. encourage pt to participate with PT. incentive spirometer. iglesias until ambulating. further recommendations per ortho. 2. Normocytic anemia due to acute blood loss anemia- EBV 650cc with cellsaver and hemovac in place. will monitor. no active bleeding at this time 3. leukcytosis- likely stress induced from surgery. on prophylatic/ perioperative abx 4. Obesity- BMI 38. intentional 20lb weight loss through diet. dietary eval to support dietary changes 5. Recent UTI- completed abx treatment 6. DVT ppx- SCD. hold pharmacologic anticoagulation 7. stable for floors 8. pt will likely require MAURICIO on discharge. The care of this patient involved high complexity decision making to prevent further life threatening deterioration of the patient's condition and/or to evaluate & treat vital organ system(s) failure or risk of failure. 36 minutes
--- NOTE | 2018-01-21 08:38 | PN ---
Progress Note (short form) - Note Progress Note: Seen and examined in the ICU OOB to chair for ~30m yesterday c/o cont back pain, increased morphine 2->4mg with mild improvement placed on clear diet awaiting floor bed Current Medications Acetaminophen (Ofirmev Injection -) 1,000 mg IVPB Q8H [facility] Stop: 01/21/18 14:46 Last Admin: 01/21/18 06:31 Dose: 1,000 mg Chlorhexidine Gluconate (Hibiclens For Decolonization -) 1 applic TP HS [facility] Last Admin: 01/20/18 21:40 Dose: 1 applic Cyclobenzaprine HCl (Flexeril -) 10 mg PO TID [facility] Last Admin: 01/21/18 06:32 Dose: 10 mg Diazepam (Valium -) 5 mg PO Q6H PRN PRN Reason: MUSCLE SPASMS Last Admin: 01/21/18 03:08 Dose: 5 mg Docusate Sodium (Colace -) 100 mg PO TID [facility] Last Admin: 01/21/18 06:32 Dose: 100 mg Fentanyl (Sublimaze Injection -) 50 mcg IVPUSH [id number] PRN PRN Reason: PAIN-PACU ORDER X 4 DOSES ONLY Gabapentin (Neurontin -) 300 mg PO TID [facility] Last Admin: 01/21/18 06:32 Dose: 300 mg Lactated Ringer's (Lactated Ringers Solution) 1,000 mls @ 125 mls/hr IV ASDIR [facility] Last Admin: 01/21/18 03:13 Dose: 125 mls/hr Morphine Sulfate (Morphine Sulfate) 4 mg IVPUSH Q4H PRN PRN Reason: PAIN LEVEL 6-10 Mupirocin (Bactroban Ointment (For Decolonization) -) 1 applic NS BID [facility] Stop: 01/25/18 09:59 Last Admin: 01/20/18 21:41 Dose: 1 applic Ondansetron HCl (Zofran Injection) 4 mg IVPUSH Q6H PRN PRN Reason: NAUSEA AND/OR VOMITING Pantoprazole Sodium (Protonix -) 40 mg PO BID [facility] Last Admin: 01/20/18 21:39 Dose: 40 mg Promethazine HCl (Phenergan Injection -) 12.5 mg IVPB Q6H PRN PRN Reason: NAUSEA-FOR RESCUE AFTER 15 MIN Senna (Senna -) 2 tab PO HS PRN PRN Reason: CONSTIPATION Vital Signs Period Temp Pulse Resp BP Sys/Brenner Pulse Ox Last 24 Hr 98.1 F-99.2 F 98-122 16-22 82-127/47-80 94-100 Intake & Output 01/18/18 01/19/18 01/20/18 01/21/18 23:59 23:59 23:59 23:59 Intake Total 1520 2330 1790 1895 Output Total 1910 4155 1880 Balance 1520 420 -2365 15 Weight 110.28 kg General: awake, alert w/o distress Heent: PERRL, no JVD, anicteric sclera Pulm: CTA CV: RRR Abd: obese, SNTND, hypoactive BS Ext: WWP, trace LE edema Back: c/d/i Neuro: RAMIREZ, moves RLE >LLE, AOx3 CBC, BMP 01/21/18 05:30 01/21/18 05:30 All Active Problems Low back pain (Acute) s/p 1. L3 partial laminectomy. 2. L4, L5, S1 laminectomies. 3. L4-L5, L5-S1 discectomies. 4. L4-L5, L5-S1 posterior lumbar interbody fusion. 5. L4-S1 postero-lateral instrumentation. 6. L4-S1 postero- lateral arthrodesis. 7. Bone marrow aspiration. 8. Bone autograft. 9. Bone allograft - Incentive damaris - PT/OT - cont bowel regimen - pain control prn MSO4: 4mg prn - advance diet as tolerated - cont IVF - d/c iglesias once walking - SCDs - stable for floor transfer Boerem ACNP Pulm/CCM CCT: 35m
[2018-01-21] MEDS: MUPIROCIN 2% TOPICAL OINTMENT FOR DECOLONIZATION NS SCH ×2 (09:15→21:38)
[2018-01-21] MEDS: PANTOPRAZOLE 40 MG TABLET (FP) PO SCH ×2 (09:15→21:22)
--- NOTE | 2018-01-21 09:15 | PN ---
Physical Exam: SUBJECTIVE: Patient seen and examined this AM. She is currently complaining of post-op pain when she moves, though she says her leg pain is much better than prior to surgery. POD2. No flatus or BM yet. Says she is tolerating clear liquids well. OBJECTIVE: Vital Signs Period Temp Pulse Resp BP Sys/Brenner Pulse Ox Last 24 Hr 98.1 F-99.2 F 98-122 16-22 82-127/47-80 94-98 GENERAL: A&O, No acute distress currently HEAD: Normocephalic, atraumatic. EYES: PERRL, no scleral icterus EARS, NOSE, THROAT: oropharynx clear without exudates. Moist mucous membranes. NECK: supple without lymphadenopathy LUNGS: CTA b/l, no crackles or wheezes HEART: Regular rate and rhythm, normal S1 and S2 without murmur ABDOMEN: Soft, nontender to palpation, hypoactive bowel sounds MUSCULOSKELETAL: Dressing clean, dry and in tact posteriorly POD 2, mild tenderness to palpation in lumbar region. Motion and strength limited due to pain. EXTREMITIES: 2+ pulses, warm, well-perfused. NEUROLOGICAL: Cranial nerves II-XII grossly intact. Neurosensory in tact in b/ l LE PSYCHIATRIC: Cooperative. Good eye contact. Appropriate mood and affect today SKIN: Warm, dry, no rashes or lesions noted. Laboratory Results - last 24 hr 01/21/18 01/21/18 05:30 05:30 WBC 13.3 H RBC 3.69 Hgb 9.7 L Hct 29.9 L MCV 81.0 MCH 26.2 MCHC 32.4 RDW 16.4 H Plt Count 198 MPV 8.5 Sodium 139 Potassium 4.0 Chloride 106 Carbon Dioxide 30 Anion Gap 3 L BUN 6 L Creatinine 0.6 Creat Clearance w eGFR > 60 Random Glucose 107 H Calcium 8.6 Total Bilirubin 0.5 AST 106 H ALT 71 Alkaline Phosphatase 71 Total Protein 5.4 L Albumin 2.5 L Active Medications Generic Name Dose Route Start Last Admin Trade Name Freq PRN Reason Stop Dose Admin Acetaminophen 1,000 mg 01/20/18 06:45 01/21/18 06:31 Ofirmev Injection - IVPB 01/21/18 14:46 1,000 mg Q8H SANDRA Administration Chlorhexidine Gluconate 1 applic 01/20/18 22:00 01/20/18 21:40 Hibiclens For Decolonization - TP 1 applic HS SANDRA Administration Cyclobenzaprine HCl 10 mg 01/20/18 06:00 01/21/18 06:32 Flexeril - PO 10 mg TID SANDRA Administration Diazepam 5 mg 01/19/18 22:52 01/21/18 03:08 Valium - PO 5 mg Q6H PRN Administration MUSCLE SPASMS Docusate Sodium 100 mg 01/20/18 14:00 01/21/18 06:32 Colace - PO 100 mg TID SANDRA Administration Fentanyl 50 mcg 01/19/18 22:52 Sublimaze Injection - IVPUSH [id number] PRN PAIN-PACU ORDER X 4 DOSES ONLY Gabapentin 300 mg 01/20/18 06:00 01/21/18 06:32 Neurontin - PO 300 mg TID SANDRA Administration Lactated Ringer's 1,000 mls @ 125 mls/hr 01/19/18 22:52 01/21/18 03:13 Lactated Ringers Solution IV 125 mls/hr ASDIR SANDRA Administration Morphine Sulfate 4 mg 01/21/18 03:05 Morphine Sulfate IVPUSH Q4H PRN PAIN LEVEL 6-10 Mupirocin 1 applic 01/20/18 10:00 01/20/18 21:41 Bactroban Ointment (For Decolonization) - NS 01/25/18 09:59 1 applic BID [facility]DRA Administration Ondansetron HCl 4 mg 01/19/18 22:52 Zofran Injection IVPUSH Q6H PRN NAUSEA AND/OR VOMITING Pantoprazole Sodium 40 mg 01/20/18 10:00 01/20/18 21:39 Protonix - PO 40 mg BID [facility]A Administration Promethazine HCl 12.5 mg 01/19/18 22:52 Phenergan Injection - IVPB Q6H PRN NAUSEA-FOR RESCUE AFTER 15 MIN Senna 2 tab 01/20/18 10:25 Senna - PO HS PRN CONSTIPATION ASSESSMENT/PLAN: 47 yo female s/p L3-S1 laminectomies; L4-L5, & L5-S1 PLIF, L4-S1 PISF. POD 2. Acute on Chronic Low back pain with radiculopathy to left leg, s/p laminectomy with fusions. POD 2 -Neurontin 300mg PO TID, Flexeril 10 mg PO TID, Valium 5 mg PO Q6 PRN, Morphine 4mg IV Q4 PRN -No flatus or bm post op, otherwise tolerating clear liquids well -Incentive spirometry -OOB to chair yesterday tolerated well -Can be transferred out of ICU -H/H decrease noted overnight, likely dilutional due to post op fluids, less likely iron deficiency but will order iron studies -Leukocytosis likely reactive secondary to surgical intervention UTI -Completed treatment with macrobid -not currently complaining of dysuria, hematuria DVT Prophylaxis -Mechanical only until okayed by surgery FEN -Fluids: LR @ 125 cc.hr -Electrolytes: No electrolyte abnormalities -Nutrition: Clear liquids Disposition Stable to return to Med/Surg Visit type - Emergency Visit Emergency Visit: Yes ED Registration Date: 01/10/18 Care time: The patient presented to the Emergency Department on the above date and was hospitalized for further evaluation of their emergent condition. - New Patient This patient is new to me today: No - Critical Care Critical Care patient: Yes Total Critical Care Time (in minutes): 35 Critical Care Statement: The care of this patient involved high complexity decision making to prevent further life threatening deterioration of the patient 's condition and/or to evaluate & treat vital organ system(s) failure or risk of failure.
[2018-01-21] MEDS ORDERED: PT OWN MED DRAWER 7, Y5N ONE (16:57)
[2018-01-21] MEDS: CHLORHEXIDINE GLUCONATE 4% CLEANSER FOR DECOLONIZATION TP SCH (21:22)
[2018-01-21] MEDS: SENNOSIDES 8.6MG TABLET (FP) PO PRN (21:38)
[2018-01-22] MEDS: MORPHINE SULFATE 2 MG/ML VIAL IVPUSH PRN ×4 (01:50→20:46)
[2018-01-22] MEDS: diazePAM 5 MG TABLET PO PRN (05:08)
[2018-01-22] MEDS: GABAPENTIN 300 MG CAPSULE (FP) PO SCH ×3 (06:15→21:34)
[2018-01-22] MEDS: DOCUSATE SODIUM 100 MG CAPSULE (FP) PO SCH ×3 (06:15→21:33)
[2018-01-22] MEDS: CYCLOBENZAPRINE HCL 10 MG TABLET (FP) PO SCH ×3 (06:15→21:33)
[2018-01-22 06:53] LABS: HEMOGLOBIN 9.2 GM/dL (10.7-15.3); MCH 26.4 pg (25.7-33.7); MEAN CELL VOLUME 80.2 fl (80-96); MEAN PLT VOLUME 9.2 fl (7.5-11.1); PLATELET COUNT 185 K/MM3 (134-434); RDW 16.5 % (11.6-15.6); WHITE BLOOD COUNT 10.8 K/mm3 (4.0-10.0)
[2018-01-22 07:10] LABS: ANION GAP 5 MMOL/L (8-16); BLOOD UREA NITROGEN 6 mg/dL (7-18); CALCIUM 8.2 mg/dL (8.5-10.1); CHLORIDE 104 mmol/L (98-107); CO2 30 mmol/L (21-32); CREATININE 0.5 mg/dL (0.55-1.02); GLUCOSE,RANDOM 89 mg/dL (74-106); MAGNESIUM 1.7 mg/dL (1.8-2.4); PHOSPHOROUS 3.5 mg/dL (2.5-4.9); POTASSIUM 3.8 mmol/L (3.5-5.1); SODIUM 139 mmol/L (136-145)
[2018-01-22] MEDS ORDERED: MAGNESIUM OXIDE 400 MG TABLET (FP) PO ONE (07:50)
[2018-01-22] MEDS ORDERED: ACETAMINOPHEN 1000 MG/100 ML VIAL (NON FORMULARY) IVPB ONE (07:51)
[2018-01-22] MEDS ORDERED: morphine SULFATE 4 MG/ML VIAL IVPUSH ONE (07:57)
[2018-01-22] MEDS ORDERED: MAGNESIUM SULF 50% (8.12 MEQ/2 ML-1 GM VIAL) IVPB ONE (08:15)
--- NOTE | 2018-01-22 08:48 | PN ---
Physical Exam: SUBJECTIVE: Patient seen and examined this AM. She says that she was having severe pain earlier that is improved now with extra pain medications. She says she was out of bed yesterday to chair and tolerated well but that the mornings have been much worse. Denies fevers, chills, n/v. OBJECTIVE: Vital Signs Period Temp Pulse Resp BP Sys/Brenner Pulse Ox Last 24 Hr 98 F-98.5 F 99-122 16-21 96-129/59-79 93-96 GENERAL: A&O, No acute distress currently HEAD: Normocephalic, atraumatic. EYES: PERRL, no scleral icterus EARS, NOSE, THROAT: oropharynx clear without exudates. Moist mucous membranes. NECK: supple without lymphadenopathy LUNGS: CTA b/l, no crackles or wheezes HEART: Regular rate and rhythm, normal S1 and S2 without murmur ABDOMEN: Soft, nontender to palpation, hypoactive bowel sounds MUSCULOSKELETAL: Dressing clean, dry and in tact posteriorly, removed today, tenderness to palpation in lumbar region. Motion and strength very limited due to pain. EXTREMITIES: 2+ pulses, warm, well-perfused. NEUROLOGICAL: Cranial nerves II-XII grossly intact. Neurosensory in tact in b/ l LE PSYCHIATRIC: Cooperative. Good eye contact. Appropriate mood and affect today SKIN: Warm, dry, no rashes or lesions noted. Laboratory Results - last 24 hr 01/21/18 01/22/18 01/22/18 12:22 05:30 05:30 WBC 10.8 H RBC 3.50 L Hgb 9.2 L Hct 28.0 L MCV 80.2 MCH 26.4 MCHC 33.0 RDW 16.5 H Plt Count 185 MPV 9.2 Sodium 139 Potassium 3.8 Chloride 104 Carbon Dioxide 30 Anion Gap 5 L BUN 6 L Creatinine 0.5 L Creat Clearance w eGFR > 60 POC Glucometer [phone] Random Glucose 89 Calcium 8.2 L Phosphorus 3.5 Magnesium 1.7 L Active Medications Generic Name Dose Route Start Last Admin Trade Name Freq PRN Reason Stop Dose Admin Chlorhexidine Gluconate 1 applic 01/20/18 22:00 01/21/18 21:22 Hibiclens For Decolonization - TP 1 applic HS SANDRA Administration Cyclobenzaprine HCl 10 mg 01/20/18 06:00 01/22/18 06:15 Flexeril - PO 10 mg TID SANDRA Administration Diazepam 5 mg 01/19/18 22:52 01/22/18 05:08 Valium - PO 5 mg Q6H PRN Administration MUSCLE SPASMS Docusate Sodium 100 mg 01/20/18 14:00 01/22/18 06:15 Colace - PO 100 mg TID SANDRA Administration Fentanyl 50 mcg 01/19/18 22:52 Sublimaze Injection - IVPUSH [id number] PRN PAIN-PACU ORDER X 4 DOSES ONLY Gabapentin 300 mg 01/20/18 06:00 01/22/18 06:15 Neurontin - PO 300 mg TID SANDRA Administration Lactated Ringer's 1,000 mls @ 100 mls/hr 01/21/18 10:46 01/21/18 21:23 Lactated Ringers Solution IV 100 mls/hr ASDIR SANDRA Administration Morphine Sulfate 4 mg 01/21/18 03:05 01/22/18 06:15 Morphine Sulfate IVPUSH 4 mg Q4H PRN Administration PAIN LEVEL 6-10 Mupirocin 1 applic 01/20/18 10:00 01/21/18 21:38 Bactroban Ointment (For Decolonization) - NS 01/25/18 09:59 1 applic BID SANDRA Administration Ondansetron HCl 4 mg 01/19/18 22:52 Zofran Injection IVPUSH Q6H PRN NAUSEA AND/OR VOMITING Pantoprazole Sodium 40 mg 01/20/18 10:00 01/21/18 21:22 Protonix - PO 40 mg BID SANDRA Administration Promethazine HCl 12.5 mg 01/19/18 22:52 Phenergan Injection - IVPB Q6H PRN NAUSEA-FOR RESCUE AFTER 15 MIN Senna 2 tab 01/20/18 10:25 01/21/18 21:38 Senna - PO 2 tab HS PRN Administration CONSTIPATION ASSESSMENT/PLAN: 47 yo female s/p L3-S1 laminectomies; L4-L5, & L5-S1 PLIF, L4-S1 PISF. POD 2. Acute on Chronic Low back pain with radiculopathy to left leg, s/p laminectomy with fusions. POD 2 -Neurontin 300mg PO TID, Flexeril 10 mg PO TID, Valium 5 mg PO Q6 PRN, Morphine 4mg IV Q4 PRN -Advanced to regular diet, though stating she is not very hungry at this time -Drain removed by surgery today -Incentive spirometry -OOB to chair yesterday tolerated well -Can be transferred out of ICU -Leukocytosis likely reactive secondary to surgical intervention -Pt requesting more pain meds than preop, will start Oxycodone SR 10 mg PO BID to decrease threshold in hopes of requiring less PRN meds UTI -Completed treatment with macrobid -not currently complaining of dysuria, hematuria DVT Prophylaxis -Mechanical only until okayed by surgery FEN -Fluids: Stopped today as pt on regular diet -Electrolytes: No electrolyte abnormalities -Nutrition: Regular diet Disposition Stable to return to Med/Surg Visit type - Emergency Visit Emergency Visit: Yes ED Registration Date: 01/10/18 Care time: The patient presented to the Emergency Department on the above date and was hospitalized for further evaluation of their emergent condition. - New Patient This patient is new to me today: No - Critical Care Critical Care patient: Yes Total Critical Care Time (in minutes): 40 Critical Care Statement: The care of this patient involved high complexity decision making to prevent further life threatening deterioration of the patient 's condition and/or to evaluate & treat vital organ system(s) failure or risk of failure.
--- NOTE | 2018-01-22 09:57 | PN ---
Progress Note (short form) - Note Progress Note: 47F doing well s/p L3-S1 laminectomies; L4-L5, & L5-S1 PLIF, L4-S1 PISF POD #1. Pain well controlled. No acute events overnight. Pt. denies any positional or persistent headaches, chest pain, shortness of breath, nausea, vomiting, chills, sweats. Out of bed to chair. (+) Joy; (-) Flatus; (-) BM. Tolerating clear liquid diet. All labs, vitals, I&O reviewed. PE: AAO x 3, NAD. L-Spine: Dressing C/D/I. Drain intact & in place. Output: cc/shift. B/L LE Motor & Sensory Exam: Unchanged from baseline. 47F doing well s/p L3-S1 laminectomies; L4-L5, & L5-S1 PLIF, L4-S1 PISF POD #1. -Pain control: per anaesthesia team; recommend DIGITAL ACCOUNT DIRECTOR. -DVT PPx: - Mechanical only: LEOPOLDO's, SCD's. -Incentive spirometry q15min. -PT/OT/Rehab, OOB. -WBAT B/L LE. -q4h B/L LE NV checks. -Clear liquid diet; advance as tolerated. -f/u AM labs. -f/u drain output. -d/c Joy catheter when patient ambulating comfortably. -Care per ICU & medical hospitalist team. -Discharge planning: f/u 7-10 days [address] discharge at [facility] office; call for appointment; . -Will follow. Syed Nelson MD (Orthopaedic Surgery).
[2018-01-22] MEDS: MUPIROCIN 2% TOPICAL OINTMENT FOR DECOLONIZATION NS SCH ×2 (11:06→22:37)
--- NOTE | 2018-01-22 11:08 | PN ---
Teaching Attending Note Name of Resident: David Diaz ATTENDING PHYSICIAN STATEMENT I saw and evaluated the patient. I reviewed the resident's note and discussed the case with the resident. I agree with the resident's findings and plan as documented. SUBJECTIVE:c/o pain states that medication is taking the edge off but remains in significant pain in between dosing. dawson CP, SOB, fever, chills, N/V/C/D OBJECTIVE: Last Vital Signs Temp Pulse Resp BP Pulse Ox 98.4 F 111 H 15 113/68 96 01/22/18 10:00 01/22/18 10:00 01/22/18 10:00 01/22/18 10:00 01/21/18 22:00 General NAD ASSESSMENT AND PLAN: 47 yo F with PMhx of chronic back pain, Lumbar disc disease (reportedly since injury in 04/2016), followed by Dr. Nelson (spine), and Dr Thomas (pain management) comes with worsening back pain and lumbar radiculopathy for last 2 days. 1. Acute severe lumbar spinal stenosis with neurogenic claudication- L3 partial laminectomy. 2. L4, L5, S1 laminectomies. 3. L4-L5, L5-S1 discectomies. 4. L4 -L5, L5-S1 posterior lumbar interbody fusion. 5. L4-S1 postero-lateral instrumentation. 6. L4-S1 postero-lateral arthrodesis. 7. Bone marrow aspiration. 8. Bone autograft. 9. Bone allograft on 01/19. tolerated surgery well. perioperative Abx. tolerating diet. will start long acting oxy 10mg BID to lower overall pain threshold. PT, incentive spirometer. can d/c iglesias once ambulating. further recommendations per ortho. 2. Normocytic anemia due to acute blood loss anemia- EBV 650cc with cellsaver. hemovac removed. Hgb is stabilizing. no active bleeding at this time 3. leukcytosis- likely stress induced from surgery. trending down on prophylatic /perioperative abx 4. Obesity- BMI 38. intentional 20lb weight loss through diet. dietary eval to support dietary changes 5. Recent UTI- completed abx treatment 6. DVT ppx- SCD. hold pharmacologic anticoagulation 7. stable for floors 8. medicallly optimized at this time. awaiting MAURICIO placement The care of this patient involved high complexity decision making to prevent further life threatening deterioration of the patient's condition and/or to evaluate & treat vital organ system(s) failure or risk of failure. 34 minutes
[2018-01-22] MEDS: PANTOPRAZOLE 40 MG TABLET (FP) PO SCH ×2 (11:11→21:33)
[2018-01-22] MEDS: KETOROLAC TROMETHAMINE 30 MG/1 ML VIAL IVPUSH SCH ×2 (11:14→20:53)
[2018-01-22] MEDS: oxyCODONE HCL 10 MG SUSTAINED ACTING TABLET PO SCH ×2 (12:37→22:38)
--- NOTE | 2018-01-22 12:39 | PN ---
Teaching Attending Note Name of Resident: Gloria Song ATTENDING PHYSICIAN STATEMENT I saw and evaluated the patient. I reviewed the resident's note and discussed the case with the resident. I agree with the resident's findings and plan as documented. SUBJECTIVE: Patient seen and examined in the ICU. Awake and alert. (+) LBP but has not been taking PO pain meds. No CP or SOB. Intake & Output 01/19/18 01/20/18 01/21/18 01/22/18 23:59 23:59 23:59 23:59 Intake Total 2330 1790 3245 1242 Output Total 1910 4155 5831 550 Balance 503 -4201 -1200 694 Weight 243 lb 2 oz 245 lb 6 oz Last Vital Signs Temp Pulse Resp BP Pulse Ox 98.4 F 111 H 15 113/68 96 01/22/18 10:00 01/22/18 10:00 01/22/18 10:00 01/22/18 10:00 01/21/18 22:00 Active Medications Chlorhexidine Gluconate (Hibiclens For Decolonization -) 1 applic TP HS [facility] Last Admin: 01/21/18 21:22 Dose: 1 applic Cyclobenzaprine HCl (Flexeril -) 10 mg PO TID [facility] Last Admin: 01/22/18 06:15 Dose: 10 mg Diazepam (Valium -) 5 mg PO Q6H PRN PRN Reason: MUSCLE SPASMS Last Admin: 01/22/18 05:08 Dose: 5 mg Docusate Sodium (Colace -) 100 mg PO TID [facility] Last Admin: 01/22/18 06:15 Dose: 100 mg Fentanyl (Sublimaze Injection -) 50 mcg IVPUSH [id number] PRN PRN Reason: PAIN-PACU ORDER X 4 DOSES ONLY Gabapentin (Neurontin -) 300 mg PO TID [facility] Last Admin: 01/22/18 06:15 Dose: 300 mg Ketorolac Tromethamine (Toradol Injection -) 30 mg IVPUSH Q8H-IV [facility] Stop: 01/27/18 09:59 Last Admin: 01/22/18 11:14 Dose: 30 mg Morphine Sulfate (Morphine Sulfate) 4 mg IVPUSH Q4H PRN PRN Reason: PAIN LEVEL 6-10 Last Admin: 01/22/18 06:15 Dose: 4 mg Mupirocin (Bactroban Ointment (For Decolonization) -) 1 applic NS BID [facility] Stop: 01/25/18 09:59 Last Admin: 01/22/18 11:06 Dose: 1 applic Ondansetron HCl (Zofran Injection) 4 mg IVPUSH Q6H PRN PRN Reason: NAUSEA AND/OR VOMITING Oxycodone HCl (Oxycontin -) 10 mg PO BID [facility] Pantoprazole Sodium (Protonix -) 40 mg PO BID [facility] Last Admin: 01/22/18 11:11 Dose: 40 mg Promethazine HCl (Phenergan Injection -) 12.5 mg IVPB Q6H PRN PRN Reason: NAUSEA-FOR RESCUE AFTER 15 MIN Senna (Senna -) 2 tab PO HS PRN PRN Reason: CONSTIPATION Last Admin: 01/21/18 21:38 Dose: 2 tab General: awake, alert w/o distress Heent: PERRL, no JVD, anicteric sclera Pulm: CTA CV: RRR Abd: obese, Soft, NT, ND, (+) BS Ext: WWP, trace LE edema Back: clean Neuro: AOx3 Laboratory Results - last 24 hr 01/21/18 01/22/18 01/22/18 12:22 05:30 05:30 WBC 10.8 H RBC 3.50 L Hgb 9.2 L Hct 28.0 L MCV 80.2 MCH 26.4 MCHC 33.0 RDW 16.5 H Plt Count 185 MPV 9.2 Sodium 139 Potassium 3.8 Chloride 104 Carbon Dioxide 30 Anion Gap 5 L BUN 6 L Creatinine 0.5 L Creat Clearance w eGFR > 60 POC Glucometer [phone] Random Glucose 89 Calcium 8.2 L Phosphorus 3.5 Magnesium 1.7 L IMP: S/P L3 partial laminectomy L4, L5, S1 laminectomies L4-L5, L5-S1 discectomies L4-L5, L5-S1 posterior lumbar interbody fusion L4-S1 postero-lateral instrumentation L4-S1 postero-lateral arthrodesis Bone marrow aspiration Bone autograft Bone allograft PLAN: Trial of Percocet Incentive Spirometry O2 as needed VTE prophylaxis PT/OT Bowel regimen PO as tolerated Floor Dr Allen
--- NOTE | 2018-01-22 15:24 | PN ---
Physical Exam: SUBJECTIVE: Patient seen and examined this AM. Pt states she was in 10/10 pain throughout her back overnight. She was administered 4 mg IV morphine and 5 mg PO Valium around 5 am this morning, which the pt states still did not relieve her pain. We have since provided additional 4 mg IV morphine and 10 mg PO oxycontin per admitting team. Pt states pain is now an 8, and she has been able to walk a few steps with PT and sit in a chair. She is on a full diet, but has not tolerated much PO intake yet. Her iglesias catheter has been draining yellow urine with no issues. She has passed flatus all night with urgency for BM, but no BM passed yet. She has been afebrile and vitals are stable. OBJECTIVE: Vital Signs Period Temp Pulse Resp BP Sys/Brenner Pulse Ox Last 24 Hr 98 F-98.5 F 100-117 15-20 100-129/59-85 93-96 GENERAL: The patient is awake, alert, and fully oriented, in no acute distress. Pt tearful when asked about pain level. HEAD: Normal with no signs of trauma. EYES: Extraocular movements intact, sclera anicteric, conjunctiva clear. No ptosis. ENT: External ears normal, nares patent, oropharynx clear without exudates, moist mucous membranes. NECK: Trachea midline, full range of motion, supple. LUNGS: Breath sounds equal, clear to auscultation bilaterally, no wheezes, no crackles, no accessory muscle use. HEART: Regular rate and rhythm, S1, S2 without murmur, rub or gallop. ABDOMEN: Soft, nontender, nondistended, normoactive bowel sounds, no guarding, no rebound, no hepatosplenomegaly, no masses. EXTREMITIES: 2+ pulses, warm, well-perfused, no pitting edema. SCDs in place. Pt has Davol drain with red serosanguineous fluid. NEUROLOGICAL: Cranial nerves II through XII grossly intact. Strength and sensation in b/l UE and LE WNL. Normal speech, gait not observed. PSYCH: Normal mood. Tearful affect when describing pain. SKIN: Warm, dry, normal turgor, no rashes or lesions noted. Laboratory Results - last 24 hr 01/22/18 01/22/18 05:30 05:30 WBC 10.8 H RBC 3.50 L Hgb 9.2 L Hct 28.0 L MCV 80.2 MCH 26.4 MCHC 33.0 RDW 16.5 H Plt Count 185 MPV 9.2 Sodium 139 Potassium 3.8 Chloride 104 Carbon Dioxide 30 Anion Gap 5 L BUN 6 L Creatinine 0.5 L Creat Clearance w eGFR > 60 Random Glucose 89 Calcium 8.2 L Phosphorus 3.5 Magnesium 1.7 L Active Medications Generic Name Dose Route Start Last Admin Trade Name Freq PRN Reason Stop Dose Admin Chlorhexidine Gluconate 1 applic 01/20/18 22:00 01/21/18 21:22 Hibiclens For Decolonization - TP 1 applic HS SANDRA Administration Cyclobenzaprine HCl 10 mg 01/20/18 06:00 01/22/18 06:15 Flexeril - PO 10 mg TID SANDRA Administration Diazepam 5 mg 01/19/18 22:52 01/22/18 05:08 Valium - PO 5 mg Q6H PRN Administration MUSCLE SPASMS Docusate Sodium 100 mg 01/20/18 14:00 01/22/18 06:15 Colace - PO 100 mg TID SANDRA Administration Fentanyl 50 mcg 01/19/18 22:52 Sublimaze Injection - IVPUSH [id number] PRN PAIN-PACU ORDER X 4 DOSES ONLY Gabapentin 300 mg 01/20/18 06:00 01/22/18 06:15 Neurontin - PO 300 mg TID SANDRA Administration Ketorolac Tromethamine 30 mg 01/22/18 10:00 01/22/18 11:14 Toradol Injection - IVPUSH 01/27/18 09:59 30 mg Q8H-IV SANDRA Administration Morphine Sulfate 4 mg 01/21/18 03:05 01/22/18 06:15 Morphine Sulfate IVPUSH 4 mg Q4H PRN Administration PAIN LEVEL 6-10 Mupirocin 1 applic 01/20/18 10:00 01/22/18 11:06 Bactroban Ointment (For Decolonization) - NS 01/25/18 09:59 1 applic BID SANDRA Administration Ondansetron HCl 4 mg 01/19/18 22:52 Zofran Injection IVPUSH Q6H PRN NAUSEA AND/OR VOMITING Oxycodone HCl 10 mg 01/22/18 10:45 01/22/18 12:37 Oxycontin - PO 10 mg BID SANDRA Administration Pantoprazole Sodium 40 mg 01/20/18 10:00 01/22/18 11:11 Protonix - PO 40 mg BID SANDRA Administration Promethazine HCl 12.5 mg 01/19/18 22:52 Phenergan Injection - IVPB Q6H PRN NAUSEA-FOR RESCUE AFTER 15 MIN Senna 2 tab 01/20/18 10:25 01/21/18 21:38 Senna - PO 2 tab HS PRN Administration CONSTIPATION ASSESSMENT/PLAN: Pt is a 47 yo F with PMH of chronic back pain and radiculopathy LLE>RLE, who presents to the ICU s/p L4-S1 laminectomies; L3 partial laminectomy; L4-L5, & L5 -S1 PLIF, L4-S1 PISF POD #3 (operation 01/19/2018). 1. S/p Laminectomy -Pain control Pt still in pain after morphine administration (4 mg IV Q4hr PRN) Started oxycodone 10 mg PO BID. Will reassess for pain control. -PT/OT/Rehab, OOB. Pt able to get out of bed with PT today. Weight bearing as tolerated. -Q4h B/L lower extremity neurovascular checks. -Post-op antibiotics x 2 doses were given (Ancef & Vancomycin) -Davol drain output removed today by Dr. Nelson -Rogelio DC iglesias catheter today and provide pt assistance with the restroom -Ondansetron and Promethazine PRN for n/v if necessary -Discharge planning per Dr. Nelson: [facility]; call for appointment; [phone]. 2. -UTI (resolved) - pt completed regimen of Macrobid 3. Prophylaxis -TEDs & SCDs Only (no NSAIDs or heparin to be given) -40 mg Protonix 4. FEN -Fluids: LR @125mls/hr. Will d/c once pt is tolerating PO intake. -Electrolytes: F/u AM labs, replete as needed. Mg repleted this AM. -Pt has passed flatus; has started full diet, but has not really tolerated yet. Dispo: transfer to med/surg floor Problem List - Problems (1) S/P laminectomy Code(s): Z98.890 - OTHER SPECIFIED POSTPROCEDURAL STATES (2) Low back pain Code(s): M54.5 - LOW BACK PAIN Qualifiers: Chronicity: acute Back pain laterality: left Sciatica presence: with sciatica Sciatica laterality: sciatica of left side Qualified Code(s): M54.42 - Lumbago with sciatica, left side Visit type - Emergency Visit Emergency Visit: No - New Patient This patient is new to me today: Yes Date on this admission: 01/22/18 - Critical Care Critical Care patient: Yes Total Critical Care Time (in minutes): 30 Critical Care Statement: The care of this patient involved high complexity decision making to prevent further life threatening deterioration of the patient 's condition and/or to evaluate & treat vital organ system(s) failure or risk of failure. - Discharge Referral Referred to [facility] Med P.C.: Yes
[2018-01-22] MEDS: SENNOSIDES 8.6MG TABLET (FP) PO PRN (21:33)
[2018-01-22] MEDS: CHLORHEXIDINE GLUCONATE 4% CLEANSER FOR DECOLONIZATION TP SCH (22:38)
[2018-01-23] MEDS: KETOROLAC TROMETHAMINE 30 MG/1 ML VIAL IVPUSH SCH ×2 (02:05→11:50)
[2018-01-23] MEDS: CYCLOBENZAPRINE HCL 10 MG TABLET (FP) PO SCH ×2 (05:57→13:50)
[2018-01-23] MEDS: GABAPENTIN 300 MG CAPSULE (FP) PO SCH ×3 (05:57→21:32)
[2018-01-23] MEDS: DOCUSATE SODIUM 100 MG CAPSULE (FP) PO SCH ×3 (05:57→21:32)
[2018-01-23 06:12] LABS: ALBUMIN 2.2 g/dl (3.4-5.0); ANION GAP 7 MMOL/L (8-16); BILIRUBIN,TOTAL 0.2 mg/dL (0.2-1.0); BLOOD UREA NITROGEN 9 mg/dL (7-18); CALCIUM 8.3 mg/dL (8.5-10.1); CHLORIDE 104 mmol/L (98-107); CO2 30 mmol/L (21-32); CREATININE 0.5 mg/dL (0.55-1.02); GLUCOSE,RANDOM 131 mg/dL (74-106); MAGNESIUM 1.9 mg/dL (1.8-2.4); PHOSPHOROUS 4.6 mg/dL (2.5-4.9); POTASSIUM 3.6 mmol/L (3.5-5.1); SGOT/AST 41 U/L (15-37); SGPT/ALT 44 U/L (12-78); SODIUM 141 mmol/L (136-145); TOT PROT 5.1 g/dl (6.4-8.2)
[2018-01-23 06:13] LABS: ALK PHOS 72 U/L (45-117)
[2018-01-23 06:26] LABS: BASO % 0.5 % (0-2.0); EOS % 3.9 % (0-4.5); HEMATOCRIT 27.4 % (32.4-45.2); HEMOGLOBIN 8.9 GM/dL (10.7-15.3); LYMPH % 22.2 % (8-40); MCH 26.1 pg (25.7-33.7); MCHC 32.6 g/dl (32.0-36.0); MEAN CELL VOLUME 80.1 fl (80-96); MEAN PLT VOLUME 8.8 fl (7.5-11.1); MONO % 7.5 % (3.8-10.2); NEUT % 65.9 % (42.8-82.8); PLATELET COUNT 217 K/MM3 (134-434); RBC 3.42 M/mm3 (3.60-5.2); RDW 16.4 % (11.6-15.6); WHITE BLOOD COUNT 8.8 K/mm3 (4.0-10.0)
--- NOTE | 2018-01-23 07:08 | PN ---
Physical Exam: SUBJECTIVE: Patient seen and examined this AM. Pt has been able to tolerate PO food and fluid intake with no difficulty. She states the pain is much better controlled today with use of PO medications compared to yesterday. She has been passing flatus but no BM yet. She was afebrile overnight with no acute events. She was able to walk and sit in a chair with PT yesterday. OBJECTIVE: Vital Signs Period Temp Pulse Resp BP Sys/Brenner Pulse Ox Last 24 Hr 97.5 F-98.4 F 80-117 15-20 91-128/59-85 96-96 GENERAL: The patient is awake, alert, and fully oriented, in no acute distress. HEAD: Normal with no signs of trauma. EYES: Extraocular movements intact, sclera anicteric, conjunctiva clear. No ptosis. ENT: External ears normal, nares patent, oropharynx clear without exudates, moist mucous membranes. NECK: Trachea midline, full range of motion, supple. LUNGS: Breath sounds equal, clear to auscultation bilaterally, no wheezes, no crackles, no accessory muscle use. HEART: Regular rate and rhythm, S1, S2 without murmur, rub or gallop. ABDOMEN: Soft, nontender, nondistended, normoactive bowel sounds, no guarding, no rebound, no hepatosplenomegaly, no masses. EXTREMITIES: 2+ pulses, warm, well-perfused, no pitting edema. SCDs in place. Davol drain has been removed. Back is covered with clean and intact dressing, which was changed yesterday. NEUROLOGICAL: Cranial nerves II through XII grossly intact. Strength and sensation in b/l UE and LE WNL. Normal speech, gait not observed. PSYCH: Normal mood and happy affect this morning. SKIN: Warm, dry, normal turgor, no rashes or lesions noted. Laboratory Results - last 24 hr 01/22/18 01/22/18 01/23/18 05:30 05:30 05:30 WBC 10.8 H 8.8 RBC 3.50 L 3.42 L Hgb 9.2 L 8.9 L Hct 28.0 L 27.4 L MCV 80.2 80.1 MCH 26.4 26.1 MCHC 33.0 32.6 RDW 16.5 H 16.4 H Plt Count 185 217 MPV 9.2 8.8 Absolute Neuts (auto) 5.8 Neutrophils % 65.9 Lymphocytes % 22.2 D Monocytes % 7.5 Eosinophils % 3.9 D Basophils % 0.5 Nucleated RBC % 0 Sodium 139 Potassium 3.8 Chloride 104 Carbon Dioxide 30 Anion Gap 5 L BUN 6 L Creatinine 0.5 L Creat Clearance w eGFR > 60 Random Glucose 89 Calcium 8.2 L Phosphorus 3.5 Magnesium 1.7 L Total Bilirubin AST ALT Alkaline Phosphatase Total Protein Albumin 01/23/18 05:30 WBC RBC Hgb Hct MCV MCH MCHC RDW Plt Count MPV Absolute Neuts (auto) Neutrophils % Lymphocytes % Monocytes % Eosinophils % Basophils % Nucleated RBC % Sodium 141 Potassium 3.6 Chloride 104 Carbon Dioxide 30 Anion Gap 7 L BUN 9 Creatinine 0.5 L Creat Clearance w eGFR > 60 Random Glucose 131 H Calcium 8.3 L Phosphorus 4.6 Magnesium 1.9 Total Bilirubin 0.2 AST 41 H ALT 44 Alkaline Phosphatase 72 Total Protein 5.1 L Albumin 2.2 L Active Medications Generic Name Dose Route Start Last Admin Trade Name Freq PRN Reason Stop Dose Admin Chlorhexidine Gluconate 1 applic 01/20/18 22:00 01/22/18 22:38 Hibiclens For Decolonization - TP 1 applic HS SANDRA Administration Cyclobenzaprine HCl 10 mg 01/20/18 06:00 01/23/18 05:57 Flexeril - PO 10 mg TID SANDRA Administration Diazepam 5 mg 01/19/18 22:52 01/22/18 05:08 Valium - PO 5 mg Q6H PRN Administration MUSCLE SPASMS Docusate Sodium 100 mg 01/20/18 14:00 01/23/18 05:57 Colace - PO 100 mg TID SANDRA Administration Gabapentin 300 mg 01/20/18 06:00 01/23/18 05:57 Neurontin - PO 300 mg TID SANDRA Administration Ketorolac Tromethamine 30 mg 01/22/18 10:00 01/23/18 02:05 Toradol Injection - IVPUSH 01/27/18 09:59 30 mg Q8H-IV SANDRA Administration Morphine Sulfate 4 mg 01/21/18 03:05 01/22/18 20:46 Morphine Sulfate IVPUSH 4 mg Q4H PRN Administration PAIN LEVEL 6-10 Mupirocin 1 applic 01/20/18 10:00 01/22/18 22:37 Bactroban Ointment (For Decolonization) - NS 01/25/18 09:59 1 applic BID SANDRA Administration Ondansetron HCl 4 mg 01/19/18 22:52 Zofran Injection IVPUSH Q6H PRN NAUSEA AND/OR VOMITING Oxycodone HCl 10 mg 01/22/18 10:45 01/22/18 22:38 Oxycontin - PO 10 mg BID SANDRA Administration Pantoprazole Sodium 40 mg 01/20/18 10:00 01/22/18 21:33 Protonix - PO 40 mg BID SANDRA Administration Promethazine HCl 12.5 mg 01/19/18 22:52 Phenergan Injection - IVPB Q6H PRN NAUSEA-FOR RESCUE AFTER 15 MIN Senna 2 tab 01/20/18 10:25 01/22/18 21:33 Senna - PO 2 tab HS PRN Administration CONSTIPATION ASSESSMENT/PLAN: Pt is a 47 yo F with PMH of chronic back pain and radiculopathy LLE>RLE, who presents to the ICU s/p L4-S1 laminectomies; L3 partial laminectomy; L4-L5, & L5 -S1 PLIF, L4-S1 PISF POD #4 (operation 01/19/2018). 1. S/p Laminectomy -Pain control Started oxycodone 10 mg PO BID, and has been requesting morphine still. Primary team will be switching pain medications to PO so she is well- controlled when she leaves the hospital. -PT/OT/Rehab, OOB. Pt able to get out of bed with PT today. Weight bearing as tolerated. -Q4h B/L lower extremity neurovascular checks. -Post-op antibiotics x 2 doses were given (Ancef & Vancomycin) -Davol drain output removed yesterday by Dr. Nelson -Joy catheter d/c yesterday -Ondansetron and Promethazine PRN for n/v if necessary -Discharge planning per Dr. Nelson: f/u 7[facility]; call for appointment; [phone]. 2. Anemia -Pre-surgical H/H: (01/09) --> 8.9/27.4 today -Primary team aware, ordering reticulocyte count today, will f/u with Fe studies if necessary. MCV borderline low-normal (80). 3. -UTI (resolved) - pt completed regimen of Macrobid 4. Prophylaxis -TEDs & SCDs Only (no NSAIDs or heparin to be given) -40 mg Protonix 5. FEN -Fluids d/c yesterday afternoon, as pt is tolerating PO intake. -Electrolytes: F/u AM labs, replete as needed. Mg repleted this AM. -Pt has passed flatus; has started full diet. Dispo: Transfer to med/surg floor in place. May discharge from ICU to rehab center. Pending primary team decision. Problem List - Problems (1) S/P laminectomy Code(s): Z98.890 - OTHER SPECIFIED POSTPROCEDURAL STATES (2) Low back pain Code(s): M54.5 - LOW BACK PAIN Qualifiers: Chronicity: acute Back pain laterality: left Sciatica presence: with sciatica Sciatica laterality: sciatica of left side Qualified Code(s): M54.42 - Lumbago with sciatica, left side Visit type - Emergency Visit Emergency Visit: No - New Patient This patient is new to me today: No - Critical Care Critical Care patient: Yes Total Critical Care Time (in minutes): 30 Critical Care Statement: The care of this patient involved high complexity decision making to prevent further life threatening deterioration of the patient 's condition and/or to evaluate & treat vital organ system(s) failure or risk of failure. - Discharge Referral Referred to [facility] Med P.C.: Yes
[2018-01-23] MEDS: MORPHINE SULFATE 2 MG/ML VIAL IVPUSH PRN (07:48)
--- NOTE | 2018-01-23 08:05 | PN ---
Physical Exam: SUBJECTIVE: Patient seen and examined this AM. She says she is sore this morning but much better than yesterday morning. She was able to ambulate to the bathroom overnight with a walker. She says she is having large amounts of gas but no bowel movements yet post op. She is tolerating her diet better today than yesterday. OBJECTIVE: Vital Signs Period Temp Pulse Resp BP Sys/Brenner Pulse Ox Last 24 Hr 97.5 F-98.4 F 80-117 15-20 91-128/59-85 96-96 GENERAL: A&O, No acute distress currently HEAD: Normocephalic, atraumatic. EARS, NOSE, THROAT: oropharynx clear without exudates. Moist mucous membranes. LUNGS: CTA b/l, no crackles or wheezes HEART: Regular rate and rhythm, normal S1 and S2 without murmur ABDOMEN: Soft, nontender to palpation, normoactive bowel sounds MUSCULOSKELETAL: Dressing clean, dry and in tact posteriorly, tenderness to palpation in lumbar region. Motion and strength improving EXTREMITIES: 2+ pulses, warm, well-perfused. NEUROLOGICAL: Cranial nerves II-XII grossly intact. Neurosensory in tact in b/ l LE PSYCHIATRIC: Cooperative. Good eye contact. Appropriate mood and affect today SKIN: Warm, dry, no rashes or lesions noted. Laboratory Results - last 24 hr 01/23/18 01/23/18 05:30 05:30 WBC 8.8 RBC 3.42 L Hgb 8.9 L Hct 27.4 L MCV 80.1 MCH 26.1 MCHC 32.6 RDW 16.4 H Plt Count 217 MPV 8.8 Absolute Neuts (auto) 5.8 Neutrophils % 65.9 Lymphocytes % 22.2 D Monocytes % 7.5 Eosinophils % 3.9 D Basophils % 0.5 Nucleated RBC % 0 Sodium 141 Potassium 3.6 Chloride 104 Carbon Dioxide 30 Anion Gap 7 L BUN 9 Creatinine 0.5 L Creat Clearance w eGFR > 60 Random Glucose 131 H Calcium 8.3 L Phosphorus 4.6 Magnesium 1.9 Total Bilirubin 0.2 AST 41 H ALT 44 Alkaline Phosphatase 72 Total Protein 5.1 L Albumin 2.2 L Active Medications Generic Name Dose Route Start Last Admin Trade Name Freq PRN Reason Stop Dose Admin Chlorhexidine Gluconate 1 applic 01/20/18 22:00 01/22/18 22:38 Hibiclens For Decolonization - TP 1 applic HS SANDRA Administration Cyclobenzaprine HCl 10 mg 01/20/18 06:00 01/23/18 05:57 Flexeril - PO 10 mg TID SANDRA Administration Diazepam 5 mg 01/19/18 22:52 01/22/18 05:08 Valium - PO 5 mg Q6H PRN Administration MUSCLE SPASMS Docusate Sodium 100 mg 01/20/18 14:00 01/23/18 05:57 Colace - PO 100 mg TID SANDRA Administration Gabapentin 300 mg 01/20/18 06:00 01/23/18 05:57 Neurontin - PO 300 mg TID SANDRA Administration Ketorolac Tromethamine 30 mg 01/22/18 10:00 01/23/18 02:05 Toradol Injection - IVPUSH 01/27/18 09:59 30 mg Q8H-IV SANDRA Administration Morphine Sulfate 4 mg 01/21/18 03:05 01/23/18 07:48 Morphine Sulfate IVPUSH 4 mg Q4H PRN Administration PAIN LEVEL 6-10 Mupirocin 1 applic 01/20/18 10:00 01/22/18 22:37 Bactroban Ointment (For Decolonization) - NS 01/25/18 09:59 1 applic BID SANDRA Administration Ondansetron HCl 4 mg 01/19/18 22:52 Zofran Injection IVPUSH Q6H PRN NAUSEA AND/OR VOMITING Oxycodone HCl 10 mg 01/22/18 10:45 01/22/18 22:38 Oxycontin - PO 10 mg BID SANDRA Administration Pantoprazole Sodium 40 mg 01/20/18 10:00 01/22/18 21:33 Protonix - PO 40 mg BID SANDRA Administration Promethazine HCl 12.5 mg 01/19/18 22:52 Phenergan Injection - IVPB Q6H PRN NAUSEA-FOR RESCUE AFTER 15 MIN Senna 2 tab 01/20/18 10:25 01/22/18 21:33 Senna - PO 2 tab HS PRN Administration CONSTIPATION ASSESSMENT/PLAN: 47 yo female s/p L3-S1 laminectomies; L4-L5, & L5-S1 PLIF, L4-S1 PISF. POD 4. Acute on Chronic Low back pain with radiculopathy to left leg, s/p laminectomy with fusions. POD 4 -Neurontin 300mg PO TID, Flexeril 10 mg PO TID, Valium 5 mg PO Q6 PRN, Oxycodone 5mg PO for Pain 4-6, Oxycodone 10 mg PO 7-10 pain -Advanced to regular diet, tolerating better -Incentive spirometry -OOB to chair yesterday tolerated well -Can be transferred out of ICU -Leukocytosis likely reactive secondary to surgical intervention -Oxycodone SR 10 mg PO BID to decrease threshold in hopes of requiring less PRN meds H/H slowly trending down post-op -650 cc blood loss intraoperatively with 250 cc returned from [facility] -Pt was on fluids which could have been contributing to dilution -Fluids D/c yesterday -Will add Retic count to AM labs -Consider iron studies with MCV 81, though pt not anemic preop -Pain improving at surgical site with no sign of swelling or hematoma, very unlikely losses into surgical site UTI -Completed treatment with macrobid -not currently complaining of dysuria, hematuria DVT Prophylaxis -Mechanical only until okayed by surgery FEN -Fluids: None -Electrolytes: No electrolyte abnormalities -Nutrition: Regular diet Disposition Stable to return to Med/Surg Visit type - Emergency Visit Emergency Visit: Yes ED Registration Date: 01/10/18 Care time: The patient presented to the Emergency Department on the above date and was hospitalized for further evaluation of their emergent condition. - New Patient This patient is new to me today: No - Critical Care Critical Care patient: Yes Total Critical Care Time (in minutes): 35 Critical Care Statement: The care of this patient involved high complexity decision making to prevent further life threatening deterioration of the patient 's condition and/or to evaluate & treat vital organ system(s) failure or risk of failure.
--- NOTE | 2018-01-23 08:32 | PN ---
Teaching Attending Note Name of Resident: David Diaz ATTENDING PHYSICIAN STATEMENT I saw and evaluated the patient. I reviewed the resident's note and discussed the case with the resident. I agree with the resident's findings and plan as documented with exceptions below. SUBJECTIVE: Patient seen and examined. Back pain but improved, working with PT, no new complaints. Overall feels better OBJECTIVE: Vital Signs Period Temp Pulse Resp BP Sys/Brenner Pulse Ox Last 24 Hr 97.5 F-98.4 F 80-117 15-20 91-128/59-85 96-96 Intake & Output 01/20/18 01/21/18 01/22/18 01/23/18 23:59 23:59 23:59 23:59 Intake Total 1790 3245 1442 300 Output Total 4155 5810 550 Balance -2365 -2607 892 300 Weight 243 lb 2 oz 245 lb 6 oz 242 lb General; lying in bed in no acute distress Musculoskeletal: clean spinal dressing, hemovac removed, no bleeding or discharge noted, SLR up 10 degree LLE, 35-40 degrees RLE Chest: CTAB, no rales or wheezing Abdomen: soft, obese, NT Extremities: no edema or calf tenderness Home Medications Medication Instructions Recorded Cyclobenzaprine HCl 10 mg PO HS 01/09/18 Meloxicam 15 mg PO AM 01/09/18 Medroxyprogesterone Acetate 10 mg PO DAILY 01/10/18 Nitrofurantoin Monohyd/M-Cryst 100 mg PO BID 01/10/18 [Macrobid -] Oxycodone HCl/Acetaminophen 1 each PO Q6H 01/10/18 [Oxycodone-Acetaminophen 5-325] Active Medications Chlorhexidine Gluconate (Hibiclens For Decolonization -) 1 applic TP HS [facility] Last Admin: 01/22/18 22:38 Dose: 1 applic Cyclobenzaprine HCl (Flexeril -) 10 mg PO TID [facility] Last Admin: 01/23/18 05:57 Dose: 10 mg Diazepam (Valium -) 5 mg PO Q6H PRN PRN Reason: MUSCLE SPASMS Last Admin: 01/22/18 05:08 Dose: 5 mg Docusate Sodium (Colace -) 100 mg PO TID [facility] Last Admin: 01/23/18 05:57 Dose: 100 mg Gabapentin (Neurontin -) 300 mg PO TID [facility] Last Admin: 01/23/18 05:57 Dose: 300 mg Ketorolac Tromethamine (Toradol Injection -) 30 mg IVPUSH Q8H-IV [facility] Stop: 01/27/18 09:59 Last Admin: 01/23/18 02:05 Dose: 30 mg Morphine Sulfate (Morphine Sulfate) 4 mg IVPUSH Q4H PRN PRN Reason: PAIN LEVEL 6-10 Last Admin: 01/23/18 07:48 Dose: 4 mg Mupirocin (Bactroban Ointment (For Decolonization) -) 1 applic NS BID [facility] Stop: 01/25/18 09:59 Last Admin: 01/22/18 22:37 Dose: 1 applic Ondansetron HCl (Zofran Injection) 4 mg IVPUSH Q6H PRN PRN Reason: NAUSEA AND/OR VOMITING Oxycodone HCl (Oxycontin -) 10 mg PO BID [facility] Last Admin: 01/22/18 22:38 Dose: 10 mg Pantoprazole Sodium (Protonix -) 40 mg PO BID [facility] Last Admin: 01/22/18 21:33 Dose: 40 mg Promethazine HCl (Phenergan Injection -) 12.5 mg IVPB Q6H PRN PRN Reason: NAUSEA-FOR RESCUE AFTER 15 MIN Senna (Senna -) 2 tab PO HS PRN PRN Reason: CONSTIPATION Last Admin: 01/22/18 21:33 Dose: 2 tab Laboratory Results - last 24 hr 01/23/18 01/23/18 05:30 05:30 WBC 8.8 RBC 3.42 L Hgb 8.9 L Hct 27.4 L MCV 80.1 MCH 26.1 MCHC 32.6 RDW 16.4 H Plt Count 217 MPV 8.8 Absolute Neuts (auto) 5.8 Neutrophils % 65.9 Lymphocytes % 22.2 D Monocytes % 7.5 Eosinophils % 3.9 D Basophils % 0.5 Nucleated RBC % 0 Sodium 141 Potassium 3.6 Chloride 104 Carbon Dioxide 30 Anion Gap 7 L BUN 9 Creatinine 0.5 L Creat Clearance w eGFR > 60 Random Glucose 131 H Calcium 8.3 L Phosphorus 4.6 Magnesium 1.9 Total Bilirubin 0.2 AST 41 H ALT 44 Alkaline Phosphatase 72 Total Protein 5.1 L Albumin 2.2 L ASSESSMENT AND PLAN: 47 yo F with PMhx of chronic back pain, Lumbar disc disease (reportedly since injury in 04/2016), followed by Dr. Nelson (spine), and Dr Thomas (pain management) comes with worsening back pain and lumbar radiculopathy for last 2 days. 1. Acute severe lumbar spinal stenosis with neurogenic claudication- L3 partial laminectomy. 2. L4, L5, S1 laminectomies. 3. L4-L5, L5-S1 discectomies. 4. L4 -L5, L5-S1 posterior lumbar interbody fusion. 5. L4-S1 postero-lateral instrumentation. 6. L4-S1 postero-lateral arthrodesis. 7. Bone marrow aspiration. 8. Bone autograft. 9. Bone allograft on 01/19. -Acute blood loss anemia (From surgical and hemovac blood loss) -Leucocytosis, suspect from surgical stress -Morbid obesity (BMI 40.3) -Recent UTI, s/p 7 days of macrobid Plan: Oxycontin. transition to oxycodone prn for pain, d/c morphine. Continue PT. Valium prn. Continue gabapentin. H/h seems to have plateaued, monitor for now. Weight loss counseling and dietary consult. DVTPPX SCDs per orthopedic spine Dispo for [facility] when arranged. Plan discussed with patient in detail, all questions answered. Awaiting transfer to medical floors. Can be d/víctor to [facility] when bed available. Plan discussed with patient in detail, all questions answered. The care of this patient involved high complexity decision making to prevent further life threatening deterioration of the patient's condition and/or to evaluate & treat vital organ system(s) failure or risk of failure. 35 minutes
[2018-01-23] MEDS: MUPIROCIN 2% TOPICAL OINTMENT FOR DECOLONIZATION NS SCH ×2 (10:35→22:26)
[2018-01-23] MEDS: oxyCODONE HCL 10 MG SUSTAINED ACTING TABLET PO SCH ×2 (10:38→21:32)
[2018-01-23] MEDS: PANTOPRAZOLE 40 MG TABLET (FP) PO SCH ×2 (10:38→21:32)
--- NOTE | 2018-01-23 12:13 | PN ---
Teaching Attending Note Name of Resident: Gloria Song ATTENDING PHYSICIAN STATEMENT I saw and evaluated the patient. I reviewed the resident's note and discussed the case with the resident. I agree with the resident's findings and plan as documented. SUBJECTIVE: Patient seen and examined in the ICU. Awake and alert. Pain seems better controlled with PO pain meds. No CP or SOB. Intake & Output 01/20/18 01/21/18 01/22/18 01/23/18 23:59 23:59 23:59 23:59 Intake Total 1790 3245 1442 300 Output Total 4155 5850 550 Balance -6213 -4644 892 300 Weight 243 lb 2 oz 245 lb 6 oz 242 lb Last Vital Signs Temp Pulse Resp BP Pulse Ox 97.5 F L 98 H 18 108/74 96 01/23/18 06:00 01/23/18 10:00 01/23/18 10:00 01/23/18 10:00 01/23/18 10:00 Active Medications Chlorhexidine Gluconate (Hibiclens For Decolonization -) 1 applic TP HS [facility] Last Admin: 01/22/18 22:38 Dose: 1 applic Cyclobenzaprine HCl (Flexeril -) 10 mg PO TID [facility] Last Admin: 01/23/18 05:57 Dose: 10 mg Diazepam (Valium -) 5 mg PO BID [facility] Docusate Sodium (Colace -) 100 mg PO TID [facility] Last Admin: 01/23/18 05:57 Dose: 100 mg Gabapentin (Neurontin -) 300 mg PO TID [facility] Last Admin: 01/23/18 05:57 Dose: 300 mg Ketorolac Tromethamine (Toradol Injection -) 30 mg IVPUSH Q8H-IV [facility] Stop: 01/27/18 09:59 Last Admin: 01/23/18 11:50 Dose: 30 mg Morphine Sulfate (Morphine Sulfate) 4 mg IVPUSH Q4H PRN PRN Reason: PAIN LEVEL 6-10 Last Admin: 01/23/18 07:48 Dose: 4 mg Mupirocin (Bactroban Ointment (For Decolonization) -) 1 applic NS BID [facility] Stop: 01/25/18 09:59 Last Admin: 01/23/18 10:35 Dose: 1 applic Ondansetron HCl (Zofran Injection) 4 mg IVPUSH Q6H PRN PRN Reason: NAUSEA AND/OR VOMITING Oxycodone HCl (Oxycontin -) 10 mg PO BID [facility] Last Admin: 01/23/18 10:38 Dose: 10 mg Oxycodone HCl (Roxicodone -) 5 mg PO Q6H PRN PRN Reason: PAIN LEVEL 4 - 6 Oxycodone HCl (Roxicodone -) 10 mg PO Q6H PRN PRN Reason: PAIN LEVEL 7 - 10 Pantoprazole Sodium (Protonix -) 40 mg PO BID [facility] Last Admin: 01/23/18 10:38 Dose: 40 mg Polyethylene Glycol (Miralax (For Daily Use) -) 17 gm PO DAILY [facility] Promethazine HCl (Phenergan Injection -) 12.5 mg IVPB Q6H PRN PRN Reason: NAUSEA-FOR RESCUE AFTER 15 MIN Senna (Senna -) 2 tab PO HS PRN PRN Reason: CONSTIPATION Last Admin: 01/22/18 21:33 Dose: 2 tab General: awake, alert w/o distress Heent: PERRL, no JVD, anicteric sclera Pulm: CTA CV: RRR Abd: obese, Soft, NT, ND, (+) BS Ext: WWP, trace LE edema Back: clean Neuro: AOx3 Laboratory Results - last 24 hr 01/23/18 01/23/18 01/23/18 05:30 05:30 05:30 WBC 8.8 RBC 3.42 L Hgb 8.9 L Hct 27.4 L MCV 80.1 MCH 26.1 MCHC 32.6 RDW 16.4 H Plt Count 217 MPV 8.8 Absolute Neuts (auto) 5.8 Neutrophils % 65.9 Lymphocytes % 22.2 D Monocytes % 7.5 Eosinophils % 3.9 D Basophils % 0.5 Nucleated RBC % 0 Retic Count 1.67 H Sodium 141 Potassium 3.6 Chloride 104 Carbon Dioxide 30 Anion Gap 7 L BUN 9 Creatinine 0.5 L Creat Clearance w eGFR > 60 Random Glucose 131 H Calcium 8.3 L Phosphorus 4.6 Magnesium 1.9 Total Bilirubin 0.2 AST 41 H ALT 44 Alkaline Phosphatase 72 Total Protein 5.1 L Albumin 2.2 L IMP: S/P L3 partial laminectomy L4, L5, S1 laminectomies L4-L5, L5-S1 discectomies L4-L5, L5-S1 posterior lumbar interbody fusion L4-S1 postero-lateral instrumentation L4-S1 postero-lateral arthrodesis Bone marrow aspiration Bone autograft Bone allograft PLAN: Percocet Incentive Spirometry O2 as needed VTE prophylaxis PT/OT Bowel regimen PO as tolerated Floor / DC planning Dr Allen
[2018-01-23] MEDS ORDERED: KETOROLAC TROMETHAMINE 30 MG/1 ML VIAL IVPUSH PRN (13:52)
[2018-01-23] MEDS: diazePAM 5 MG TABLET PO PRN ×2 (15:01→21:32)
[2018-01-23] MEDS: POLYETHYLENE GLYCOL 3350 119 GM BTL PO SCH (18:32)
[2018-01-23] MEDS ORDERED: morphine SULFATE 4 MG/ML VIAL ONE (20:29)
[2018-01-23] MEDS ORDERED: morphine SULFATE 4 MG/ML VIAL IVPUSH ONE (20:59)
[2018-01-23] MEDS: CHLORHEXIDINE GLUCONATE 4% CLEANSER FOR DECOLONIZATION TP SCH (21:33)
[2018-01-23] MEDS ORDERED: diazePAM 5 MG TABLET PO SCH (22:00)
--- NOTE | 2018-01-24 01:03 | PN ---
Progress Note (short form) - Note Progress Note: 47F s/p L4-S1 laminectomies; L3 partial laminectomy; L4-L5, & L5-S1 PLIF, L4-S1 PISF POD #4. Pain well controlled. No acute events overnight. Pt. denies overnight history of headaches, chest pain, shortness of breath, nausea, vomiting, chills, & sweats. (+) Voiding; (+) Flatus; (-) BM. Tolerating diet. (+) Walked to bathroom. All labs and vitals reviewed. PE: AAO x 3, NAD. L-Spine: Incision, dressing C/D/I. RLE M: L2-S1 5/5. LLE M: L2-S1 4/5. B/L LE S: L2-S1 2/2. 47F doing well s/p L4-S1 laminectomies; L3 partial laminectomy; L4-L5, & L5-S1 PLIF, L4-S1 PISF POD #4. -Pain control: per anaesthesia team. -DVT PPx: - Mechanical only: LEOPOLDO's, SCD's. -Incentive spirometry q15min. -PT/OT/Rehab, OOB. -WBAT B/L LE. -q4h B/L LE NV checks. -Raised toilet seat. -Diet as tolerated. -Care per ICU & medical hospitalist team. -Discharge planning: f/u 7-10 days after discharge at [facility] office; call for appointment; . -Will follow. Gage Nelson MD (Orthopaedic Surgery).
[2018-01-24] MEDS: oxyCODONE HCL 5 MG TABLET PO PRN ×5 (02:25→23:53)
[2018-01-24] MEDS: diazePAM 5 MG TABLET PO PRN ×2 (04:39→16:14)
[2018-01-24] MEDS ORDERED: ONDANSETRON 4 MG/2 ML VIAL IVPUSH PRN (05:44)
[2018-01-24] MEDS ORDERED: PROMETHAZINE HCL 25 MG/1 ML VIAL IVPB PRN (05:44)
[2018-01-24 05:47] LABS: HEMATOCRIT 26.7 % (32.4-45.2); HEMOGLOBIN 8.9 GM/dL (10.7-15.3); MCH 26.7 pg (25.7-33.7); MCHC 33.3 g/dl (32.0-36.0); MEAN CELL VOLUME 80.1 fl (80-96); MEAN PLT VOLUME 8.5 fl (7.5-11.1); PLATELET COUNT 248 K/MM3 (134-434); RBC 3.33 M/mm3 (3.60-5.2); RDW 16.8 % (11.6-15.6)
[2018-01-24] MEDS: GABAPENTIN 300 MG CAPSULE (FP) PO SCH ×3 (05:55→21:15)
[2018-01-24] MEDS: DOCUSATE SODIUM 100 MG CAPSULE (FP) PO SCH ×3 (05:56→21:13)
[2018-01-24] MEDS ORDERED: HYDROmorphone HCL 2 MG TABLET PO ONE (06:45)
--- NOTE | 2018-01-24 08:39 | PN ---
Teaching Attending Note Name of Resident: David Diaz ATTENDING PHYSICIAN STATEMENT I saw and evaluated the patient. I reviewed the resident's note and discussed the case with the resident. I agree with the resident's findings and plan as documented with exceptions below. SUBJECTIVE: patient seen and examined. in bed, reprots some back pain, unchanged leg pain and some knee pain since last night. OBJECTIVE: Vital Signs Period Temp Pulse Resp BP Sys/Brenner Pulse Ox Last 24 Hr 97.5 F-98.6 F 92-118 17-22 98-129/57-85 96-96 Intake & Output 01/21/18 01/22/18 01/23/18 01/24/18 23:59 23:59 23:59 23:59 Intake Total 3245 1442 550 240 Output Total 5850 550 2000 400 Balance -2605 892 -1450 -160 Weight 243 lb 2 oz 245 lb 6 oz 242 lb 242 lb General: lying in bed in no acute distress Musculoskeletal; spinal dressing clean, no surrounding discharge/swelling or bleed noted. RLE moves freely, full ROM right knee, LLE with limited movements, unchanged SLR, almost full ROM left knee in bed, no knee swelling/erythema/ crepitus or point tenderness noted Active Medications Diazepam (Valium -) 5 mg PO BID PRN PRN Reason: MUSCLE SPASMS Last Admin: 01/24/18 04:39 Dose: 5 mg Docusate Sodium (Colace -) 100 mg PO TID [facility] Last Admin: 01/24/18 05:56 Dose: 100 mg Gabapentin (Neurontin -) 300 mg PO TID [facility] Last Admin: 01/24/18 05:55 Dose: 300 mg Ondansetron HCl (Zofran Injection) 4 mg IVPUSH Q6H PRN PRN Reason: NAUSEA AND/OR VOMITING Oxycodone HCl (Roxicodone -) 5 mg PO Q6H PRN PRN Reason: PAIN LEVEL 4 - 6 Last Admin: 01/24/18 02:25 Dose: 5 mg Oxycodone HCl (Roxicodone -) 10 mg PO Q6H PRN PRN Reason: PAIN LEVEL 7 - 10 Last Admin: 01/24/18 00:00 Dose: 10 mg Oxycodone HCl (Oxycontin -) 10 mg PO BID [facility] Pantoprazole Sodium (Protonix -) 40 mg PO BID [facility] Polyethylene Glycol (Miralax (For Daily Use) -) 17 gm PO DAILY [facility] Last Admin: 01/23/18 18:32 Dose: Not Given Senna (Senna -) 2 tab PO HS PRN PRN Reason: CONSTIPATION Laboratory Results - last 24 hr 01/23/18 01/23/18 01/24/18 05:30 13:00 05:30 WBC 8.0 RBC 3.33 L Hgb 8.9 L Hct 26.7 L MCV 80.1 MCH 26.7 MCHC 33.3 RDW 16.8 H Plt Count 248 MPV 8.5 Retic Count 1.67 H Ferritin 75.9 ASSESSMENT AND PLAN: 47 yo F with PMhx of chronic back pain, Lumbar disc disease (reportedly since injury in 04/2016), followed by Dr. Nelson (spine), and Dr Thomas (pain management) comes with worsening back pain and lumbar radiculopathy for last 2 days. 1. Acute severe lumbar spinal stenosis with neurogenic claudication- L3 partial laminectomy. 2. L4, L5, S1 laminectomies. 3. L4-L5, L5-S1 discectomies. 4. L4 -L5, L5-S1 posterior lumbar interbody fusion. 5. L4-S1 postero-lateral instrumentation. 6. L4-S1 postero-lateral arthrodesis. 7. Bone marrow aspiration. 8. Bone autograft. 9. Bone allograft on 01/19. -Acute blood loss anemia (From surgical and hemovac blood loss) -Leucocytosis, suspect from surgical stress -Morbid obesity (BMI 40.3) -Recent UTI, s/p 7 days of macrobid Plan: Oxycontin. oxycodone prn for pain, Avoid IV meds. Continue PT. Valium prn. Continue gabapentin. Off toradol/flexeril. H/h stable. Interval monitoring. Bilateral Knee xrays, non concerning exam, continue PT. Weight loss counseling and dietary consult. DVTPPX SCDs per orthopedic spine Dispo for [facility] when arranged. Plan discussed with patient in detail, all questions answered. Awaiting transfer to medical floors. Plan discussed with patient in detail, all questions answered. The care of this patient involved high complexity decision making to prevent further life threatening deterioration of the patient's condition and/or to evaluate & treat vital organ system(s) failure or risk of failure. 30 minutes
[2018-01-24] MEDS: oxyCODONE HCL 10 MG SUSTAINED ACTING TABLET PO SCH ×2 (09:33→21:13)
[2018-01-24] MEDS: PANTOPRAZOLE 40 MG TABLET (FP) PO SCH ×2 (09:34→21:14)
[2018-01-24] MEDS: SENNOSIDES 8.6MG TABLET (FP) PO PRN (09:34)
[2018-01-24] MEDS: POLYETHYLENE GLYCOL 3350 119 GM BTL PO SCH (09:35)
[2018-01-24] MEDS ORDERED: LORazepam 0.5 MG TABLET PO ONE (09:48)
--- NOTE | 2018-01-24 13:05 | PN ---
Teaching Attending Note Name of Resident: Syed Solorio ATTENDING PHYSICIAN STATEMENT I saw and evaluated the patient. I reviewed the resident's note and discussed the case with the resident. I agree with the resident's findings and plan as documented. SUBJECTIVE: Pt seen and examined in the ICU. Soreness at surgical site. No shortness of breath or chest pain. +bowel movements. Joy out. OBJECTIVE: Vital Signs Period Temp Pulse Resp BP Sys/Brenner Pulse Ox Last 24 Hr 97.5 F-98.6 F 92-118 17-23 98-132/57-85 96-96 Intake & Output 01/21/18 01/22/18 01/23/18 01/24/18 23:59 23:59 23:59 23:59 Intake Total 3245 1442 550 240 Output Total 5850 550 2000 400 Balance -2605 892 -1450 -160 Weight 110.28 kg 111.3 kg 109.769 kg 109.769 kg Gen: NAD at rest Heart: RRR Lung: decreased breath sounds at the bases Abd: soft, nontender Ext: no edema CBC, BMP 01/24/18 05:30 01/23/18 05:30 Active Medications Diazepam (Valium -) 5 mg PO BID PRN PRN Reason: MUSCLE SPASMS Last Admin: 01/24/18 04:39 Dose: 5 mg Docusate Sodium (Colace -) 100 mg PO TID [facility] Last Admin: 01/24/18 05:56 Dose: 100 mg Gabapentin (Neurontin -) 300 mg PO TID [facility] Last Admin: 01/24/18 05:55 Dose: 300 mg Ondansetron HCl (Zofran Injection) 4 mg IVPUSH Q6H PRN PRN Reason: NAUSEA AND/OR VOMITING Oxycodone HCl (Roxicodone -) 5 mg PO Q6H PRN PRN Reason: PAIN LEVEL 4 - 6 Last Admin: 01/24/18 09:34 Dose: 5 mg Oxycodone HCl (Roxicodone -) 10 mg PO Q6H PRN PRN Reason: PAIN LEVEL 7 - 10 Last Admin: 01/24/18 00:00 Dose: 10 mg Oxycodone HCl (Oxycontin -) 10 mg PO BID [facility] Last Admin: 01/24/18 09:33 Dose: 10 mg Pantoprazole Sodium (Protonix -) 40 mg PO BID [facility] Last Admin: 01/24/18 09:34 Dose: 40 mg Polyethylene Glycol (Miralax (For Daily Use) -) 17 gm PO DAILY [facility] Last Admin: 01/24/18 09:35 Dose: Not Given Senna (Senna -) 2 tab PO HS PRN PRN Reason: CONSTIPATION Last Admin: 01/24/18 09:34 Dose: 2 tab ASSESSMENT AND PLAN: Severe Lumbar Stenosis Lumbar Radiculopathy s/p L3 partial laminectomy/L4, L5, S1 laminectomies/L4-L5, L5-S1 PSIF Anemia - pain control - incentive spirometry - bowel regimen - rehab/PT - DVT prophylaxis
--- NOTE | 2018-01-24 13:05 | PATH ---
Surgical Pathology Report Patient Name: CARMELA HERNANDEZ [facility]. Rec. #: [id number] /Age/Gender: 1970 (Age: 47) / F Account: [id number] Location: EMERGENCY ROOM Taken: 01/19/2018 Received: 01/23/2018 Reported: 01/24/2018 Physicians: Bob Cohen M.D. Specimen(s) Received DISC L4 - S1 Clinical History Spinal stenosis Final Diagnosis DISC, L4-S1, POSTERIOR LUMBAR FUSION: INTERVERTEBRAL DISC TISSUE AND BONE. Electronically Signed Kasey Bo M.D. Gross Description Received in formalin labeled "disc L4-S1," is a 5.5 x 4.0 x 0.6 cm aggregate of morillo fragments of fibrocartilaginous tissue. A billing representative portion is submitted in one cassette. /01/23/201801/23/2018
--- NOTE | 2018-01-24 13:50 | PN ---
Physical Exam: SUBJECTIVE: Patient seen and examined. Overnight Pt. slipped of the toilet and hit her buttocks, on attempt to help the patient to a standing position the pt.' s leg "gave out" and she fell down to her knees. Pt. states that after the Joy was removed she was told that she would receive a device for the toilet to help her sit down without having to go so low, this device was never given. Pt. received all of her pain medications over night and then given another dose of Dilaudid. Pt. received 0.5 mg of Ativan for her her anxiety prior to getting a morning X-ray( showed no acute pathology). Pt. denies SOB, CP, numbness and tingling or any other acute problems OBJECTIVE: Vital Signs Period Temp Pulse Resp BP Sys/Brenner Pulse Ox Last 24 Hr 97.5 F-98.6 F 92-118 17-23 98-132/57-85 96-96 GENERAL: The patient is awake, alert, and fully oriented, in moderate distress lying in bed. LUNGS: Limited Exam: Breath sounds equal, clear to auscultation bilaterally, no wheezes, no crackles, no accessory muscle use. HEART: Regular rhythm, tachycardic, nml S1, S2 without murmur ABDOMEN: Soft, nontender, nondistended, normoactive bowel sounds, no guarding, no rebound, no hepatosplenomegaly, no masses. EXTREMITIES: 2+ dorsal pedal pulses, warm, well-perfused, no edema, no calf tenderness. 3/5 muscle strength in RLE, 2/5 in LLE, motor and sensation grossly in tact in all extremities. NEUROLOGICAL: Normal speech, gait not observed. PSYCH: anxious, angry about last night's event SKIN: Warm, dry, normal turgor, no rashes or lesions noted Laboratory Results - last 24 hr 01/23/18 01/24/18 13:00 05:30 WBC 8.0 RBC 3.33 L Hgb 8.9 L Hct 26.7 L MCV 80.1 MCH 26.7 MCHC 33.3 RDW 16.8 H Plt Count 248 MPV 8.5 Ferritin 75.9 Active Medications Current Medications Diazepam (Valium -) 5 mg PO BID PRN PRN Reason: MUSCLE SPASMS Last Admin: 01/24/18 04:39 Dose: 5 mg Docusate Sodium (Colace -) 100 mg PO TID [facility] Last Admin: 01/24/18 05:56 Dose: 100 mg Gabapentin (Neurontin -) 300 mg PO TID [facility] Last Admin: 01/24/18 05:55 Dose: 300 mg Ondansetron HCl (Zofran Injection) 4 mg IVPUSH Q6H PRN PRN Reason: NAUSEA AND/OR VOMITING Oxycodone HCl (Roxicodone -) 5 mg PO Q6H PRN PRN Reason: PAIN LEVEL 4 - 6 Last Admin: 01/24/18 09:34 Dose: 5 mg Oxycodone HCl (Roxicodone -) 10 mg PO Q6H PRN PRN Reason: PAIN LEVEL 7 - 10 Last Admin: 01/24/18 00:00 Dose: 10 mg Oxycodone HCl (Oxycontin -) 10 mg PO BID [facility] Last Admin: 01/24/18 09:33 Dose: 10 mg Pantoprazole Sodium (Protonix -) 40 mg PO BID [facility] Last Admin: 01/24/18 09:34 Dose: 40 mg Polyethylene Glycol (Miralax (For Daily Use) -) 17 gm PO DAILY [facility] Last Admin: 01/24/18 09:35 Dose: Not Given Senna (Senna -) 2 tab PO HS PRN PRN Reason: CONSTIPATION Last Admin: 01/24/18 09:34 Dose: 2 tab ASSESSMENT/PLAN: Pt is a 47 yo F with PMH of chronic back pain and radiculopathy LLE>RLE, who presents to the ICU s/p L4-S1 laminectomies; L3 partial laminectomy; L4-L5, & L5 -S1 PLIF, L4-S1 PISF POD #5 (operation 01/19/2018). #Neurology -S/p L4-L5, & L5-S1 PLIF, L4-S1 PISF Pain control Rpt. X-ray shows no acute pathology C/w oxycontin 10 mg PO BID, and has been requesting morphine still C/w oxycodone 5mg and 10mg PRN -Anxiety Valium 5mg BID Primary team will be switching pain medications to PO so she is well-controlled when she leaves the hospital. PT/OT/Rehab, OOB. Pt able to get out of bed with PT today. Weight bearing as tolerated. #Cardiovascular -Anemia 2/2 acute blood loss? Pre-surgical H/H: (01/09) --> 8.9/26.7 today EBL was 600ml Primary team aware Reticulocyte count 1.67 f/u with Fe studies if necessary. MCV borderline low-normal (80). #Gastroenterology -Constipation Resolved C/w Docusate, Miralax and Senna PRN # -UTI Resolved- pt completed regimen of Macrobid #DVT Prophylaxis -TEDs & SCDs Only (no NSAIDs or heparin to be given) -40 mg Protonix 5. FEN -No IVF as pt is tolerating PO intake. -Electrolytes: F/u AM labs, replete as needed. Mg repleted this AM. -Pt has passed flatus; has started full diet. Dispo: -Subacute rehab pending primary team assessment -Discharge planning per Dr. Nelson: f/u 7-10 days after discharge at [facility] office; call for appointment; . Visit type - Emergency Visit Emergency Visit: No - New Patient This patient is new to me today: Yes Date on this admission: 01/24/18 - Critical Care Critical Care patient: No - Discharge Referral Referred to [facility] No
--- NOTE | 2018-01-24 15:20 | PN ---
Physical Exam: SUBJECTIVE: Patient seen and examined this AM. Overnight she states she had a fall and she hit the toilet with her buttocks and landed on her knees. She says she is still having pain in her back and knees which is now much worse than yesterday. Pt states she was not evaluated by physician after the incident though noted per documentation and discussion with ICU residents that she was seen and examined by ICU overnight resident. OBJECTIVE: Vital Signs Period Temp Pulse Resp BP Sys/Brenner Pulse Ox Last 24 Hr 97.5 F-98.6 F 92-118 17-23 105-132/57-85 96-96 GENERAL: A&O, mild distress currently HEAD: Normocephalic, atraumatic. EARS, NOSE, THROAT: oropharynx clear without exudates. Moist mucous membranes. LUNGS: CTA b/l, no crackles or wheezes HEART: Regular rate and rhythm, normal S1 and S2 without murmur ABDOMEN: Soft, nontender to palpation, normoactive bowel sounds MUSCULOSKELETAL: Dressing clean, dry and in tact posteriorly, tenderness to palpation in lumbar region. Motion and strength improving EXTREMITIES: 2+ pulses, warm, well-perfused. NEUROLOGICAL: Cranial nerves II-XII grossly intact. Neurosensory in tact in b/ l LE PSYCHIATRIC: Cooperative. Good eye contact. Appropriate mood and affect today SKIN: Warm, dry, no rashes or lesions noted. Laboratory Results - last 24 hr 01/24/18 05:30 WBC 8.0 RBC 3.33 L Hgb 8.9 L Hct 26.7 L MCV 80.1 MCH 26.7 MCHC 33.3 RDW 16.8 H Plt Count 248 MPV 8.5 Active Medications Generic Name Dose Route Start Last Admin Trade Name Freq PRN Reason Stop Dose Admin Diazepam 5 mg 01/23/18 13:51 01/24/18 04:39 Valium - PO 5 mg BID PRN Administration MUSCLE SPASMS Docusate Sodium 100 mg 01/24/18 06:00 01/24/18 05:56 Colace - PO 100 mg TID [facility] Administration Gabapentin 300 mg 01/24/18 06:00 01/24/18 05:55 Neurontin - PO 300 mg TID [facility] Administration Ondansetron HCl 4 mg 01/24/18 05:44 Zofran Injection IVPUSH Q6H PRN NAUSEA AND/OR VOMITING Oxycodone HCl 5 mg 01/23/18 10:17 01/24/18 09:34 Roxicodone - PO 5 mg Q6H PRN Administration PAIN LEVEL 4 - 6 Oxycodone HCl 10 mg 01/23/18 10:18 01/24/18 00:00 Roxicodone - PO 10 mg Q6H PRN Administration PAIN LEVEL 7 - 10 Oxycodone HCl 10 mg 01/24/18 10:00 01/24/18 09:33 Oxycontin - PO 10 mg BID [facility] Administration Pantoprazole Sodium 40 mg 01/24/18 10:00 01/24/18 09:34 Protonix - PO 40 mg BID [facility] Administration Polyethylene Glycol 17 gm 01/23/18 10:30 01/24/18 09:35 Miralax (For Daily Use) - PO Not Given DAILY [facility] Senna 2 tab 01/24/18 05:44 01/24/18 09:34 Senna - PO 2 tab HS PRN Administration CONSTIPATION ASSESSMENT/PLAN: 47 yo female s/p L3-S1 laminectomies; L4-L5, & L5-S1 PLIF, L4-S1 PISF. POD 4. Acute on Chronic Low back pain with radiculopathy to left leg, s/p laminectomy with fusions. POD 4 -Neurontin 300mg PO TID, Flexeril 10 mg PO TID, Valium 5 mg PO BID PRN, Oxycodone 5mg PO for Pain 4-6, Oxycodone 10 mg PO 7-10 pain -Advanced to regular diet, tolerating -Incentive spirometry -OOB/ working with PT -Can be transferred out of ICU or discharged when rehab bed available/authorized -Leukocytosis resolved -Oxycodone SR 10 mg PO BID Overnight event -Pt fell off toilet when readjusting -Evaluated by ICU resident -Lumbar spine X-ray: no fracture or sbluxation H/H slowly trending down post-op, stabilizing today -650 cc blood loss intraoperatively with 250 cc returned from [facility] -Pt was on fluids which could have been contributing to dilution -RBI 0.5, Iron studies pending -Pain improving at surgical site with no sign of swelling or hematoma, very unlikely losses into surgical site UTI -Completed treatment with macrobid -not currently complaining of dysuria, hematuria DVT Prophylaxis -Mechanical only -Early ambulation and activity FEN -Fluids: None -Electrolytes: No electrolyte abnormalities -Nutrition: Regular diet Disposition Stable to return to Med/Surg, can be d/c from ICU when Subacute Rehab bed available Visit type - Emergency Visit Emergency Visit: Yes ED Registration Date: 01/10/18 Care time: The patient presented to the Emergency Department on the above date and was hospitalized for further evaluation of their emergent condition. - New Patient This patient is new to me today: No - Critical Care Critical Care patient: Yes Total Critical Care Time (in minutes): 35 Critical Care Statement: The care of this patient involved high complexity decision making to prevent further life threatening deterioration of the patient 's condition and/or to evaluate & treat vital organ system(s) failure or risk of failure.
[2018-01-25 06:06] LABS: SERUM IRON SATURATION 7 % (15-55); TOTAL IRON BINDING CAPACITY 288 ug/dL (250-450); UIBC 269 ug/dL (131-425)
[2018-01-25] MEDS: DOCUSATE SODIUM 100 MG CAPSULE (FP) PO SCH ×3 (06:47→21:22)
[2018-01-25] MEDS: GABAPENTIN 300 MG CAPSULE (FP) PO SCH ×3 (06:47→21:22)
--- NOTE | 2018-01-25 07:05 | PN ---
Physical Exam: SUBJECTIVE: Patient seen and examined this AM. Pt anxious and has been giving 5 Valium PO for muscle spasms. The pt had a fall yesterday as she was attempting to use the bathroom. Her R knee "gave out" and the two people holding her were unable to bear her weight. She fell onto her bottom on the toilet, and then onto her knees. Repeat imaging showed no acute fractures or dislocations. The pt complains of mild back cramping and soreness today. She says she feels "depressed," but declined speaking to psychiatrist while she is inpatient. She has been having BMs and urinating without difficulty. She has been tolerating PO intake. She has been afebrile and vitals were stable overnight. OBJECTIVE: Vital Signs Period Temp Pulse Resp BP Sys/Brenner Pulse Ox Last 24 Hr 98.0 F-98.5 F 95-105 12-23 100-132/60-70 94-96 GENERAL: The patient is awake, alert, and fully oriented, in no acute distress. The pt becomes tearful when describing her fall yesterday. HEAD: Normal with no signs of trauma. EYES: Extraocular movements intact, sclera anicteric, conjunctiva clear. No ptosis. ENT: External ears normal, nares patent, oropharynx clear without exudates, moist mucous membranes. NECK: Trachea midline, full range of motion, supple. LUNGS: Breath sounds equal, clear to auscultation bilaterally, no wheezes, no crackles, no accessory muscle use. HEART: Regular rate and rhythm, S1, S2 without murmur, rub or gallop. ABDOMEN: Soft, nontender, nondistended, normoactive bowel sounds, no guarding, no rebound, no hepatosplenomegaly, no masses. EXTREMITIES: 2+ pulses, warm, well-perfused, no pitting edema. SCDs in place. Back is covered with clean and intact dressing. NEUROLOGICAL: Cranial nerves II through XII grossly intact. Strength and sensation in b/l UE and LE WNL. Normal speech, gait not observed. PSYCH: Normal mood and happy affect this morning. SKIN: Warm, dry, normal turgor, no rashes or lesions noted. Laboratory Results - last 24 hr 01/23/18 13:00 Iron 19 L TIBC 288 Iron Saturation 7 L Active Medications Generic Name Dose Route Start Last Admin Trade Name Freq PRN Reason Stop Dose Admin Diazepam 5 mg 01/23/18 13:51 01/24/18 16:14 Valium - PO 5 mg BID PRN Administration MUSCLE SPASMS Docusate Sodium 100 mg 01/24/18 06:00 01/25/18 06:47 Colace - PO 100 mg TID SANDRA Administration Gabapentin 300 mg 01/24/18 06:00 01/25/18 06:47 Neurontin - PO 300 mg TID SANDRA Administration Ondansetron HCl 4 mg 01/24/18 05:44 Zofran Injection IVPUSH Q6H PRN NAUSEA AND/OR VOMITING Oxycodone HCl 5 mg 01/23/18 10:17 01/24/18 09:34 Roxicodone - PO 5 mg Q6H PRN Administration PAIN LEVEL 4 - 6 Oxycodone HCl 10 mg 01/23/18 10:18 01/24/18 23:53 Roxicodone - PO 10 mg Q6H PRN Administration PAIN LEVEL 7 - 10 Oxycodone HCl 10 mg 01/24/18 10:00 01/24/18 21:13 Oxycontin - PO 10 mg BID SANDRA Administration Pantoprazole Sodium 40 mg 01/24/18 10:00 01/24/18 21:14 Protonix - PO 40 mg BID SANDRA Administration Polyethylene Glycol 17 gm 01/23/18 10:30 01/24/18 09:35 Miralax (For Daily Use) - PO Not Given DAILY SANDRA Senna 2 tab 01/24/18 05:44 01/24/18 09:34 Senna - PO 2 tab HS PRN Administration CONSTIPATION ASSESSMENT/PLAN: Pt is a 47 yo F with PMH of chronic back pain and radiculopathy LLE>RLE, who presents to the ICU s/p L4-S1 laminectomies; L3 partial laminectomy; L4-L5, & L5 -S1 PLIF, L4-S1 PISF POD #6 (operation 01/19/2018). 1. S/p Laminectomy -Pain control Continue PO meds only; scheduled oxycodone 10 mg PO BID, and 5 mg Valium for muscle relaxation -PT/OT/Rehab, OOB. Pt has been ambulating with nursing staff and PT help to go to the bathroom. Weight bearing as tolerated. Primary team attempting to time Valium before her PT. Pt has been anxious about PT considering her fall yesterday. -Q4h B/L lower extremity neurovascular checks. -Post-op antibiotics x 2 doses were given (Ancef & Vancomycin) -Davol drain output removed yesterday by Dr. Nelson -Joy catheter d/c. She has been able to have BMs and urination. -Discharge planning per Dr. Nelson: f/u 7-10 days after discharge at [facility] office; call for appointment; [phone]. 2. Anemia -Pre-surgical H/H: (01/09) --> 8.9/26.7 today -Primary team aware. Reticulocyte high. Iron studies consistent with Fe deficiency anemia. 3. -UTI (resolved) - pt completed regimen of Macrobid 4. Prophylaxis -TEDs & SCDs Only (no NSAIDs or heparin to be given) -40 mg Protonix 5. FEN -Fluids d/c, as pt is tolerating PO intake. -Not followed by primary team, as electrolytes have been WNL. -Pt has passed flatus; has started full diet. Dispo: Transfer to med/surg floor in place. May discharge from ICU to rehab center. Pending primary team decision. Problem List - Problems (1) S/P laminectomy Code(s): Z98.890 - OTHER SPECIFIED POSTPROCEDURAL STATES (2) Low back pain Code(s): M54.5 - LOW BACK PAIN Qualifiers: Chronicity: acute Back pain laterality: left Sciatica presence: with sciatica Sciatica laterality: sciatica of left side Qualified Code(s): M54.42 - Lumbago with sciatica, left side Visit type - Emergency Visit Emergency Visit: No - New Patient This patient is new to me today: No - Critical Care Critical Care patient: Yes Total Critical Care Time (in minutes): 30 Critical Care Statement: The care of this patient involved high complexity decision making to prevent further life threatening deterioration of the patient 's condition and/or to evaluate & treat vital organ system(s) failure or risk of failure. - Discharge Referral Referred to [facility] Med P.C.: Yes
[2018-01-25] MEDS: oxyCODONE HCL 5 MG TABLET PO PRN ×3 (07:23→21:35)
[2018-01-25] MEDS ORDERED: diazePAM 5 MG TABLET PO PRN (07:48)
--- NOTE | 2018-01-25 07:48 | PN ---
Teaching Attending Note Name of Resident: David Diaz ATTENDING PHYSICIAN STATEMENT I saw and evaluated the patient. I reviewed the resident's note and discussed the case with the resident. I agree with the resident's findings and plan as documented with exceptions below. SUBJECTIVE: Patient seen and examined. still with muscle spasms, better spirits today, motivated to work with PT. no new complaints. no new or worsening knee or back pain today. OBJECTIVE: Vital Signs Period Temp Pulse Resp BP Sys/Brenner Pulse Ox Last 24 Hr 98.0 F-98.5 F 95-105 12-23 100-132/60-70 94-96 Intake & Output 01/22/18 01/23/18 01/24/18 01/25/18 23:59 23:59 23:59 23:59 Intake Total 1442 550 940 Output Total 550 2000 700 Balance 892 -1450 240 Weight 245 lb 6 oz 242 lb 242 lb 242 lb 1.6 oz General:sitting in chair in no acute distress Musculoskeletal: spinal dressing clean, improved ROM LLE, Extremities: no edema, no knee swelling/tenderness noted. Active Medications Diazepam (Valium -) 5 mg PO BID PRN PRN Reason: MUSCLE SPASMS Last Admin: 01/24/18 16:14 Dose: 5 mg Docusate Sodium (Colace -) 100 mg PO TID [facility] Last Admin: 01/25/18 06:47 Dose: 100 mg Gabapentin (Neurontin -) 300 mg PO TID [facility] Last Admin: 01/25/18 06:47 Dose: 300 mg Ondansetron HCl (Zofran Injection) 4 mg IVPUSH Q6H PRN PRN Reason: NAUSEA AND/OR VOMITING Oxycodone HCl (Roxicodone -) 5 mg PO Q6H PRN PRN Reason: PAIN LEVEL 4 - 6 Last Admin: 01/25/18 07:23 Dose: 5 mg Oxycodone HCl (Roxicodone -) 10 mg PO Q6H PRN PRN Reason: PAIN LEVEL 7 - 10 Last Admin: 01/24/18 23:53 Dose: 10 mg Oxycodone HCl (Oxycontin -) 10 mg PO BID [facility] Last Admin: 01/24/18 21:13 Dose: 10 mg Pantoprazole Sodium (Protonix -) 40 mg PO BID [facility] Last Admin: 01/24/18 21:14 Dose: 40 mg Polyethylene Glycol (Miralax (For Daily Use) -) 17 gm PO DAILY SANDRA Last Admin: 01/24/18 09:35 Dose: Not Given Senna (Senna -) 2 tab PO HS PRN PRN Reason: CONSTIPATION Last Admin: 01/24/18 09:34 Dose: 2 tab LS spine xray noted Laboratory Results - last 24 hr 01/23/18 13:00 Iron 19 L TIBC 288 Iron Saturation 7 L ASSESSMENT AND PLAN: 47 yo F with PMhx of chronic back pain, Lumbar disc disease (reportedly since injury in 04/2016), followed by Dr. Nelson (spine), and Dr Thomas (pain management) comes with worsening back pain and lumbar radiculopathy for last 2 days. - Acute severe lumbar spinal stenosis with neurogenic claudication- L3 partial laminectomy. 2. L4, L5, S1 laminectomies. 3. L4-L5, L5-S1 discectomies. 4. L4 -L5, L5-S1 posterior lumbar interbody fusion. 5. L4-S1 postero-lateral instrumentation. 6. L4-S1 postero-lateral arthrodesis. 7. Bone marrow aspiration. 8. Bone autograft. 9. Bone allograft on 01/19. -Anemia due to acute blood loss (From surgical and hemovac blood loss) and iron deficiency -Leucocytosis, suspect from surgical stress, resolved -Morbid obesity (BMI 40.3) -Recent UTI, s/p 7 days of macrobid Plan: Oxycontin. oxycodone prn for pain, Avoid IV meds. Continue PT. Continue gabapentin. Resume Flexeril 10 mg TID prn for muscle spasms. Taper valium to off. H/h stable. Interval monitoring. Iron panel noted, start PO Fe suppl. Bowel regimen. Hold off on knee xrays as improved and non concerning exam. Weight loss counseling and dietary consult. DVTPPX SCDs per orthopedic spine Dispo for [facility] when arranged. Plan discussed with patient in detail, all questions answered. Awaiting transfer to medical floors. Plan discussed with patient in detail, all questions answered. The care of this patient involved high complexity decision making to prevent further life threatening deterioration of the patient's condition and/or to evaluate & treat vital organ system(s) failure or risk of failure. 32 minutes
[2018-01-25] MEDS: POLYETHYLENE GLYCOL 3350 119 GM BTL PO SCH (10:09)
[2018-01-25] MEDS: oxyCODONE HCL 10 MG SUSTAINED ACTING TABLET PO SCH ×2 (10:12→21:25)
[2018-01-25] MEDS: PANTOPRAZOLE 40 MG TABLET (FP) PO SCH ×2 (10:13→21:22)
[2018-01-25] MEDS: diazePAM 5 MG TABLET PO PRN (11:01)
[2018-01-25] MEDS: FERROUS SO4 325 MG TABLET (FP) PO SCH (11:01)
[2018-01-25 12:47] VITALS: BMI 40.2
--- NOTE | 2018-01-25 14:48 | PN ---
Teaching Attending Note Name of Resident: Gloria Song ATTENDING PHYSICIAN STATEMENT I saw and evaluated the patient. I reviewed the resident's note and discussed the case with the resident. I agree with the resident's findings and plan as documented. SUBJECTIVE: Events overnight noted. Awake and alert. Pain seems better controlled with PO pain meds. No CP or SOB. Intake & Output 01/22/18 01/23/18 01/24/18 01/25/18 23:59 23:59 23:59 23:59 Intake Total 1442 550 940 500 Output Total 550 2000 700 1200 Balance 892 -1450 240 -700 Weight 245 lb 6 oz 242 lb 242 lb 242 lb 1.6 oz Last Vital Signs Temp Pulse Resp BP Pulse Ox 98.1 F 115 H 17 102/75 97 01/25/18 14:00 01/25/18 14:00 01/25/18 14:00 01/25/18 14:00 01/25/18 08:00 Active Medications Cyclobenzaprine HCl (Flexeril -) 10 mg PO TID PRN PRN Reason: MUSCLE SPASMS Diazepam (Valium -) 5 mg PO DAILY PRN PRN Reason: MUSCLE SPASMS Last Admin: 01/25/18 11:01 Dose: 5 mg Docusate Sodium (Colace -) 100 mg PO TID [facility] Last Admin: 01/25/18 13:31 Dose: 100 mg Ferrous Sulfate (Feosol -) 325 mg PO DAILY [facility] Last Admin: 01/25/18 11:01 Dose: 325 mg Gabapentin (Neurontin -) 300 mg PO TID [facility] Last Admin: 01/25/18 13:31 Dose: 300 mg Ondansetron HCl (Zofran Injection) 4 mg IVPUSH Q6H PRN PRN Reason: NAUSEA AND/OR VOMITING Oxycodone HCl (Roxicodone -) 5 mg PO Q6H PRN PRN Reason: PAIN LEVEL 4 - 6 Last Admin: 01/25/18 07:23 Dose: 5 mg Oxycodone HCl (Roxicodone -) 10 mg PO Q6H PRN PRN Reason: PAIN LEVEL 7 - 10 Last Admin: 01/25/18 13:36 Dose: 10 mg Oxycodone HCl (Oxycontin -) 10 mg PO BID [facility] Last Admin: 01/25/18 10:12 Dose: 10 mg Pantoprazole Sodium (Protonix -) 40 mg PO BID [facility] Last Admin: 01/25/18 10:13 Dose: 40 mg Polyethylene Glycol (Miralax (For Daily Use) -) 17 gm PO DAILY [facility] Last Admin: 01/25/18 10:09 Dose: 17 gm Senna (Senna -) 2 tab PO HS PRN PRN Reason: CONSTIPATION Last Admin: 01/24/18 09:34 Dose: 2 tab General: awake, alert w/o distress Heent: PERRL, no JVD, anicteric sclera Pulm: CTA CV: RRR Abd: obese, Soft, NT, ND, (+) BS Ext: WWP, trace LE edema Back: clean Neuro: AOx3 Laboratory Results - last 24 hr 01/23/18 13:00 Iron 19 L TIBC 288 Iron Saturation 7 L IMP: S/P L3 partial laminectomy L4, L5, S1 laminectomies L4-L5, L5-S1 discectomies L4-L5, L5-S1 posterior lumbar interbody fusion L4-S1 postero-lateral instrumentation L4-S1 postero-lateral arthrodesis Bone marrow aspiration Bone autograft Bone allograft PLAN: Percocet for pain Incentive Spirometry O2 as needed VTE prophylaxis PT/OT Bowel regimen PO as tolerated Floor / DC planning Dr Allen
[2018-01-25] MEDS: CYCLOBENZAPRINE HCL 10 MG TABLET (FP) PO PRN ×2 (18:08→21:35)
--- NOTE | 2018-01-25 18:41 | PN ---
Physical Exam: SUBJECTIVE: Patient seen and examined this AM. Discussed goals and plans at length with patient and provided emotional support and counseling as pt is frustrated being in the hospital still. Still complaining of back and knee pain and muscle weakness / legs giving out when she has back spasms. OBJECTIVE: Vital Signs Period Temp Pulse Resp BP Sys/Brenner Pulse Ox Last 24 Hr 97.9 F-98.5 F 91-121 12-19 100-135/60-118 94-97 GENERAL: A&O, mild distress currently HEAD: Normocephalic, atraumatic. EARS, NOSE, THROAT: oropharynx clear without exudates. Moist mucous membranes. LUNGS: CTA b/l, no crackles or wheezes HEART: Regular rate and rhythm, normal S1 and S2 without murmur ABDOMEN: Soft, nontender to palpation, normoactive bowel sounds MUSCULOSKELETAL: Dressing clean, dry and in tact posteriorly, tenderness to palpation in lumbar region. Motion and strength improving EXTREMITIES: 2+ pulses, warm, well-perfused. NEUROLOGICAL: Cranial nerves II-XII grossly intact. Neurosensory in tact in b/ l LE PSYCHIATRIC: Cooperative. Good eye contact. Appropriate mood and affect today SKIN: Warm, dry, no rashes or lesions noted. Laboratory Results - last 24 hr 01/23/18 13:00 Iron 19 L TIBC 288 Iron Saturation 7 L Active Medications Generic Name Dose Route Start Last Admin Trade Name Freq PRN Reason Stop Dose Admin Cyclobenzaprine HCl 10 mg 01/25/18 10:35 01/25/18 18:08 Flexeril - PO 10 mg TID PRN Administration MUSCLE SPASMS Diazepam 5 mg 01/25/18 10:36 01/25/18 11:01 Valium - PO 5 mg DAILY PRN Administration MUSCLE SPASMS Docusate Sodium 100 mg 01/24/18 06:00 01/25/18 13:31 Colace - PO 100 mg TID SANDRA Administration Ferrous Sulfate 325 mg 01/25/18 10:45 01/25/18 11:01 Feosol - PO 325 mg DAILY SANDRA Administration Gabapentin 300 mg 01/24/18 06:00 01/25/18 13:31 Neurontin - PO 300 mg TID SANDRA Administration Ondansetron HCl 4 mg 01/24/18 05:44 Zofran Injection IVPUSH Q6H PRN NAUSEA AND/OR VOMITING Oxycodone HCl 5 mg 01/23/18 10:17 01/25/18 07:23 Roxicodone - PO 5 mg Q6H PRN Administration PAIN LEVEL 4 - 6 Oxycodone HCl 10 mg 01/23/18 10:18 01/25/18 13:36 Roxicodone - PO 10 mg Q6H PRN Administration PAIN LEVEL 7 - 10 Oxycodone HCl 10 mg 01/24/18 10:00 01/25/18 10:12 Oxycontin - PO 10 mg BID SANDRA Administration Pantoprazole Sodium 40 mg 01/24/18 10:00 01/25/18 10:13 Protonix - PO 40 mg BID SANDRA Administration Polyethylene Glycol 17 gm 01/23/18 10:30 01/25/18 10:09 Miralax (For Daily Use) - PO 17 gm DAILY SANDRA Administration Senna 2 tab 01/24/18 05:44 01/24/18 09:34 Senna - PO 2 tab HS PRN Administration CONSTIPATION ASSESSMENT/PLAN: 47 yo female s/p L3-S1 laminectomies; L4-L5, & L5-S1 PLIF, L4-S1 PISF. POD 4. Acute on Chronic Low back pain with radiculopathy to left leg, s/p laminectomy with fusions. POD 4 -Neurontin 300mg PO TID, Flexeril 10 mg PO TID, Valium 5 mg PO Daily PRN ( Tapering off), Oxycodone 5mg PO for Pain 4-6, Oxycodone 10 mg PO 7-10 pain -Advanced to regular diet, tolerating -Incentive spirometry -OOB / working with PT -Transferrred to med/surg, can be discharged when rehab bed available/authorized -Leukocytosis resolved -Oxycodone SR 10 mg PO BID H/H slowly trending down post-op, stabilizing -650 cc blood loss intraoperatively with 250 cc returned from [facility] -Pt was on fluids which could have been contributing to dilution -RBI 0.5, Iron deficient -Pain improving at surgical site with no sign of swelling or hematoma, very unlikely losses into surgical site -PO Iron started today, will monitor carefully and adjust bowel regimen as needed -CBC in AM UTI -Completed treatment with macrobid -not currently complaining of dysuria, hematuria DVT Prophylaxis -Mechanical only -Early ambulation and activity FEN -Fluids: None -Electrolytes: No electrolyte abnormalities -Nutrition: Regular diet Disposition Med/Surg, can be d/c from ICU when Subacute Rehab bed available Visit type - Emergency Visit Emergency Visit: Yes ED Registration Date: 01/10/18 Care time: The patient presented to the Emergency Department on the above date and was hospitalized for further evaluation of their emergent condition. - New Patient This patient is new to me today: No - Critical Care Critical Care patient: No
[2018-01-26] MEDS: oxyCODONE HCL 5 MG TABLET PO PRN ×5 (03:44→18:19)
[2018-01-26] MEDS: CYCLOBENZAPRINE HCL 10 MG TABLET (FP) PO PRN ×3 (03:44→23:03)
[2018-01-26] MEDS: DOCUSATE SODIUM 100 MG CAPSULE (FP) PO SCH ×3 (05:45→23:03)
[2018-01-26] MEDS: GABAPENTIN 300 MG CAPSULE (FP) PO SCH ×3 (05:46→23:03)
[2018-01-26 08:37] LABS: HEMATOCRIT 29.5 % (32.4-45.2); HEMOGLOBIN 9.6 GM/dL (10.7-15.3); MCH 26.1 pg (25.7-33.7); MCHC 32.6 g/dl (32.0-36.0); MEAN CELL VOLUME 80.1 fl (80-96); MEAN PLT VOLUME 8.6 fl (7.5-11.1); PLATELET COUNT 321 K/MM3 (134-434); RBC 3.69 M/mm3 (3.60-5.2); WHITE BLOOD COUNT 8.2 K/mm3 (4.0-10.0)
[2018-01-26] MEDS: oxyCODONE HCL 10 MG SUSTAINED ACTING TABLET PO SCH ×3 (08:38→23:02)
[2018-01-26] MEDS: POLYETHYLENE GLYCOL 3350 119 GM BTL PO SCH (09:25)
[2018-01-26] MEDS: FERROUS SO4 325 MG TABLET (FP) PO SCH (09:25)
[2018-01-26] MEDS: PANTOPRAZOLE 40 MG TABLET (FP) PO SCH ×2 (09:25→23:02)
[2018-01-26] MEDS: diazePAM 5 MG TABLET PO PRN (09:33)
[2018-01-26] MEDS: SENNOSIDES 8.6MG TABLET (FP) PO PRN (09:34)
--- NOTE | 2018-01-26 14:39 | PN ---
Teaching Attending Note Name of Resident: David Diaz ATTENDING PHYSICIAN STATEMENT I saw and evaluated the patient. I reviewed the resident's note and discussed the case with the resident. I agree with the resident's findings and plan as documented with exceptions below. SUBJECTIVE: Patient seen and examined. still with back and leg pain, motivated to work with PT. No new complaints. OBJECTIVE: Vital Signs Period Temp Pulse Resp BP Sys/Brenner Pulse Ox Last 24 Hr 98.0 F-98.4 F 103-115 16-18 85-145/55-82 97-98 Intake & Output 01/23/18 01/24/18 01/25/18 01/26/18 23:59 23:59 23:59 23:59 Intake Total 289 524 8566 120 Output Total 2000 700 1550 Balance -1450 240 -380 120 Weight 242 lb 242 lb 242 lb 1.6 oz General: sitting in chair in no acute distress Musculoskeletal: clean dressing, ROM lower extremities overall unchanged Home Medications Medication Instructions Recorded Cyclobenzaprine HCl 10 mg PO HS 01/09/18 Meloxicam 15 mg PO AM 01/09/18 Medroxyprogesterone Acetate 10 mg PO DAILY 01/10/18 Nitrofurantoin Monohyd/M-Cryst 100 mg PO BID 01/10/18 [Macrobid -] Oxycodone HCl/Acetaminophen 1 each PO Q6H 01/10/18 [Oxycodone-Acetaminophen 5-325] Laboratory Results - last 24 hr 01/26/18 06:30 WBC 8.2 RBC 3.69 Hgb 9.6 L Hct 29.5 L MCV 80.1 MCH 26.1 MCHC 32.6 RDW 16.0 H Plt Count 321 D MPV 8.6 ASSESSMENT AND PLAN: 47 yo F with PMhx of chronic back pain, Lumbar disc disease (reportedly since injury in 04/2016), followed by Dr. Nelson (spine), and Dr Thomas (pain management) comes with worsening back pain and lumbar radiculopathy for last 2 days. - Acute severe lumbar spinal stenosis with neurogenic claudication- L3 partial laminectomy. 2. L4, L5, S1 laminectomies. 3. L4-L5, L5-S1 discectomies. 4. L4 -L5, L5-S1 posterior lumbar interbody fusion. 5. L4-S1 postero-lateral instrumentation. 6. L4-S1 postero-lateral arthrodesis. 7. Bone marrow aspiration. 8. Bone autograft. 9. Bone allograft on 01/19. -Anemia due to acute blood loss (From surgical and hemovac blood loss) and iron deficiency -Leucocytosis, suspect from surgical stress, resolved -Morbid obesity (BMI 40.3) -Recent UTI, s/p 7 days of macrobid Plan: Oxycontin. oxycodone prn for pain, Avoid IV meds. Continue PT. Continue gabapentin. Flexeril 10 mg TID prn for muscle spasms. Taper valium to off. H/h stable. Interval monitoring. Iron panel noted, started PO Fe suppl. Bowel regimen. Hold off on knee xrays as improved and non concerning exam. Weight loss counseling and dietary consult. DVTPPX SCDs per orthopedic spine Dispo for [facility] when arranged. Plan discussed with patient in detail, all questions answered. Awaiting transfer to medical floors. Plan discussed with patient in detail, all questions answered.
--- NOTE | 2018-01-26 17:22 | PN ---
Physical Exam: SUBJECTIVE: Patient seen and examined this AM. Pt states she is in pain from the uncomfortable bed but that spasms are improving. States she walked 40 feet twice with PT yesterday. OBJECTIVE: Vital Signs Period Temp Pulse Resp BP Sys/Brenner Pulse Ox Last 24 Hr 98.0 F-98.6 F 103-120 18-20 85-145/55-82 97-98 GENERAL: A&O, mild distress currently HEAD: Normocephalic, atraumatic. EARS, NOSE, THROAT: oropharynx clear without exudates. Moist mucous membranes. LUNGS: CTA b/l, no crackles or wheezes HEART: Regular rate and rhythm, normal S1 and S2 without murmur ABDOMEN: Soft, nontender to palpation, normoactive bowel sounds MUSCULOSKELETAL: Dressing clean, dry and in tact posteriorly, tenderness to palpation in lumbar region. Motion and strength improving EXTREMITIES: 2+ pulses, warm, well-perfused. NEUROLOGICAL: Cranial nerves II-XII grossly intact. Neurosensory in tact in b/ l LE PSYCHIATRIC: Cooperative. Good eye contact. Appropriate mood and affect today SKIN: Warm, dry, no rashes or lesions noted. Laboratory Results - last 24 hr 01/26/18 06:30 WBC 8.2 RBC 3.69 Hgb 9.6 L Hct 29.5 L MCV 80.1 MCH 26.1 MCHC 32.6 RDW 16.0 H Plt Count 321 D MPV 8.6 Active Medications Generic Name Dose Route Start Last Admin Trade Name Freq PRN Reason Stop Dose Admin Cyclobenzaprine HCl 10 mg 01/25/18 10:35 01/26/18 11:29 Flexeril - PO 10 mg TID PRN Administration MUSCLE SPASMS Diazepam 5 mg 01/25/18 10:36 01/26/18 09:33 Valium - PO 5 mg DAILY PRN Administration MUSCLE SPASMS Docusate Sodium 100 mg 01/24/18 06:00 01/26/18 14:41 Colace - PO 100 mg TID SANDRA Administration Ferrous Sulfate 325 mg 01/25/18 10:45 01/26/18 09:25 Feosol - PO 325 mg DAILY SANDRA Administration Gabapentin 300 mg 01/24/18 06:00 01/26/18 14:40 Neurontin - PO 300 mg TID SANDRA Administration Ondansetron HCl 4 mg 01/24/18 05:44 Zofran Injection IVPUSH Q6H PRN NAUSEA AND/OR VOMITING Oxycodone HCl 5 mg 01/23/18 10:17 01/26/18 16:39 Roxicodone - PO 5 mg Q6H PRN Administration PAIN LEVEL 4 - 6 Oxycodone HCl 10 mg 01/23/18 10:18 01/26/18 11:29 Roxicodone - PO 10 mg Q6H PRN Administration PAIN LEVEL 7 - 10 Oxycodone HCl 10 mg 01/24/18 10:00 01/26/18 09:26 Oxycontin - PO Not Given BID SANDRA Pantoprazole Sodium 40 mg 01/24/18 10:00 01/26/18 09:25 Protonix - PO 40 mg BID SANDRA Administration Polyethylene Glycol 17 gm 01/23/18 10:30 01/26/18 09:25 Miralax (For Daily Use) - PO 17 gm DAILY SANDRA Administration Senna 2 tab 01/24/18 05:44 01/26/18 09:34 Senna - PO 2 tab HS PRN Administration CONSTIPATION ASSESSMENT/PLAN: 47 yo female s/p L3-S1 laminectomies; L4-L5, & L5-S1 PLIF, L4-S1 PISF. POD 4. Acute on Chronic Low back pain with radiculopathy to left leg, s/p laminectomy with fusions. POD 4 -Neurontin 300mg PO TID, Flexeril 10 mg PO TID, Valium 5 mg PO Daily PRN ( Tapering off), Oxycodone 5mg PO for Pain 4-6, Oxycodone 10 mg PO 7-10 pain, can start to alternate in ibuprofen if okay with surgery. -Advanced to regular diet, tolerating -Incentive spirometry -OOB / working with PT - walked 40 feet twice yesterday -Can be discharged when rehab bed available/authorized -Leukocytosis resolved -Oxycodone SR 10 mg PO BID H/H slowly trending down post-op, improving -650 cc blood loss intraoperatively with 250 cc returned from [facility] -Pt was on fluids which could have been contributing to dilution -RBI 0.5, Iron deficient -Pain improving at surgical site with no sign of swelling or hematoma, very unlikely losses into surgical site -PO Iron started, will monitor carefully and adjust bowel regimen as needed -H/H improving UTI -Completed treatment with macrobid -not currently complaining of dysuria, hematuria DVT Prophylaxis -Mechanical only -Early ambulation and activity FEN -Fluids: None -Electrolytes: No electrolyte abnormalities -Nutrition: Regular diet Disposition Med/Surg, can be d/c from ICU when Subacute Rehab bed available Visit type - Emergency Visit Emergency Visit: Yes ED Registration Date: 01/10/18 Care time: The patient presented to the Emergency Department on the above date and was hospitalized for further evaluation of their emergent condition. - New Patient This patient is new to me today: No - Critical Care Critical Care patient: No - Discharge Referral Referred to [facility] Med P.C.: No
[2018-01-27] MEDS: DOCUSATE SODIUM 100 MG CAPSULE (FP) PO SCH ×3 (06:29→21:35)
[2018-01-27] MEDS: GABAPENTIN 300 MG CAPSULE (FP) PO SCH ×3 (06:29→21:35)
[2018-01-27] MEDS: oxyCODONE HCL 5 MG TABLET PO PRN ×2 (06:31→19:36)
[2018-01-27] MEDS: CYCLOBENZAPRINE HCL 10 MG TABLET (FP) PO PRN ×3 (08:03→21:38)
--- NOTE | 2018-01-27 09:04 | PN ---
Teaching Attending Note Name of Resident: Rosalind Navarrete ATTENDING PHYSICIAN STATEMENT I saw and evaluated the patient. I reviewed the resident's note and discussed the case with the resident. I agree with the resident's findings and plan as documented with exceptions below. SUBJECTIVE: Patient seen and examined. back pain controlled, frustrated about unable to get to rehab yet, but no new complaints. OBJECTIVE: Vital Signs Period Temp Pulse Resp BP Sys/Brenner Pulse Ox Last 24 Hr 98.2 F-98.9 F 106-120 18-20 90-137/57-71 96-98 Intake & Output 01/24/18 01/25/18 01/26/18 01/27/18 23:59 23:59 23:59 23:59 Intake Total 940 1170 320 Output Total 700 1550 Balance 240 -380 320 Weight 242 lb 242 lb 1.6 oz 239 lb 3.2 oz General: lying in bed in no acute distress Musculoskeletal: back dressing clean, no surrounding erythema/bleed or discharge ROM LLE slowly improving, no new concerns Abdomen:soft, obese, NT Chest: CTAB, no rales or wheezing Active Medications Cyclobenzaprine HCl (Flexeril -) 10 mg PO TID PRN PRN Reason: MUSCLE SPASMS Last Admin: 01/27/18 08:03 Dose: 10 mg Docusate Sodium (Colace -) 100 mg PO TID [facility] Last Admin: 01/27/18 06:29 Dose: 100 mg Ferrous Sulfate (Feosol -) 325 mg PO DAILY [facility] Last Admin: 01/26/18 09:25 Dose: 325 mg Gabapentin (Neurontin -) 300 mg PO TID [facility] Last Admin: 01/27/18 06:29 Dose: 300 mg Ondansetron HCl (Zofran Injection) 4 mg IVPUSH Q6H PRN PRN Reason: NAUSEA AND/OR VOMITING Oxycodone HCl (Roxicodone -) 5 mg PO Q6H PRN PRN Reason: PAIN LEVEL 4 - 6 Last Admin: 01/26/18 16:39 Dose: 5 mg Oxycodone HCl (Roxicodone -) 10 mg PO Q6H PRN PRN Reason: PAIN LEVEL 7 - 10 Last Admin: 01/27/18 06:31 Dose: 10 mg Oxycodone HCl (Oxycontin -) 10 mg PO BID [facility] Last Admin: 01/26/18 23:02 Dose: 10 mg Pantoprazole Sodium (Protonix -) 40 mg PO BID [facility] Last Admin: 01/26/18 23:02 Dose: 40 mg Polyethylene Glycol (Miralax (For Daily Use) -) 17 gm PO DAILY [facility] Last Admin: 01/26/18 09:25 Dose: 17 gm Senna (Senna -) 2 tab PO HS PRN PRN Reason: CONSTIPATION Last Admin: 01/26/18 09:34 Dose: 2 tab ASSESSMENT AND PLAN: 47 yo F with PMhx of chronic back pain, Lumbar disc disease (reportedly since injury in 04/2016), followed by Dr. Nelson (spine), and Dr Thomas (pain management) comes with worsening back pain and lumbar radiculopathy for last 2 days. - Acute severe lumbar spinal stenosis with neurogenic claudication- L3 partial laminectomy. 2. L4, L5, S1 laminectomies. 3. L4-L5, L5-S1 discectomies. 4. L4 -L5, L5-S1 posterior lumbar interbody fusion. 5. L4-S1 postero-lateral instrumentation. 6. L4-S1 postero-lateral arthrodesis. 7. Bone marrow aspiration. 8. Bone autograft. 9. Bone allograft on 01/19. -Anemia due to acute blood loss (From surgical and hemovac blood loss) and iron deficiency -Leucocytosis, suspect from surgical stress, resolved -Morbid obesity (BMI 40.3) -Recent UTI, s/p 7 days of macrobid Plan: Oxycontin. oxycodone prn for pain, Avoid IV meds. Continue PT. Continue gabapentin. Flexeril 10 mg TID prn for muscle spasms. Taper valium to off. d/c today H/h stable. Interval monitoring. Iron panel noted, PO Fe suppl. Bowel regimen. Weight loss counseling and dietary consult. DVTPPX SCDs per orthopedic spine Dispo for [facility] when arranged. Discussed with RN, continue working PT. Awaiting insurance approval for [facility] discharge. Plan discussed with patient in detail, all questions answered.
[2018-01-27] MEDS: FERROUS SO4 325 MG TABLET (FP) PO SCH (10:07)
[2018-01-27] MEDS: oxyCODONE HCL 10 MG SUSTAINED ACTING TABLET PO SCH ×2 (10:07→21:35)
[2018-01-27] MEDS: PANTOPRAZOLE 40 MG TABLET (FP) PO SCH ×2 (10:07→21:35)
[2018-01-27] MEDS: POLYETHYLENE GLYCOL 3350 119 GM BTL PO SCH (10:08)
--- NOTE | 2018-01-27 10:29 | PN ---
Physical Exam: SUBJECTIVE: Patient seen and examined at bedside this morning. No acute events overnight. Patient has no new complaints. OBJECTIVE: Vital Signs Period Temp Pulse Resp BP Sys/Brenner Pulse Ox Last 24 Hr 98.2 F-98.9 F 106-120 18-20 90-133/57-71 96 GENERAL: awake, alert, oriented, not in acute distress. HEAD: Normocephalic, atraumatic. EARS, NOSE, THROAT: oropharynx clear without exudates. Moist mucous membranes. LUNGS: clear to auscultation bilaterally. HEART: Regular rate and rhythm, normal S1 and S2 without murmur ABDOMEN: Soft, nontender to palpation, normoactive bowel sounds MUSCULOSKELETAL: Dressing clean, dry and intact posteriorly, tenderness to palpation in lumbar region. EXTREMITIES: 2+ pulses, warm, well-perfused. NEUROLOGICAL: Cranial nerves II-XII grossly intact. Sensation intact. PSYCHIATRIC: Cooperative. Good eye contact. Appropriate mood and affect today. SKIN: Warm, dry, no rashes or lesions noted. Active Medications Generic Name Dose Route Start Last Admin Trade Name Freq PRN Reason Stop Dose Admin Cyclobenzaprine HCl 10 mg 01/25/18 10:35 01/27/18 08:03 Flexeril - PO 10 mg TID PRN Administration MUSCLE SPASMS Docusate Sodium 100 mg 01/24/18 06:00 01/27/18 06:29 Colace - PO 100 mg TID [facility] Administration Ferrous Sulfate 325 mg 01/25/18 10:45 01/27/18 10:07 Feosol - PO 325 mg DAILY [facility] Administration Gabapentin 300 mg 01/24/18 06:00 01/27/18 06:29 Neurontin - PO 300 mg TID [facility] Administration Ondansetron HCl 4 mg 01/24/18 05:44 Zofran Injection IVPUSH Q6H PRN NAUSEA AND/OR VOMITING Oxycodone HCl 5 mg 01/23/18 10:17 01/26/18 16:39 Roxicodone - PO 5 mg Q6H PRN Administration PAIN LEVEL 4 - 6 Oxycodone HCl 10 mg 01/23/18 10:18 01/27/18 06:31 Roxicodone - PO 10 mg Q6H PRN Administration PAIN LEVEL 7 - 10 Oxycodone HCl 10 mg 01/24/18 10:00 01/27/18 10:07 Oxycontin - PO 10 mg BID [facility] Administration Pantoprazole Sodium 40 mg 01/24/18 10:00 01/27/18 10:07 Protonix - PO 40 mg BID [facility] Administration Polyethylene Glycol 17 gm 01/23/18 10:30 01/27/18 10:08 Miralax (For Daily Use) - PO 17 gm DAILY [facility] Administration Senna 2 tab 01/24/18 05:44 01/26/18 09:34 Senna - PO 2 tab HS PRN Administration CONSTIPATION ASSESSMENT/PLAN: Patient is a 47 year old female presented with intractable back pain s/p L3-S1 Laminectomies; L4-L5, L5-S1 PLIF. #Acute on Chronic Low back pain with radiculopathy to left leg, s/p laminectomy with fusions. POD 5 -Neurontin 300mg PO TID, Flexeril 10 mg PO TID, Oxycodone 5mg PO for Pain 4-6, Oxycodone 10 mg PO 7-10 pain, can start to alternate in ibuprofen if okay with surgery. -Valium 5 mg discontinued. -Can tolerate regular diet. -Incentive spirometry -OOB / working with PT - walked 45 feet yesterday. -Can be discharged when rehab bed available/authorized -Leukocytosis resolved -Oxycodone SR 10 mg PO BID #Anemia- stable -650 cc blood loss intraoperatively with 250 cc returned from [facility] -Pt was on fluids which could have been contributing to dilution -RBI 0.5, Iron deficient -Pain improving at surgical site with no sign of swelling or hematoma, very unlikely losses into surgical site -PO Iron started, will monitor carefully and adjust bowel regimen as needed -H/H stable, interval monitoring #UTI -Completed treatment with macrobid -not currently complaining of dysuria, hematuria #DVT Prophylaxis -Mechanical only -Early ambulation and activity #FEN -Fluids: None -Electrolytes: No electrolyte abnormalities -Nutrition: Regular diet #Disposition -Med/Surg -Awaiting insurance approval for [facility] discharge. Visit type - Emergency Visit Emergency Visit: Yes ED Registration Date: 01/10/18 Care time: The patient presented to the Emergency Department on the above date and was hospitalized for further evaluation of their emergent condition. - New Patient This patient is new to me today: Yes Date on this admission: 01/29/18 - Critical Care Critical Care patient: No
[2018-01-28] MEDS: DOCUSATE SODIUM 100 MG CAPSULE (FP) PO SCH ×3 (06:23→23:02)
[2018-01-28] MEDS: GABAPENTIN 300 MG CAPSULE (FP) PO SCH ×3 (06:23→23:04)
[2018-01-28] MEDS: oxyCODONE HCL 10 MG SUSTAINED ACTING TABLET PO SCH ×2 (10:33→23:03)
[2018-01-28] MEDS: POLYETHYLENE GLYCOL 3350 119 GM BTL PO SCH (10:33)
[2018-01-28] MEDS: FERROUS SO4 325 MG TABLET (FP) PO SCH (10:33)
[2018-01-28] MEDS: PANTOPRAZOLE 40 MG TABLET (FP) PO SCH ×2 (10:34→23:03)
--- NOTE | 2018-01-28 11:12 | PN ---
Physical Exam: SUBJECTIVE: Patient seen and examined, intermittent leg spasms, but working with PT, improving, overall better than before. No new complaints. OBJECTIVE: Vital Signs Period Temp Pulse Resp BP Sys/Brenner Pulse Ox Last 24 Hr 97.8 F-98.3 F 101-114 18-18 97-124/50-70 98 General: lying in bed in no acute distress Musculoskeletal: back dressing clean, no surrounding erythema/bleed or discharge ROM LLE slowly improving, no new concerns Abdomen:soft, obese, NT Chest: CTAB, no rales or wheezing Extremities: no edema, pulses bilaterally CVS:S1S2 regular Home Medications Medication Instructions Recorded Cyclobenzaprine HCl 10 mg PO HS 01/09/18 Meloxicam 15 mg PO AM 01/09/18 Medroxyprogesterone Acetate 10 mg PO DAILY 01/10/18 Nitrofurantoin Monohyd/M-Cryst 100 mg PO BID 01/10/18 [Macrobid -] Oxycodone HCl/Acetaminophen 1 each PO Q6H 01/10/18 [Oxycodone-Acetaminophen 5-325] Active Medications Generic Name Dose Route Start Last Admin Trade Name Freq PRN Reason Stop Dose Admin Cyclobenzaprine HCl 10 mg 01/25/18 10:35 01/27/18 21:38 Flexeril - PO 10 mg TID PRN Administration MUSCLE SPASMS Docusate Sodium 100 mg 01/24/18 06:00 01/28/18 06:23 Colace - PO 100 mg TID [facility] Administration Ferrous Sulfate 325 mg 01/25/18 10:45 01/28/18 10:33 Feosol - PO 325 mg DAILY [facility] Administration Gabapentin 300 mg 01/24/18 06:00 01/28/18 06:23 Neurontin - PO 300 mg TID [facility] Administration Ondansetron HCl 4 mg 01/24/18 05:44 Zofran Injection IVPUSH Q6H PRN NAUSEA AND/OR VOMITING Oxycodone HCl 5 mg 01/23/18 10:17 01/26/18 16:39 Roxicodone - PO 5 mg Q6H PRN Administration PAIN LEVEL 4 - 6 Oxycodone HCl 10 mg 01/23/18 10:18 01/27/18 19:36 Roxicodone - PO 10 mg Q6H PRN Administration PAIN LEVEL 7 - 10 Oxycodone HCl 10 mg 01/24/18 10:00 01/28/18 10:33 Oxycontin - PO 10 mg BID [facility] Administration Pantoprazole Sodium 40 mg 01/24/18 10:00 01/28/18 10:34 Protonix - PO 40 mg BID [facility] Administration Polyethylene Glycol 17 gm 01/23/18 10:30 01/28/18 10:33 Miralax (For Daily Use) - PO 17 gm DAILY [facility] Administration Senna 2 tab 01/24/18 05:44 01/26/18 09:34 Senna - PO 2 tab HS PRN Administration CONSTIPATION ASSESSMENT/PLAN: 47 yo F with PMhx of chronic back pain, Lumbar disc disease (reportedly since injury in 04/2016), followed by Dr. Nelson (spine), and Dr Thomas (pain management) comes with worsening back pain and lumbar radiculopathy for last 2 days. - Acute severe lumbar spinal stenosis with neurogenic claudication- L3 partial laminectomy. 2. L4, L5, S1 laminectomies. 3. L4-L5, L5-S1 discectomies. 4. L4 -L5, L5-S1 posterior lumbar interbody fusion. 5. L4-S1 postero-lateral instrumentation. 6. L4-S1 postero-lateral arthrodesis. 7. Bone marrow aspiration. 8. Bone autograft. 9. Bone allograft on 01/19. -Anemia due to acute blood loss (From surgical and hemovac blood loss) and iron deficiency -Leucocytosis, suspect from surgical stress, resolved -Morbid obesity (BMI 40.3) -Recent UTI, s/p 7 days of macrobid Plan: Oxycontin. oxycodone prn for pain, Avoid IV meds. Continue PT. Continue gabapentin. Flexeril 10 mg TID prn for muscle spasms, give before PT, discussed with nursing. H/h stable. Interval monitoring. Iron panel noted, PO Fe suppl. Bowel regimen. Weight loss counseling and dietary consult. DVTPPX SCDs per orthopedic spine Dispo for [facility] when arranged. Discussed with RN, continue working with PT. Awaiting insurance approval for [facility] discharge. Plan discussed with patient in detail, all questions answered. Visit type - Emergency Visit Emergency Visit: Yes ED Registration Date: 01/10/18 Care time: The patient presented to the Emergency Department on the above date and was hospitalized for further evaluation of their emergent condition. - New Patient This patient is new to me today: No - Critical Care Critical Care patient: No - Discharge Referral Referred to [facility] Med P.C.: No
[2018-01-28] MEDS: oxyCODONE HCL 5 MG TABLET PO PRN (20:19)
[2018-01-29] MEDS: oxyCODONE HCL 5 MG TABLET PO PRN ×2 (05:34→12:35)
[2018-01-29] MEDS: DOCUSATE SODIUM 100 MG CAPSULE (FP) PO SCH ×3 (05:34→21:30)
[2018-01-29] MEDS: GABAPENTIN 300 MG CAPSULE (FP) PO SCH ×3 (05:34→21:31)
[2018-01-29] MEDS: CYCLOBENZAPRINE HCL 10 MG TABLET (FP) PO PRN (07:08)
--- NOTE | 2018-01-29 07:19 | PN ---
Physical Exam: SUBJECTIVE: Patient seen and examined this AM. She states that yesterday she was able to walk up and down the entire [place] which is much better than when I saw her before the weekend. OBJECTIVE: Vital Signs Period Temp Pulse Resp BP Sys/Brenner Pulse Ox Last 24 Hr 98.1 F-98.4 F 91-110 18-18 89-157/57-109 98-98 GENERAL: A&O, mild distress currently HEAD: Normocephalic, atraumatic. EARS, NOSE, THROAT: oropharynx clear without exudates. Moist mucous membranes. LUNGS: CTA b/l, no crackles or wheezes HEART: Regular rate and rhythm, normal S1 and S2 without murmur ABDOMEN: Soft, nontender to palpation, normoactive bowel sounds MUSCULOSKELETAL: Dressing clean, dry and in tact posteriorly, mild tenderness to palpation in lumbar region. Motion and strength improving EXTREMITIES: 2+ pulses, warm, well-perfused. NEUROLOGICAL: Cranial nerves II-XII grossly intact. Neurosensory in tact in b/ l LE PSYCHIATRIC: Cooperative. Good eye contact. Appropriate mood and affect today SKIN: Warm, dry, no rashes or lesions noted. Active Medications Generic Name Dose Route Start Last Admin Trade Name Freq PRN Reason Stop Dose Admin Cyclobenzaprine HCl 10 mg 01/25/18 10:35 01/29/18 07:08 Flexeril - PO 10 mg TID PRN Administration MUSCLE SPASMS Docusate Sodium 100 mg 01/24/18 06:00 01/29/18 05:34 Colace - PO 100 mg TID [facility] Administration Ferrous Sulfate 325 mg 01/25/18 10:45 01/28/18 10:33 Feosol - PO 325 mg DAILY [facility] Administration Gabapentin 300 mg 01/24/18 06:00 01/29/18 05:34 Neurontin - PO 300 mg TID [facility] Administration Ondansetron HCl 4 mg 01/24/18 05:44 Zofran Injection IVPUSH Q6H PRN NAUSEA AND/OR VOMITING Oxycodone HCl 5 mg 01/23/18 10:17 01/29/18 05:34 Roxicodone - PO 5 mg Q6H PRN Administration PAIN LEVEL 4 - 6 Oxycodone HCl 10 mg 01/23/18 10:18 01/27/18 19:36 Roxicodone - PO 10 mg Q6H PRN Administration PAIN LEVEL 7 - 10 Oxycodone HCl 10 mg 01/24/18 10:00 01/28/18 23:03 Oxycontin - PO 10 mg BID [facility] Administration Pantoprazole Sodium 40 mg 01/24/18 10:00 01/28/18 23:03 Protonix - PO 40 mg BID [facility] Administration Polyethylene Glycol 17 gm 01/23/18 10:30 01/28/18 10:33 Miralax (For Daily Use) - PO 17 gm DAILY [facility] Administration Senna 2 tab 01/24/18 05:44 01/26/18 09:34 Senna - PO 2 tab HS PRN Administration CONSTIPATION ASSESSMENT/PLAN: 47 yo female s/p L3-S1 laminectomies; L4-L5, & L5-S1 PLIF, L4-S1 PISF. POD 4. Acute on Chronic Low back pain with radiculopathy to left leg, s/p laminectomy with fusions. POD 4 -Neurontin 300mg PO TID, Flexeril 10 mg PO TID, Oxycodone 5mg PO for Pain 4-6, Oxycodone 10 mg PO 7-10 pain, can start to alternate in ibuprofen if okay with surgery. -Advanced to regular diet, tolerating -Incentive spirometry -OOB / working with PT - walked to [facility] and back -Can be discharged when rehab bed available/authorized -Leukocytosis resolved -Oxycodone SR 10 mg PO BID H/H slowly trending down post-op, improving -650 cc blood loss intraoperatively with 250 cc returned from [facility] -Pt was on fluids which could have been contributing to dilution -RBI 0.5, Iron deficient -Pain improving at surgical site with no sign of swelling or hematoma, very unlikely losses into surgical site -PO Iron started, will monitor carefully and adjust bowel regimen as needed -H/H improving UTI -Completed treatment with macrobid -not currently complaining of dysuria, hematuria DVT Prophylaxis -Mechanical only -Early ambulation and activity FEN -Fluids: None -Electrolytes: No electrolyte abnormalities -Nutrition: Regular diet Disposition Med/Surg, can be d/c to acute rehab when insurance authorizes Visit type - Emergency Visit Emergency Visit: Yes ED Registration Date: 01/10/18 Care time: The patient presented to the Emergency Department on the above date and was hospitalized for further evaluation of their emergent condition. - New Patient This patient is new to me today: No - Critical Care Critical Care patient: No
--- NOTE | 2018-01-29 08:21 | PN ---
Teaching Attending Note Name of Resident: David Diaz ATTENDING PHYSICIAN STATEMENT I saw and evaluated the patient. I reviewed the resident's note and discussed the case with the resident. I agree with the resident's findings and plan as documented with exceptions below. SUBJECTIVE: Patient seen and examined. Intermittent muscle spasms, working with PT. Markedly improved, better ambulation, better spirits. OBJECTIVE: Vital Signs Period Temp Pulse Resp BP Sys/Brenner Pulse Ox Last 24 Hr 98.1 F-98.4 F 91-110 18-18 89-157/57-109 98-98 Intake & Output 01/26/18 01/27/18 01/28/18 01/29/18 23:59 23:59 23:59 23:59 Intake Total 320 740 720 240 Output Total 1450 1450 Balance 320 -710 -730 240 Weight 239 lb 3.2 oz 240 lb 1.6 oz General: lying in bed in no acute distress Musculoskeletal: back dressing clean, ROM Lower extremities improved Active Medications Cyclobenzaprine HCl (Flexeril -) 10 mg PO TID PRN PRN Reason: MUSCLE SPASMS Last Admin: 01/29/18 07:08 Dose: 10 mg Docusate Sodium (Colace -) 100 mg PO TID [facility] Last Admin: 01/29/18 05:34 Dose: 100 mg Ferrous Sulfate (Feosol -) 325 mg PO DAILY [facility] Last Admin: 01/28/18 10:33 Dose: 325 mg Gabapentin (Neurontin -) 300 mg PO TID [facility] Last Admin: 01/29/18 05:34 Dose: 300 mg Ondansetron HCl (Zofran Injection) 4 mg IVPUSH Q6H PRN PRN Reason: NAUSEA AND/OR VOMITING Oxycodone HCl (Roxicodone -) 5 mg PO Q6H PRN PRN Reason: PAIN LEVEL 4 - 6 Last Admin: 01/29/18 05:34 Dose: 5 mg Oxycodone HCl (Roxicodone -) 10 mg PO Q6H PRN PRN Reason: PAIN LEVEL 7 - 10 Last Admin: 01/27/18 19:36 Dose: 10 mg Oxycodone HCl (Oxycontin -) 10 mg PO BID [facility] Last Admin: 01/28/18 23:03 Dose: 10 mg Pantoprazole Sodium (Protonix -) 40 mg PO BID [facility] Last Admin: 01/28/18 23:03 Dose: 40 mg Polyethylene Glycol (Miralax (For Daily Use) -) 17 gm PO DAILY [facility] Last Admin: 01/28/18 10:33 Dose: 17 gm Senna (Senna -) 2 tab PO HS PRN PRN Reason: CONSTIPATION Last Admin: 01/26/18 09:34 Dose: 2 tab ASSESSMENT AND PLAN: 47 yo F with PMhx of chronic back pain, Lumbar disc disease (reportedly since injury in 04/2016), followed by Dr. Nelson (spine), and Dr Thomas (pain management) comes with worsening back pain and lumbar radiculopathy for last 2 days. - Acute severe lumbar spinal stenosis with neurogenic claudication- L3 partial laminectomy. 2. L4, L5, S1 laminectomies. 3. L4-L5, L5-S1 discectomies. 4. L4 -L5, L5-S1 posterior lumbar interbody fusion. 5. L4-S1 postero-lateral instrumentation. 6. L4-S1 postero-lateral arthrodesis. 7. Bone marrow aspiration. 8. Bone autograft. 9. Bone allograft on 01/19. -Anemia due to acute blood loss (From surgical and hemovac blood loss) and iron deficiency -Leucocytosis, suspect from surgical stress, resolved -Morbid obesity (BMI 40.3) -Recent UTI, s/p 7 days of macrobid Plan: Oxycontin. oxycodone prn for pain, Avoid IV meds. Continue PT. Continue gabapentin. Flexeril 10 mg TID prn for muscle spasms, give before PT, discussed with nursing. H/h stable. Interval monitoring. Iron panel noted, PO Fe suppl. Bowel regimen. Weight loss counseling and dietary consult. DVTPPX SCDs per orthopedic spine Dispo for [facility] when arranged. Discussed with RN, continue working with PT. Awaiting insurance approval for [facility] discharge. Plan discussed with patient in detail, all questions answered.
[2018-01-29] MEDS: oxyCODONE HCL 10 MG SUSTAINED ACTING TABLET PO SCH ×2 (09:40→21:31)
[2018-01-29] MEDS: FERROUS SO4 325 MG TABLET (FP) PO SCH (09:40)
[2018-01-29] MEDS: PANTOPRAZOLE 40 MG TABLET (FP) PO SCH ×2 (09:40→21:31)
[2018-01-29] MEDS: POLYETHYLENE GLYCOL 3350 119 GM BTL PO SCH (09:41)
--- NOTE | 2018-01-29 17:41 | PN ---
Progress Note (short form) - Note Progress Note: 47F s/p L4-S1 laminectomies; L3 partial laminectomy; L4-L5, & L5-S1 PLIF, L4-S1 PISF POD #10. Pain well controlled. No acute events overnight. Pt. reports post-operative total resolution of bilateral lower extremity radiculopathy (pain, numbness, and tingling). Diffuse LLE weakness persists. Pt. denies overnight history of headaches, chest pain, shortness of breath, nausea, vomiting, chills, & sweats. (+) Voiding; (+) Flatus; (+) BM. Tolerating diet. (+) Walked in hallway with rolling walker. All labs and vitals reviewed. PE: AAO x 3, NAD. L-Spine: Incision, dressing C/D/I. RLE M: L2-S1 5/5. LLE M: L2-S1 4/5. B/L LE S: L2-S1 2/2. 47F doing well s/p L4-S1 laminectomies; L3 partial laminectomy; L4-L5, & L5-S1 PLIF, L4-S1 PISF POD #10. -Pain control: per anaesthesia team. -DVT PPx: - Mechanical only: LEOPOLDO's, SCD's. -Incentive spirometry q15min. -PT/OT/Rehab, OOB. -WBAT B/L LE. -q4h B/L LE [place] checks. -Raised toilet seat. -Diet as tolerated. -Care per ICU & medical hospitalist team. -Discharge planning: f/u 7-10 days after discharge at [facility] office; call for appointment; . -Will follow. Gage Nelson MD (Orthopaedic Surgery).
[2018-01-29] MEDS ORDERED: PT OWN MED DRAWER 7, Y5N ONE (21:21)
[2018-01-30] MEDS: oxyCODONE HCL 5 MG TABLET PO PRN ×2 (06:01→14:00)
[2018-01-30] MEDS: CYCLOBENZAPRINE HCL 10 MG TABLET (FP) PO PRN (06:01)
[2018-01-30] MEDS: DOCUSATE SODIUM 100 MG CAPSULE (FP) PO SCH ×2 (06:01→14:00)
[2018-01-30] MEDS: GABAPENTIN 300 MG CAPSULE (FP) PO SCH ×2 (06:01→14:00)
[2018-01-30] MEDS: FERROUS SO4 325 MG TABLET (FP) PO SCH (10:37)
[2018-01-30] MEDS: PANTOPRAZOLE 40 MG TABLET (FP) PO SCH (10:38)
[2018-01-30] MEDS: POLYETHYLENE GLYCOL 3350 119 GM BTL PO SCH (10:38)
[2018-01-30] MEDS: oxyCODONE HCL 10 MG SUSTAINED ACTING TABLET PO SCH (10:38)
--- NOTE | 2018-01-30 12:11 | DS ---
Physical Exam: SUBJECTIVE: Patient seen and examined this AM. States she is ready to go home and will not be going to rehab as her insurance is not authorizing it. Says she has been up walking up and down the escobar with a walker and feels better than she has so far on this admission. OBJECTIVE: Vital Signs Period Temp Pulse Resp BP Sys/Brenner Pulse Ox Last 24 Hr 97.9 F-98.4 F 88-107 18-20 108-126/63-85 98 PHYSICAL EXAM GENERAL: A&O, mild distress currently HEAD: Normocephalic, atraumatic. EARS, NOSE, THROAT: oropharynx clear without exudates. Moist mucous membranes. LUNGS: CTA b/l, no crackles or wheezes HEART: Regular rate and rhythm, normal S1 and S2 without murmur ABDOMEN: Soft, nontender to palpation, normoactive bowel sounds MUSCULOSKELETAL: Dressing clean, dry and in tact posteriorly, mild tenderness to palpation in lumbar region. Motion and strength much better EXTREMITIES: 2+ pulses, warm, well-perfused. NEUROLOGICAL: Cranial nerves II-XII grossly intact. Neurosensory in tact in b/ l LE PSYCHIATRIC: Cooperative. Good eye contact. Appropriate mood and affect today SKIN: Warm, dry, no rashes or lesions noted. LABS IMAGING: Lumbar spine X-ray: No fracture or subluxation of the joints Lumbar spine MRI (prior to surgery): L3-L4 facet joint arthropathy with central spinal canal stenosis, L4-L5 facet joint arthropathy with central spinal canal stenosis, widened left facet joint with joint effusion, L5-S1 b/l foraminal narrowing, facet joint arthropathy with central spinal canal stenosis, Disc in right neural foramen contacting right L5 nerve. HOSPITAL COURSE: Date of Admission:01/10/18 Date of Discharge: 01/30/18 47 yo female with chronic low back pain secondary to spinal stenosis admitted for acute onset of worsening back pain. Her pain was somewhat controlled during her stay, and she was seen by physical therapy. During her admission, she was seen by Dr. Nelson who knew her well as an outpatient. He elected to take her to surgery for L3-S1 laminectomies; L4-L5, & L5-S1 PLIF, L4-S1 PISF. She was monitored in the ICU post-op. She was stable and tolerating her diet as well as getting OOB to chair. She was transferred out of the ICU. Once she was walking her Joy was d/c and her diet was advanced as tolerated. She was deemed medically stable for discharge with improvement of preop symptoms and control of post-op pain. It was initially recommended that patient go to subacute rehab for continued PT and improvement of mobility, though insurance authorization held up for an extensive number of days and pt was eventually deemed medically safe to be discharged to home. Pt agreed and expressed desire to go home at this point with follow up with PCP and Dr. Nelson for staple removal within one week. Minutes to complete discharge: 35 Discharge Summary Reason For Visit: LOW BACK PAIN Current Active Problems Low back pain (Acute) Lumbar radiculopathy (Acute) Lumbar stenosis with neurogenic claudication (Acute) S/P laminectomy (Acute) Condition: Fair - Instructions Diet, Activity, Other Instructions: You were admitted for severe back pain. You were seen by orthopedic surgery who recommended and performed surgery. You were seen by physical therapy daily and continued to improve with your pain and mobility and many of the initial medications you were requiring for pain and muscle spasms were tapered off. You are being sent home with pain medications, muscle relaxers, and a rolling walker. The pain medications will be prescribed by Dr. Nelson, and may vary slightly from the instructions below. It is important that you take them as prescribed by Dr. Nelson if they are changed. You should also continue working with physical therapy outpatient to strengthen your back and improve your mobility. Continue to take the Oxycontin (long acting) 10 mg twice daily, one pill in the morning, and one at night. You can take the additional oxycodone 10 mg for breakthrough pain once every 6 hours. If your pain is milder you can break it in half for a dose of 5mg instead. You can take the flexeril 10 mg every 8 hours for muscle spasms. Take the Gabapentin 300mg three times daily, one pill in the morning, one at noon, and one at night. You were also started on oral Iron supplement in during this admission. You should continue to take one pill daily for three months and follow up with your primary care physician for follow up iron studies in 3 months. The oral iron supplements can cause constipation, especially in addition to the narcotic pain medications. It is important that you have regular bowel movements. You can use over the counter stool softeners or Miralax as needed for regular bowel movements. It is important that you follow up with your primary care physician within 1 week of discharge from the hospital. You should also follow up with Dr. Nelson for follow up and removal of your renard in one week. If your severe back pain returns, it is important that you call Dr. Nelson's office or return to the ED. Referrals: Tripp Ballesteros MD [Staff Physician] - 1 Week Gage Nelson MD [Staff Physician] - 1 Week Disposition: HOME - Home Medications Comprehensive Discharge Medication List: Ambulatory Orders Medroxyprogesterone Acetate 10 mg PO DAILY 01/10/18 Cyclobenzaprine HCl [Flexeril -] 10 mg PO TID PRN #90 tablet 01/30/18 Ferrous Sulfate [Feosol] 325 mg PO DAILY #30 ud 01/30/18 Gabapentin [Neurontin -] 300 mg PO TID #90 capsule 01/30/18 Walker [Ultra-Light Rollator] 1 each MC DAILY #1 each 01/30/18 oxyCODONE HCL [Roxicodone -] 10 mg PO Q6H PRN #7 tablet MDD 40 01/30/18 oxyCODONE SR [Oxycontin] 10 mg PO BID #14 [id number] MDD 20 01/30/18 This patient is new to me today: No Emergency Visit: Yes ED Registration Date: 01/10/18 Care time: The patient presented to the Emergency Department on the above date and was hospitalized for further evaluation of their emergent condition. Critical Care patient: No - Discharge Referral Referred to [facility] Med P.C.: No
--- NOTE | 2018-01-30 12:12 | PN ---
Teaching Attending Note Name of Resident: David Diaz ATTENDING PHYSICIAN STATEMENT I saw and evaluated the patient. I reviewed the resident's note and discussed the case with the resident. I agree with the resident's findings and plan as documented. SUBJECTIVE:asymptomatic. states pain is controlled. ambulating well with RW. denies Cp, SOB, fever, chills, N/V/C/D OBJECTIVE: Last Vital Signs Temp Pulse Resp BP Pulse Ox 98.1 F 88 18 117/66 98 01/30/18 05:42 01/30/18 05:42 01/30/18 05:42 01/30/18 05:42 01/29/18 21:00 General NAD ASSESSMENT AND PLAN: 47 yo F with PMhx of chronic back pain, Lumbar disc disease (reportedly since injury in 04/2016), followed by Dr. Nelson (spine), and Dr Thomas (pain management) comes with worsening back pain and lumbar radiculopathy for last 2 days. 1. Acute severe lumbar spinal stenosis with neurogenic claudication- L3 partial laminectomy. 2. L4, L5, S1 laminectomies. 3. L4-L5, L5-S1 discectomies. 4. L4 -L5, L5-S1 posterior lumbar interbody fusion. 5. L4-S1 postero-lateral instrumentation. 6. L4-S1 postero-lateral arthrodesis. 7. Bone marrow aspiration. 8. Bone autograft. 9. Bone allograft on 01/19. tolerated surgery well. perioperative Abx. tolerating diet. pain is controlled. cont current regimen and can titrate off medications as able to. cont with outpatient PT. ortho f/u outpatient. cont muscle relaxers. 2. Normocytic anemia due to acute blood loss anemia-and iron def anemia. started on iron supplements. advised on side effects of iron supplements and to monitor BM as can cause constipation in addition to narcotic use. will need repeat iron studies in 3 months. 3. leukcytosis- likely stress induced from surgery. resolved 4. Obesity- BMI 38. intentional 20lb weight loss through diet. dietary eval to support dietary changes 5. Recent UTI- completed abx treatment 6. DVT ppx- SCD. hold pharmacologic anticoagulation 7. d/c home with RW and VNS/PT.
[2018-01-30 12:27] VITALS: BP 109/63; PULSE 98; TEMP 97.4
== END 2018-01-30 15:47 | disposition home or self-care (01) | DRG 304 ==
LOC: JERFT 12:42 → JERBED 01-10 00:41 → OBSVTOIN 01-10 01:32 → J5S 01-10 08:21 → JICU 01-20 02:28 → J8W 01-25 17:24
PROVIDERS: ADMIT Internal Medicine; ATTEND Internal Medicine
PROC: 07DR0ZZ Extraction of Iliac Bone Marrow, Open Approach (ICD-10-PCS; 2018-01-19)
PROC: 0SB40ZZ Excision of Lumbosacral Disc, Open Approach (ICD-10-PCS; 2018-01-19)
PROC: 00Q20ZZ Repair Dura Mater, Open Approach (ICD-10-PCS; 2018-01-19)
PROC: 0SG30AJ Fusion of Lumbosacral Joint with Interbody Fusion Device, Posterior Approach, Anterior Column, Open Approach (ICD-10-PCS; principal; 2018-01-19 14:00)
DX: M48.07 Spinal stenosis, lumbosacral region (principal); M43.17 Spondylolisthesis, lumbosacral region; M40.209 Unspecified kyphosis, site unspecified; D62 Acute posthemorrhagic anemia; D50.9 Iron deficiency anemia, unspecified; E66.01 Morbid (severe) obesity due to excess calories; Z68.41 Body mass index [BMI] 40.0-44.9, adult; F17.210 Nicotine dependence, cigarettes, uncomplicated; N39.0 Urinary tract infection, site not specified; M51.27 Other intervertebral disc displacement, lumbosacral region; M51.17 Intervertebral disc disorders with radiculopathy, lumbosacral region; D72.829 Elevated white blood cell count, unspecified; W18.30XA Fall on same level, unspecified, initial encounter; Y92.231 Patient bathroom in hospital as the place of occurrence of the external cause
CPT/HCPCS: 36415; 72100-TC-FY; 72148-TC; 76000-TC-FY; 80048; 80053; 81003; 81015; 82728; 82962; 83540; 83550; 83735; 84100; 84703; 85025; 85027; 85044; 85610; 86850; 86891; 86900; 86901; 88304-TC; 93005; 93010; 93971-TC; 94010; 94760; 97116-GP; 97161-GP; 99283-25; G0378; J0131; J0475; J1644